=== PATIENT | male | born 1970 | race Caucasian/White ===

== ENCOUNTER 2021-04-04 09:57 | Inpatient (IN) ==
[2021-04-04 10:44] LABS: Basophils # (auto) 0.01 K/uL (0-0.2); Basophils % (auto) 0.2 %; Eosinophils # (auto) 0.09 K/uL (0-0.5); Eosinophils % (auto) 1.4 %; Hemoglobin 15.2 g/dL (14.0-18.0); Immature Granulocytes # (auto) 0.02 K/uL (0.00-0.02); Immature Granulocytes % (auto) 0.3 %; Lymphocytes # (auto) 2.05 K/uL (1.2-3.4); Lymphocytes % (auto) 32.6 %; Mean Corpuscular Hgb Conc 35.3 g/dL (32-36); Mean Corpuscular Volume 87.6 fL (80-100); Mean Platelet Volume 9.9 fL (7.4-10.4); Monocytes # (auto) 0.59 K/uL (0.11-0.59); Monocytes % (auto) 9.4 %; Neutrophils # (auto) 3.52 K/uL (1.4-6.5); Neutrophils % (auto) 56.1 %; Platelet Count 222 K/uL (130-400); RDW Coefficient of Variation 12.7 % (11.5-14.5); RDW Standard Deviation 40.5 fL (36.4-46.3); Red Blood Count 4.91 M/uL (4.7-6.1); White Blood Count 6.28 K/uL (4.8-10.8)
[2021-04-04] MEDS ORDERED: MoRPHine SULFATE 4 MG/ML 1 ML CARP\\VIAL IV STA (10:54)
[2021-04-04] MEDS ORDERED: SODIUM CHLORIDE 0.9% 1000ML 1,000 ML IV ONE (10:54)
[2021-04-04] MEDS ORDERED: ONDANSETRON INJ 2 MG/ML 2 ML VIAL IV STA (10:54)
--- NOTE | 2021-04-04 10:57 | Emergency Department Note ---
Impression & Plan Abdominal pain, Morbid obesity ED Provider Note NAME: CRISTOFER [id number] TESHA AGE: 50 SEX: M : 1970 ARRIVES VIA: Walk-In INFORMANT: Patient ED PROVIDER(S): Pietro Valdovinos DO CHIEF COMPLAINT: abdominal pain HPI: Patient is a 50-year-old male who presents the ER for abdominal pain. He notes this pain has been getting worse over the past month. Admits to nausea and vomiting. Very small bowel movement in past 48hrs. Pain is a 10-10 diffuse but worse in the lower quadrants. Admits to nausea. Denies any dysuria, urgency, or frequency. Notes he has been taking his Lasix. He was seen and evaluated in group home referred in for further work-up. Pain is significantly worsened on palpation. ROS: See above HPI for pertinent positives & negatives. A total of 10 systems reviewed and were otherwise negative. PAST MEDICAL HISTORY:See Below PAST SURGICAL HISTORY:See Below FAMILY HISTORY:See Below SOCIAL HISTORY:See Below HOME MEDICATIONS:See Below ALLERGIES:See Below VITALS:See Below PHYSICAL EXAMINATION: GENERAL: Sitting up in bed, alert, morbidly obese, disheveled EYE EXAM: normal conjunctiva. OROPHARYNX: no exudate, no erythema, lips, buccal mucosa, and tongue normal and mucous membranes are moist NECK: supple, no nuchal rigidity, no adenopathy, non-tender LUNGS: Clear to auscultation. Normal chest wall mechanics HEART: no murmurs, S1 normal and S2 normal ABDOMEN: Abdomen distended with old midline incisions acutely tender with guarding diffusely worse in the right lower UPPER EXTREMITIES: upper extremities are grossly normal. LOWER EXTREMITIES: No pitting edema. NEURO EXAM: Normal sensorium, cranial nerves II-XII grossly intact, normal speech, no gross weakness of arms, no gross weakness of legs. MEDICAL DECISION MAKING: Patient is a 50-year-old male morbidly obese who presents the ER for diffuse abd ominal pain. He was tachycardic. IV was established blood work was obtained. Labs show no significant leukocytosis or anemia. BMP with slightly elevated chloride. LFTs bilirubin was unremarkable. Lipase was normal. Covid was negative. CT abdomen pelvis showed no acute pathology. Unable to perform with IV contrast. As he had persistent pain discussed with general surgery Mely uptiggeremias who evaluate the patient at bedside with Dr. Abraham per her report. They recommended admission to internal medicine. Discussed with Dr. Mariusz Marie who then discussed the case with general surgery and general surgery did decide to admit the patient. Patient was given IV fluids and 2 doses of IV narcotics. He had improvement of his pain. This has been going on for several days now. Patient was updated bedside admitted for further work-up. Triage Nursing notes reviewed. Limited review of prior medical records performed Vital Signs: reviewed and remarkable for HTN and tachy Differential diagnosis: Differential diagnoses includes but is not limited to gastritis, peptic ulcer disease, GERD, gallbladder disease, pancreatitis, small bowel obstruction, acute coronary syndrome, pericarditis, ischemic bowel, irritable bowel disease, irritable bowel syndrome, appendicitis, diverticulitis, malignancy, hernia, urinary tract infection, torsion, perforation, trauma, infectious. ER treatment provided: See below Diagnostics interpreted by me: ECG: none Cardiac Monitoring: An order was placed for continuous cardiac monitoring. The monitor shows a rate of 94 with sinus rhythm. Laboratory studies: As stated above and show below. Imaging studies: CT abdomen pelvis was unremarkable for any acute pathology Consultation(s): Discussed with general surgery and the hospitalist as discussed above Procedures: none Critical Care: None Past Med/Surg History Medical History (Updated 04/04/21 @ 16:35 by Pietro Valdovinos DO) Cholelithiasis without obstruction Incisional hernia Morbid obesity Surgical History (Updated 10/25/20 @ 15:38 by Javed Rey DO, FACS) History of major abdominal surgery Social History Smoking Status: Former smoker Hx Alcohol Use: No Hx Substance Use: No Communication Ability: Effective Station Engineer Required: No Beliefs That Will Affect Care: None Current Living Situation: Other Current Living Situation Comment: Inmate at [facility] Feels Safe at Home: Yes Assistive Devices: Cane Assistive Devices Comment: brace for left leg Allergies Allergies Allergy/AdvReac Type Severity Reaction Status Date / Time Iodinated Contrast Media Allergy Swelling Verified 04/04/21 11:05 of Lip/Tongue/Throat Home Meds Home Medications Medication Instructions Recorded Confirmed buspirone 15 mg tablet 15 mg PO BID 10/29/20 04/04/21 diclofenac sodium 50 mg 50 mg PO TID PRN 10/29/20 04/04/21 tablet,delayed release dicyclomine 20 mg tablet 20 mg PO BID 10/29/20 04/04/21 fluticasone 500 mcg-salmeterol 50 1 inh INHALATION BID 10/29/20 04/04/21 mcg/dose blistr powdr for inhalation (Wixela Inhub) furosemide 20 mg tablet 20 mg PO DAILY PRN 10/29/20 04/04/21 levalbuterol tartrate 45 2 inh INHALATION QID 10/29/20 04/04/21 mcg/actuation aerosol inhaler (Xopenex HFA) lisinopril 10 mg tablet 10 mg PO DAILY 10/29/20 04/04/21 mirtazapine 45 mg tablet 45 mg PO PM 10/29/20 04/04/21 pantoprazole 40 mg tablet,delayed 40 mg PO DAILY 10/29/20 04/04/21 release rosuvastatin 20 mg tablet 20 mg PO HS tab 10/29/20 04/04/21 simethicone 80 mg chewable tablet 80 mg PO BID tab 10/29/20 04/04/21 (Mi-Acid Gas Relief (simethicone)) olanzapine 15 mg tablet (Zyprexa) 15 mg PO HS 04/04/21 04/04/21 oxcarbazepine 600 mg tablet 600 mg PO BID 04/04/21 04/04/21 Results & Data (ED) Vital Signs Vital Signs - 24 hr 04/04/21 10:13 04/04/21 11:53 04/04/21 12:50 Temperature 36.8 C Temperature Source Oral Pulse Rate 107 H Pulse Rate [Finger] 101 H 98 H Pulse Rhythm Regular Pulse Strength Normal Respiratory Rate 20 28 H 20 Respiratory Effort / Characteristics Non-Labored Respiratory Depth Normal Respiratory Pattern Regular Blood Pressure 144/83 H Blood Pressure [Left Arm] 135/86 118/79 Blood Pressure Mean 103 Blood Pressure Mean [Left Arm] 102 92 Pulse Oximetry 94 94 93 Oxygen Delivery Method Room Air Room Air Room Air Sepsis Recent Fever Within 48 Hours No Sepsis New/Unexplained Change in Mental Status N/A Sepsis Action Taken by Nursing No Action Required 04/04/21 14:03 Temperature Temperature Source Pulse Rate Pulse Rate [Finger] 99 H Pulse Rhythm Pulse Strength Respiratory Rate 20 Respiratory Effort / Characteristics Respiratory Depth Respiratory Pattern Blood Pressure Blood Pressure [Left Arm] 102/70 Blood Pressure Mean Blood Pressure Mean [Left Arm] 80 Pulse Oximetry 94 Oxygen Delivery Method Room Air Sepsis Recent Fever Within 48 Hours Sepsis New/Unexplained Change in Mental Status Sepsis Action Taken by Nursing Laboratory Data Result diagrams: 04/04/21 10:34 04/04/21 10:35 Lab Results 04/04/21 04/04/21 04/04/21 Range/Units 10:34 10:35 14:05 WBC 6.28 (4.8-10.8) K/uL RBC 4.91 (4.7-6.1) M/uL Hgb 15.2 (14.0-18.0) g/dL Hct 43.0 (42-52) % MCV 87.6 (80-100) fL MCH 31.0 (25-34) pg MCHC 35.3 (32-36) g/dL RDW Std Deviation 40.5 (36.4-46.3) fL RDW Coeff of Jazzy 12.7 (11.5-14.5) % Plt Count 222 (130-400) K/uL MPV 9.9 (7.4-10.4) fL Immature Gran % (Auto) 0.3 % Neut % (Auto) 56.1 % Lymph % (Auto) 32.6 % [place] % (Auto) 9.4 % Eos % (Auto) 1.4 % Baso % (Auto) 0.2 % Neut # (Auto) 3.52 (1.4-6.5) K/uL Lymph # (Auto) 2.05 (1.2-3.4) K/uL [place] # (Auto) 0.59 (0.11-0.59) K/uL Eos # (Auto) 0.09 (0-0.5) K/uL Baso # (Auto) 0.01 (0-0.2) K/uL Immature Gran # (Auto) 0.02 (0.00-0.02) K/uL Sodium 142 (136-145) mmol/L Potassium 3.8 (3.5-5.1) mmol/L Chloride 109 H (98-107) mmol/L Carbon Dioxide 25 (21-32) mmol/L Anion Gap 9.0 (3-11) BUN 9 (7-18) mg/dl Creatinine 0.60 (0.6-1.4) mg/dl Est Cr Clr Drug Dosing 223.3 ml/min Est GFR ( Amer) 135.9 ml/min Est GFR (Non-Af Amer) 117.2 ml/min BUN/Creatinine Ratio 15.2 (10-20) Glucose 160 H (70-99) mg/dl Calcium 9.1 (8.5-10.1) mg/dl Total Bilirubin 0.3 (0.2-1) mg/dl AST 24 (15-37) U/L ALT 55 (12-78) U/L Alkaline Phosphatase 100 (45-117) U/L Total Protein 7.4 (6.4-8.2) gm/dl Albumin 3.6 (3.4-5.0) gm/dl Globulin 3.7 (2.5-4.0) gm/dl Albumin/Globulin Ratio 1.0 (0.9-2) Lipase 143 (73-393) U/L COVID-19 Eval Order Covid19 at [facility] SARS-CoV-2 (PCR) (Negative) 04/04/21 Range/Units 14:05 WBC (4.8-10.8) K/uL RBC (4.7-6.1) M/uL Hgb (14.0-18.0) g/dL Hct (42-52) % MCV (80-100) fL MCH (25-34) pg MCHC (32-36) g/dL RDW Std Deviation (36.4-46.3) fL RDW Coeff of Jazzy (11.5-14.5) % Plt Count (130-400) K/uL MPV (7.4-10.4) fL Immature Gran % (Auto) % Neut % (Auto) % Lymph % (Auto) % [place] % (Auto) % Eos % (Auto) % Baso % (Auto) % Neut # (Auto) (1.4-6.5) K/uL Lymph # (Auto) (1.2-3.4) K/uL [place] # (Auto) (0.11-0.59) K/uL Eos # (Auto) (0-0.5) K/uL Baso # (Auto) (0-0.2) K/uL Immature Gran # (Auto) (0.00-0.02) K/uL Sodium (136-145) mmol/L Potassium (3.5-5.1) mmol/L Chloride (98-107) mmol/L Carbon Dioxide (21-32) mmol/L Anion Gap (3-11) BUN (7-18) mg/dl Creatinine (0.6-1.4) mg/dl Est Cr Clr Drug Dosing ml/min Est GFR ( Amer) ml/min Est GFR (Non-Af Amer) ml/min BUN/Creatinine Ratio (10-20) Glucose (70-99) mg/dl Calcium (8.5-10.1) mg/dl Total Bilirubin (0.2-1) mg/dl AST (15-37) U/L ALT (12-78) U/L Alkaline Phosphatase (45-117) U/L Total Protein (6.4-8.2) gm/dl Albumin (3.4-5.0) gm/dl Globulin (2.5-4.0) gm/dl Albumin/Globulin Ratio (0.9-2) Lipase (73-393) U/L COVID-19 Eval Order SARS-CoV-2 (PCR) NEGATIVE (Negative) Administered Medications Discontinued Medications Sodium Chloride (Nss 1000ml) 1,000 mls @ 999 mls/hr IV .Q1H1M ONE Stop: 04/04/21 11:54 Last Infusion: 04/04/21 12:28 Dose: 0 mls/hr Documented by: [id number] Admin: 04/04/21 11:02 Dose: 999 mls/hr Documented by: [id number] Morphine Sulfate (Morphine Sulfate 4 Mg/Ml 1 Ml Carp\Vial) 4 mg IV NOW STA Stop: 04/04/21 10:55 Last Admin: 04/04/21 11:02 Dose: 4 mg Documented by: [id number] Morphine Sulfate (Morphine Sulfate 10 Mg/Ml Carp/Vial) 6 mg IV NOW STA Stop: 04/04/21 13:31 Last Admin: 04/04/21 14:04 Dose: 6 mg Documented by: [id number] Ondansetron HCl (Ondansetron Inj 2 Mg/Ml 2 Ml Vial) 4 mg IV NOW STA Stop: 04/04/21 10:55 Last Admin: 04/04/21 11:02 Dose: 4 mg Documented by: [id number] Imaging Data Radiologist's Impression: Abdomen/Pelvis CT 04/04/21 11:07 CT OF THE ABDOMEN AND PELVIS WITHOUT CONTRAST CLINICAL HISTORY: Severe abdominal pain and vomiting. Possible small bowel obstruction. COMPARISON STUDY: CT of the abdomen and pelvis December 02, 2020. TECHNIQUE: Axial images of the abdomen and pelvis were obtained without IV contrast. Images were reviewed in the axial, sagittal, and coronal planes. Automated exposure control was utilized for the study. A dose lowering technique was utilized adhering to the principles of ALARA. FINDINGS: No renal, ureteral or bladder calculi are present. There is no hydronephrosis or hydroureter. Evaluation of the remainder of the abdomen and pelvis is suboptimal on this unenhanced exam. Hepatic steatosis is present. The spleen, adrenal glands and pancreas are unremarkable. There is no peripancreatic or pericholecystic infiltration. No biliary or pancreatic ductal dilatation. A small bowel anastomosis is noted. There is no evidence for a bowel obstruction. Several hernias are noted. One hernia contains a portion of the small bowel. This does not result in a bowel obstruction. Colonic diverticulosis is noted without evidence for acute diverticulitis. The appendix is not visualized. There is no lymphadenopathy. There is no ascites. Left femoral internal fixation is partially imaged. Postoperative findings of the anterior abdominal wall are noted. There is a suspected mass. IMPRESSION: 1. No urinary calculi or hydronephrosis. 2. No bowel obstruction. 3. Several ventral hernias, as described above. 4. Hepatic steatosis. 5. Colonic diverticulosis without evidence for acute diverticulitis. ACT 112: Negative or not required by law. Electronically signed by: Serjio Eduardo M.D. 04/04/2021 12:35 PM Discharge Plan Visit Data Chief Complaint: Abdominal Pain Stated Complaint: ABD PAIN ED Provider: Pietro Valdovinos Discharge Problem: Abdominal pain, Morbid obesity Patient Disposition: Admitted As Inpatient Discharge Instructions Interventions: ED Discharge Assessment Last Done: 04/04/21 16:05
[2021-04-04 11:06] LABS: Albumin Level 3.6 gm/dl (3.4-5.0); BUN Creatinine Ratio 15.2 (10-20); Calcium 9.1 mg/dl (8.5-10.1); Creatinine Clr Calc Pharmacy 223.3 ml/min; Est GFR (African American) 135.9 ml/min; Est GFR (Non-African American) 117.2 ml/min; Potassium 3.8 mmol/L (3.5-5.1)
[2021-04-04 11:09] LABS: Bilirubin,Total 0.3 mg/dl (0.2-1); Globulin 3.7 gm/dl (2.5-4.0); Total Protein 7.4 gm/dl (6.4-8.2)
--- NOTE | 2021-04-04 12:36 | CT Scan Report ---
CT OF THE ABDOMEN AND PELVIS WITHOUT CONTRAST CLINICAL HISTORY: Severe abdominal pain and vomiting. Possible small bowel obstruction. COMPARISON STUDY: CT of the abdomen and pelvis December 02, 2020. TECHNIQUE: Axial images of the abdomen and pelvis were obtained without IV contrast. Images were revi ewed in the axial, sagittal, and coronal planes. Automated exposure control was utilized for the aayush dy. A dose lowering technique was utilized adhering to the principles of ALARA. FINDINGS: No renal, ureteral or bladder calculi are present. There is no hydronephrosis or hydrourete r. Evaluation of the remainder of the abdomen and pelvis is suboptimal on this unenhanced exam. Hepat ic steatosis is present. The spleen, adrenal glands and pancreas are unremarkable. There is no peripa ncreatic or pericholecystic infiltration. No biliary or pancreatic ductal dilatation. A small bowel a nastomosis is noted. There is no evidence for a bowel obstruction. Several hernias are noted. One her jeremias contains a portion of the small bowel. This does not result in a bowel obstruction. Colonic diver ticulosis is noted without evidence for acute diverticulitis. The appendix is not visualized. There i s no lymphadenopathy. There is no ascites. Left femoral internal fixation is partially imaged. Postop erative findings of the anterior abdominal wall are noted. There is a suspected mass. IMPRESSION: 1. No urinary calculi or hydronephrosis. 2. No bowel obstruction. 3. Several ventral hernias, as described above. 4. Hepatic steatosis. 5. Colonic diverticulosis without evidence for acute diverticulitis. ACT 112: Negative or not required by law. Electronically signed by: Serjio Eduardo M.D. 04/04/2021 12:35 PM
[2021-04-04] MEDS ORDERED: MoRPHine SULFATE 10 MG/ML CARP/VIAL IV STA (13:30)
--- NOTE | 2021-04-04 15:29 | Surgery Consultation ---
Date of Consultation April 04, 2021 Assessment & Plan (1) Abdominal pain: Present on Admission?: Yes (2) Incisional hernia: pt is a 50 year-old male who presents with 2 months history abdominal pain with nausea and vomiting, IMP: abdominal pain, SBO, incisional hernia, umbilical hernia, Plan, admit to hospital, NPO, IV fluid, control pain, repeat labs and KUB in morning, no emergent surgery indication now, will F/U, possible surgery treatmen t if pt's condition is getting worse, pt understood, he agrees with the plan, I answered all questions, SCD History of Present Illness Reason for Consultation: abdominal pain Requesting Physician: Peitro Valdovinos DO Attending Physician: Carolina Abraham MD History of Present Illness CHIEF COMPLAINT: abdominal pain HPI: Patient is a 50-year-old male who presents the ER for abdominal pain. He notes this pain getting worse over the past month. Admits to nausea and vomiting. Very small bowel movement. Pain is a 10-10 diffuse but worse in the lower quadrant. Admits to nausea. Denies any dysuria urgency or frequency. Notes he has been taking his Lasix. He was seen and evaluated in [facility] referred in for further work-up. Pain is significantly worsened on palpation. I ( Carolina Abraham MD ) got a call for consult abdominal pain, I reviewed pt's H/P, labs, CT scan with pt, ROS: See above HPI for pertinent positives & negatives. A total of 10 systems reviewed and were otherwise negative. PAST MEDICAL HISTORY: See Below PAST SURGICAL HISTORY: See Below FAMILY HISTORY: See Below SOCIAL HISTORY: See Below HOME MEDICATIONS: See Below ALLERGIES: See Below Allergies Allergy/AdvReac Type Severity Reaction Status Date / Time Iodinated Contrast Media Allergy Swelling Verified 04/04/21 11:05 of Lip/Tongue/Throat Home Medications Medication Instructions Recorded Confirmed Type buspirone 15 mg tablet 15 mg PO BID 10/29/20 04/04/21 History diclofenac sodium 50 mg 50 mg PO TID PRN 10/29/20 04/04/21 History tablet,delayed release dicyclomine 20 mg tablet 20 mg PO BID 10/29/20 04/04/21 History fluticasone 500 mcg-salmeterol 50 1 inh INHALATION BID 10/29/20 04/04/21 History mcg/dose blistr powdr for inhalation (Wixela Inhub) furosemide 20 mg tablet 20 mg PO DAILY PRN 10/29/20 04/04/21 History levalbuterol tartrate 45 2 inh INHALATION QID 10/29/20 04/04/21 History mcg/actuation aerosol inhaler (Xopenex HFA) lisinopril 10 mg tablet 10 mg PO DAILY 10/29/20 04/04/21 History mirtazapine 45 mg tablet 45 mg PO PM 10/29/20 04/04/21 History pantoprazole 40 mg tablet,delayed 40 mg PO DAILY 10/29/20 04/04/21 History release rosuvastatin 20 mg tablet 20 mg PO HS tab 10/29/20 04/04/21 History simethicone 80 mg chewable tablet 80 mg PO BID tab 10/29/20 04/04/21 History (Mi-Acid Gas Relief (simethicone)) olanzapine 15 mg tablet (Zyprexa) 15 mg PO HS 04/04/21 04/04/21 History oxcarbazepine 600 mg tablet 600 mg PO BID 04/04/21 04/04/21 History Patient History Medical History (Updated 04/04/21 @ 15:30 by Carolina Abraham MD) Cholelithiasis without obstruction Incisional hernia Morbid obesity Surgical History (Updated 10/25/20 @ 15:38 by Javed Rey DO, FACS) History of major abdominal surgery Social History Smoking Status: Never smoker Feels Safe at Home: Yes Review of Systems Eyes: as per Subjective / HPI Respiratory: as per Subjective / HPI Cardiovascular: as per Subjective / HPI Gastrointestinal: as per Subjective / HPI gallstone, perforated colon during colonoscopy Genitourinary: + as per Subjective / HPI Musculoskeletal: as per Subjective / HPI Neurologic: as per Subjective / HPI Psychiatric: as per Subjective / HPI Hematologic / Lymphatic: as per Subjective / HPI Physical Exam Constitutional: WD/WN, vitals as above obesity Eyes: PERRL, conjunctivae normal, anicteric sclerae Neck: trachea midline, no thyromegaly Respiratory: normal respiratory effort, lungs clear to auscultation Cardiovascular: RRR, no murmur, no edema Gastrointestinal (Abdomen): soft, tenderness at periumbilical area, 2 small ventral hernia, reducible, and umbilical hernai, mild tenderness, no rebound pain, BS +, no distend, middle line scar, for colon surgery Musculoskeletal: no cyanosis or clubbing, extremities motor strength 5/5 Neurologic: patellar DTR's 2+ bilat, sensation intact Psychiatric: A+Ox3, euthymic affect Results & Data ([facility]) Vital Signs (Past 12 Hours) Vital Signs Temp Pulse Pulse Resp BP BP Pulse Ox 04/04/21 14:37 94 H 18 117/70 93 04/04/21 14:03 99 H 20 102/70 94 04/04/21 12:50 98 H 20 118/79 93 04/04/21 11:53 101 H 28 H 135/86 94 04/04/21 10:13 36.8 C 107 H 20 144/83 H 94 Laboratory Results Abnormal lab results 04/04/21 Range/Units 10:35 Chloride 109 H (98-107) mmol/L Glucose 160 H (70-99) mg/dl Diagnostic Findings CT OF THE ABDOMEN AND PELVIS WITHOUT CONTRAST CLINICAL HISTORY: Severe abdominal pain and vomiting. Possible small bowel obstruction. COMPARISON STUDY: CT of the abdomen and pelvis December 02, 2020. TECHNIQUE: Axial images of the abdomen and pelvis were obtained without IV contrast. Images were reviewed in the axial, sagittal, and coronal planes. Automated exposure control was utilized for the study. A dose lowering technique was utilized adhering to the principles of ALARA. FINDINGS: No renal, ureteral or bladder calculi are present. There is no hydronephrosis or hydroureter. Evaluation of the remainder of the abdomen and pelvis is suboptimal on this unenhanced exam. Hepatic steatosis is present. The spleen, adrenal glands and pancreas are unremarkable. There is no peripancreatic or pericholecystic infiltration. No biliary or pancreatic ductal dilatation. A small bowel anastomosis is noted. There is no evidence for a bowel obstruction. Several hernias are noted. One hernia contains a portion of the small bowel. This does not result in a bowel obstruction. Colonic diverticulosis is noted without evidence for acute diverticulitis. The appendix is not visualized. There is no lymphadenopathy. There is no ascites. Left femoral internal fixation is partially imaged. Postoperative findings of the anterior abdominal wall are noted. There is a suspected mass. IMPRESSION: 1. No urinary calculi or hydronephrosis. 2. No bowel obstruction. 3. Several ventral hernias, as described above. 4. Hepatic steatosis. 5. Colonic diverticulosis without evidence for acute diverticulitis. (1) Incisional hernia Obstruction and gangrene presence: without obstruction or gangrene Qualified Code(s): K43.2 - Incisional hernia without obstruction or gangrene
[2021-04-04] MEDS ORDERED: MoRPHine SULFATE 2 MG/ML CARP IV PRN (16:11)
[2021-04-04] MEDS ORDERED: MoRPHine SULFATE 4 MG/ML 1 ML CARP\\VIAL ONE (16:42)
[2021-04-04] MEDS: LACTATED RINGER'S 1,000 ML IV SCH (16:56)
--- NOTE | 2021-04-04 18:44 | XRay Report ---
XR chest 1V portable HISTORY: NG tube placement. COMPARISON: Abdomen and pelvis CT 04/04/2021. FINDINGS: Nasogastric tube is identified with the tip terminating in the fundus of the stomach. There are low lung volumes. No pneumothorax. No pleural effusions. The heart is mildly enlarged. No focal lung consolidations to suggest pneumonia. IMPRESSION: Nasogastric tube terminates in the stomach. ACT 112: Negative or not required by law. Electronically signed by: Ariel Pedersen M.D. 04/04/2021 6:42 PM
[2021-04-04] MEDS: LEVALBUTEROL TARTRATE 15 GM HFA.AER.AD INH SCH (18:59)
[2021-04-04 19:08] LABS: Appearance Urine Clear (Clear); Bilirubin Urine Negative (Negative); Blood Urine Negative (Negative); Color Urine Dark Yellow; Glucose Urine UA Negative (Negative); Ketones Urine Negative (Negative); Leukocyte Esterase Urine Negative (Negative); Nitrite Urine Negative (Negative); Protein Urine Negative (Negative); Urobilinogen Urine Negative (Negative); pH Urine 5.5 (4.5-7.5)
[2021-04-04] MEDS: ONDANSETRON INJ 2 MG/ML 2 ML VIAL IV PRN (19:53)
[2021-04-04] MEDS: MoRPHine SULFATE 4 MG/ML 1 ML CARP\\VIAL IV PRN ×2 (19:53→23:03)
[2021-04-04] MEDS: MIRTAZAPINE SOLTAB 15 MG PO SCH (20:25)
[2021-04-04] MEDS: OXcarbazepine 150 MG TABLET PO SCH (20:26)
[2021-04-04] MEDS: busPIRone 15 MG TAB PO SCH (20:26)
[2021-04-04] MEDS: OLANZapine 5 MG TABLET PO SCH (20:27)
[2021-04-04] MEDS: SIMETHICONE 80 MG CHEW PO SCH (20:27)
[2021-04-05] MEDS: LACTATED RINGER'S 1,000 ML IV SCH ×3 (01:27→16:17)
[2021-04-05] MEDS: MoRPHine SULFATE 4 MG/ML 1 ML CARP\\VIAL IV PRN ×8 (02:19→22:35)
[2021-04-05 06:32] LABS: Basophils # (auto) 0.02 K/uL (0-0.2); Basophils % (auto) 0.3 %; Eosinophils % (auto) 1.6 %; Hematocrit (blood only) 41.1 % (42-52); Hemoglobin 13.7 g/dL (14.0-18.0); Immature Granulocytes # (auto) 0.01 K/uL (0.00-0.02); Immature Granulocytes % (auto) 0.2 %; Lymphocytes # (auto) 1.88 K/uL (1.2-3.4); Lymphocytes % (auto) 29.6 %; Mean Corpuscular Hemoglobin 29.9 pg (25-34); Mean Corpuscular Hgb Conc 33.3 g/dL (32-36); Mean Corpuscular Volume 89.7 fL (80-100); Mean Platelet Volume 10.1 fL (7.4-10.4); Monocytes # (auto) 0.69 K/uL (0.11-0.59); Monocytes % (auto) 10.8 %; Neutrophils # (auto) 3.66 K/uL (1.4-6.5); Neutrophils % (auto) 57.5 %; Platelet Count 220 K/uL (130-400); RDW Coefficient of Variation 12.9 % (11.5-14.5); RDW Standard Deviation 42.2 fL (36.4-46.3); Red Blood Count 4.58 M/uL (4.7-6.1); White Blood Count 6.36 K/uL (4.8-10.8)
[2021-04-05 06:59] LABS: Albumin Level 3.4 gm/dl (3.4-5.0); BUN Creatinine Ratio 24.2 (10-20); Calcium 8.7 mg/dl (8.5-10.1); Creatinine Clr Calc Pharmacy 209.6 ml/min; Est GFR (African American) 134.1 ml/min; Est GFR (Non-African American) 115.7 ml/min; Potassium 3.6 mmol/L (3.5-5.1)
[2021-04-05 07:02] LABS: Bilirubin,Total 0.8 mg/dl (0.2-1); Globulin 3.4 gm/dl (2.5-4.0); Total Protein 6.8 gm/dl (6.4-8.2)
[2021-04-05] MEDS: LEVALBUTEROL TARTRATE 15 GM HFA.AER.AD INH SCH ×4 (07:09→18:51)
[2021-04-05] MEDS: ONDANSETRON INJ 2 MG/ML 2 ML VIAL IV PRN ×2 (08:15→20:30)
[2021-04-05] MEDS: FLUTICASONE/VILANTEROL 200/25MCG 14 PUFFS/INHALER INH SCH (08:15)
[2021-04-05] MEDS: lisinopril 10 MG TAB PO SCH (08:16)
[2021-04-05] MEDS: PANTOprazole 40 MG TAB PO SCH (08:16)
[2021-04-05] MEDS: OXcarbazepine 150 MG TABLET PO SCH ×2 (08:16→20:41)
[2021-04-05] MEDS: busPIRone 15 MG TAB PO SCH ×3 (08:16→20:41)
[2021-04-05] MEDS: SIMETHICONE 80 MG CHEW PO SCH (08:16)
--- NOTE | 2021-04-05 10:50 | XRay Report ---
KUB HISTORY: generalized abdominal pain COMPARISON: Abdomen and pelvis CT 04/04/2021. FINDINGS: A nasogastric tube terminates at the level the diaphragm at the expected location of the ga stroesophageal junction. This should be advanced by approximately 5 to 10 cm. Mild dilated gas-filled loops of small bowel seen within the left side of the abdomen which have progressed in the interval. These measure up to 4.2 cm in diameter. There are surgical clips within the right lower quadrant. Th ere is gas and stool seen throughout the nondistended colon. Postoperative changes seen within the pr oximal left femur. No renal calculi. No ureteral calculi. No pneumoperitoneum or pneumatosis. IMPRESSION: 1. Nasogastric tube terminates at the gastroesophageal junction. This should be advanced by approxima tely 5 to 10 cm. 2. Mildly dilated gas-filled loops of small bowel within the left side of the abdomen which have prog ressed in the interval. This could represent an ileus versus partial small bowel obstruction. Follow- up recommended to ensure resolution. ACT 112: Negative or not required by law. Electronically signed by: Ariel Pedersen M.D. 04/05/2021 10:49 AM
--- NOTE | 2021-04-05 12:21 | Surgery Progress Note ---
Date of Service April 05, 2021 Assessment & Plan (1) Abdominal pain: Plan: 50 year-old male with significant abdominal surgical history (colectomy for perforated colon s/p colonoscopy and polypectomy, ventral hernia repair with mesh 13 x 17 cm, ex lap with removal of ingested foreign body and small bowel resection 2019) and chronic history of abdominal pain and constipation. Per [facility] records: patient has been in ED multiple times in 2019 for chronic abdominal pain and constipation. laboratory findings and ct findings unremarkable. Outpatient GI eval recommended. Per patient he requires multiple bowel regimens including miralax, stool softeners, enema, magnesium citrate to have bowel movement. No leukocytosis KUB today showing mildly distended small bowel loopsin LUQ could represent SBO vs ileus Plan: stat lactic acid given pain, distended and rigid abdomen Given patients shortness of breath and morbid obesity would like to consult medicine for further evaluation. Given patients history of chronic abdominal pain and constipation with similar ED visits and presentation in [facility] records will consult [facility] Continue NGT to LIS, advance 5-10 cm Continue pain management as needed (2) Incisional hernia: Plan: multiple small hernias on ct scan with loop of small bowel in one however not incarcerated and no signs of obstruction at site of hernia. plan as above Plan: pt is a 50 year-old male who presents with 2 months history abdominal pain with nausea and vomiting, IMP: abdominal pain, SBO, incisional hernia, umbilical hernia, Plan, admit to hospital, NPO, IV fluid, control pain, repeat labs and KUB in morning, no emergent surgery indication now, will F/U, possible surgery treatment if pt's condition is getting worse, pt understood, he agrees with the plan, I answered all questions, SCD Admission and Anticipated Discharge Date Admission Date: April 04, 2021 Subjective patient still having a lot of abdominal pain, no real improvement, having trouble breathing due to the pain and bloating no flatus or bowel movement no nausea or vomiting NGT placed and intact Physical Exam Constitutional: + morbidly obese and + in distress Respiratory: + labored breathing; no respiratory distress, no retractions and does not use accessory muscles Gastrointestinal (Abdomen): Inspection/Auscultation: + abdomen distended and + abdominal surgical scar (midline laparotomy scar present); + abnormal bowel sounds Percussion/Palpation: + abdomen tender, + guarding and + abdomen rigid; + abdomen not soft (firm) Skin: no rashes, warm and dry Psychiatric: Orientation: alert, oriented x 3 and cooperative Results & Data ([facility]) Vital Signs (Past 12 Hours) Vital Signs Temp Pulse Resp BP Pulse Ox Pulse Ox 04/05/21 11:10 93 H 22 94 04/05/21 10:39 92 04/05/21 08:03 36.8 C 94 H 22 132/80 94 04/05/21 07:10 85 20 94 Laboratory Results 04/05/21 04/05/21 04/05/21 Range/Units 13:54 13:54 13:54 WBC (4.8-10.8) K/uL RBC (4.7-6.1) M/uL Hgb (14.0-18.0) g/dL Hct (42-52) % MCV (80-100) fL MCH (25-34) pg MCHC (32-36) g/dL RDW Std Deviation (36.4-46.3) fL RDW Coeff of Jazzy (11.5-14.5) % Plt Count (130-400) K/uL MPV (7.4-10.4) fL Immature Gran % (Auto) % Neut % (Auto) % Lymph % (Auto) % Wake % (Auto) % Eos % (Auto) % Baso % (Auto) % Neut # (Auto) (1.4-6.5) K/uL Lymph # (Auto) (1.2-3.4) K/uL Wake # (Auto) (0.11-0.59) K/uL Eos # (Auto) (0-0.5) K/uL Baso # (Auto) (0-0.2) K/uL Immature Gran # (Auto) (0.00-0.02) K/uL VBG pH 7.39 (7.36-7.41) VBG pCO2 47 (38-50) mmHg VBG pO2 59 mmHg VBG HCO3 28 mmol/L VBG O2 Saturation 90.6 % VBG Base Excess 2.1 mEq/L Barometric Pressure 733.0 mm/Hg Sodium (136-145) mmol/L Potassium (3.5-5.1) mmol/L Chloride (98-107) mmol/L Carbon Dioxide (21-32) mmol/L Anion Gap (3-11) BUN (7-18) mg/dl Creatinine (0.6-1.4) mg/dl Est Cr Clr Drug Dosing ml/min Est GFR ( Amer) ml/min Est GFR (Non-Af Amer) ml/min BUN/Creatinine Ratio (10-20) Glucose (70-99) mg/dl Lactate (0.4-2.0) mmol/L Calcium (8.5-10.1) mg/dl Total Bilirubin (0.2-1) mg/dl AST (15-37) U/L ALT (12-78) U/L Alkaline Phosphatase (45-117) U/L NT-Pro-B Natriuret Pep 7 (0-900) pg/ml Total Protein (6.4-8.2) gm/dl Albumin (3.4-5.0) gm/dl Globulin (2.5-4.0) gm/dl Albumin/Globulin Ratio (0.9-2) Procalcitonin < 0.05 (0-0.5) ng/ml Urine Color Urine Appearance (Clear) Urine pH (4.5-7.5) Ur Specific [place] (1.000-1.030) Urine Protein (Negative) Urine Glucose (UA) (Negative) Urine Ketones (Negative) Urine Blood (Negative) Urine Nitrite (Negative) Urine Bilirubin (Negative) Urine Urobilinogen (Negative) Ur Leukocyte Esterase (Negative) Nasal Screen MRSA (PCR) (Negative) 04/05/21 04/05/21 04/05/21 Range/Units 12:01 05:35 05:35 WBC 6.36 (4.8-10.8) K/uL RBC 4.58 L (4.7-6.1) M/uL Hgb 13.7 L (14.0-18.0) g/dL Hct 41.1 L (42-52) % MCV 89.7 (80-100) fL MCH 29.9 (25-34) pg MCHC 33.3 (32-36) g/dL RDW Std Deviation 42.2 (36.4-46.3) fL RDW Coeff of Jazzy 12.9 (11.5-14.5) % Plt Count 220 (130-400) K/uL MPV 10.1 (7.4-10.4) fL Immature Gran % (Auto) 0.2 % Neut % (Auto) 57.5 % Lymph % (Auto) 29.6 % Wake % (Auto) 10.8 % Eos % (Auto) 1.6 % Baso % (Auto) 0.3 % Neut # (Auto) 3.66 (1.4-6.5) K/uL Lymph # (Auto) 1.88 (1.2-3.4) K/uL Wake # (Auto) 0.69 H (0.11-0.59) K/uL Eos # (Auto) 0.10 (0-0.5) K/uL Baso # (Auto) 0.02 (0-0.2) K/uL Immature Gran # (Auto) 0.01 (0.00-0.02) K/uL VBG pH (7.36-7.41) VBG pCO2 (38-50) mmHg VBG pO2 mmHg VBG HCO3 mmol/L VBG O2 Saturation % VBG Base Excess mEq/L Barometric Pressure mm/Hg Sodium 143 (136-145) mmol/L Potassium 3.6 (3.5-5.1) mmol/L Chloride 108 H (98-107) mmol/L Carbon Dioxide 27 (21-32) mmol/L Anion Gap 8.0 (3-11) BUN 15 D (7-18) mg/dl Creatinine 0.62 (0.6-1.4) mg/dl Est Cr Clr Drug Dosing 209.6 ml/min Est GFR ( Amer) 134.1 ml/min Est GFR (Non-Af Amer) 115.7 ml/min BUN/Creatinine Ratio 24.2 H (10-20) Glucose 74 (70-99) mg/dl Lactate 1.0 (0.4-2.0) mmol/L Calcium 8.7 (8.5-10.1) mg/dl Total Bilirubin 0.8 D (0.2-1) mg/dl AST 31 (15-37) U/L ALT 51 (12-78) U/L Alkaline Phosphatase 84 (45-117) U/L NT-Pro-B Natriuret Pep (0-900) pg/ml Total Protein 6.8 (6.4-8.2) gm/dl Albumin 3.4 (3.4-5.0) gm/dl Globulin 3.4 (2.5-4.0) gm/dl Albumin/Globulin Ratio 1.0 (0.9-2) Procalcitonin (0-0.5) ng/ml Urine Color Urine Appearance (Clear) Urine pH (4.5-7.5) Ur Specific [place] (1.000-1.030) Urine Protein (Negative) Urine Glucose (UA) (Negative) Urine Ketones (Negative) Urine Blood (Negative) Urine Nitrite (Negative) Urine Bilirubin (Negative) Urine Urobilinogen (Negative) Ur Leukocyte Esterase (Negative) Nasal Screen MRSA (PCR) (Negative) 04/04/21 04/04/21 Range/Units 19:00 17:00 WBC (4.8-10.8) K/uL RBC (4.7-6.1) M/uL Hgb (14.0-18.0) g/dL Hct (42-52) % MCV (80-100) fL MCH (25-34) pg MCHC (32-36) g/dL RDW Std Deviation (36.4-46.3) fL RDW Coeff of Jazzy (11.5-14.5) % Plt Count (130-400) K/uL MPV (7.4-10.4) fL Immature Gran % (Auto) % Neut % (Auto) % Lymph % (Auto) % Wake % (Auto) % Eos % (Auto) % Baso % (Auto) % Neut # (Auto) (1.4-6.5) K/uL Lymph # (Auto) (1.2-3.4) K/uL Wake # (Auto) (0.11-0.59) K/uL Eos # (Auto) (0-0.5) K/uL Baso # (Auto) (0-0.2) K/uL Immature Gran # (Auto) (0.00-0.02) K/uL VBG pH (7.36-7.41) VBG pCO2 (38-50) mmHg VBG pO2 mmHg VBG HCO3 mmol/L VBG O2 Saturation % VBG Base Excess mEq/L Barometric Pressure mm/Hg Sodium (136-145) mmol/L Potassium (3.5-5.1) mmol/L Chloride (98-107) mmol/L Carbon Dioxide (21-32) mmol/L Anion Gap (3-11) BUN (7-18) mg/dl Creatinine (0.6-1.4) mg/dl Est Cr Clr Drug Dosing ml/min Est GFR ( Amer) ml/min Est GFR (Non-Af Amer) ml/min BUN/Creatinine Ratio (10-20) Glucose (70-99) mg/dl Lactate (0.4-2.0) mmol/L Calcium (8.5-10.1) mg/dl Total Bilirubin (0.2-1) mg/dl AST (15-37) U/L ALT (12-78) U/L Alkaline Phosphatase (45-117) U/L NT-Pro-B Natriuret Pep (0-900) pg/ml Total Protein (6.4-8.2) gm/dl Albumin (3.4-5.0) gm/dl Globulin (2.5-4.0) gm/dl Albumin/Globulin Ratio (0.9-2) Procalcitonin (0-0.5) ng/ml Urine Color Dark Yellow Urine Appearance Clear (Clear) Urine pH 5.5 (4.5-7.5) Ur Specific [place] 1.020 (1.000-1.030) Urine Protein Negative (Negative) Urine Glucose (UA) Negative (Negative) Urine Ketones Negative (Negative) Urine Blood Negative (Negative) Urine Nitrite Negative (Negative) Urine Bilirubin Negative (Negative) Urine Urobilinogen Negative (Negative) Ur Leukocyte Esterase Negative (Negative) Nasal Screen MRSA (PCR) Negative (Negative) Diagnostic Findings KUB HISTORY: generalized abdominal pain COMPARISON: Abdomen and pelvis CT 04/04/2021. FINDINGS: A nasogastric tube terminates at the level the diaphragm at the expected location of the gastroesophageal junction. This should be advanced by approximately 5 to 10 cm. Mild dilated gas-filled loops of small bowel seen within the left side of the abdomen which have progressed in the interval. These measure up to 4.2 cm in diameter. There are surgical clips within the right lower quadrant. There is gas and stool seen throughout the nondistended colon. Postoperative changes seen within the proximal left femur. No renal calculi. No ureteral calculi. No pneumoperitoneum or pneumatosis. IMPRESSION: 1. Nasogastric tube terminates at the gastroesophageal junction. This should be advanced by approximately 5 to 10 cm. 2. Mildly dilated gas-filled loops of small bowel within the left side of the abdomen which have progressed in the interval. This could represent an ileus versus partial small bowel obstruction. Follow-up recommended to ensure resolution. (1) Incisional hernia Obstruction and gangrene presence: without obstruction or gangrene Qualified Code(s): K43.2 - Incisional hernia without obstruction or gangrene (2) Abdominal pain Abdominal location: unspecified location Qualified Code(s): R10.9 - Unspecified abdominal pain
--- NOTE | 2021-04-05 12:54 | Hospitalist Consultation ---
Date of Consultation April 05, 2021 Assessment & Plan (1) Shortness of breath: Subjective shortness of breath with some mild hypoxemia (unclear if chronic or not). - Ddx includes undertreated COPD (known hx), CHF (has hx of leg swelling on Lasix PRN, but no CHF noted), infection (eg pneumonia), obesity hypoventilation, or even simply pressure from increased abdominal girth. * Start tiotropium as this is first-line COPD treatment for stable COPD * CT chest to better r/o acute etiologies of shortness of breath * Procalcitonin, VBG, and BNP * CPAP/BiPap HS PRN which patient reports he had been using at assisted. * Treat abdominal distension per primary team. As this improves, it may improve respiratory status (2) COPD (chronic obstructive pulmonary disease): Patient feels this is not similar to prior COPD exacerbations, and I agree that he has minimal lower airway wheezing and no increase in I/E ratio. - Continue home maintenance inhaler - Start tiotropium as above - DuoNebs PRN (3) Abdominal pain: Ongoing episodes of abdominal pain and distension. - Per primary team (4) Hypertension: BP was 130/80 today. - Continue home lisinopril (5) Hyperlipidemia: - Continue home statin (6) Depression: Appears stable during my interview. - Continue home buspirone, mirtazapine, olanzapine, and oxcarbazepine (7) DVT prophylaxis: SCDs - Defer heparin to primary team. Some consideration of surgery, so holding heparin for now. History of Present Illness Reason for Consultation: Shortness of breath Attending Physician: Carolina Abraham MD History of Present Illness 50yo M w/ hx of COPD who presents as a medical consult for shortness of breath. He was admitted yesterday for abdominal pain and distension which is a recurrent problem for him. Surgery and GI are working this up, though his CT a/p did not show any acute concerns. In particular no SBO, no obstruction. He did have some hernias, but only one had loops of bowel, and it was no incarcerated. He reports continued abdominal distension today. We were consulted for shortness of breath. He reports that when his abdomen gets distended, he has increased shortness of breath. He reports that lying flat makes it worse and having to bend over makes it worse as well. He has a hx of COPD, but feels this is different as he reports the COPD makes him feel like he has a hard time exhaling and this is different. Allergies Allergy/AdvReac Type Severity Reaction Status Date / Time Iodinated Contrast Media Allergy Swelling Verified 04/04/21 11:05 of Lip/Tongue/Throat Home Medications Medication Instructions Recorded Confirmed Type buspirone 15 mg tablet 15 mg PO BID 10/29/20 04/04/21 History diclofenac sodium 50 mg 50 mg PO TID PRN 10/29/20 04/04/21 History tablet,delayed release dicyclomine 20 mg tablet 20 mg PO BID 10/29/20 04/04/21 History fluticasone 500 mcg-salmeterol 50 1 inh INHALATION BID 10/29/20 04/04/21 History mcg/dose blistr powdr for inhalation (Wixela Inhub) furosemide 20 mg tablet 20 mg PO DAILY PRN 10/29/20 04/04/21 History levalbuterol tartrate 45 2 inh INHALATION QID 10/29/20 04/04/21 History mcg/actuation aerosol inhaler (Xopenex HFA) lisinopril 10 mg tablet 10 mg PO DAILY 10/29/20 04/04/21 History mirtazapine 45 mg tablet 45 mg PO PM 10/29/20 04/04/21 History pantoprazole 40 mg tablet,delayed 40 mg PO DAILY 10/29/20 04/04/21 History release rosuvastatin 20 mg tablet 20 mg PO HS tab 10/29/20 04/04/21 History simethicone 80 mg chewable tablet 80 mg PO BID tab 10/29/20 04/04/21 History (Mi-Acid Gas Relief (simethicone)) olanzapine 15 mg tablet (Zyprexa) 15 mg PO HS 04/04/21 04/04/21 History oxcarbazepine 600 mg tablet 600 mg PO BID 04/04/21 04/04/21 History Patient History Medical History (Updated 04/05/21 @ 13:22 by Mariusz Marie MD) Cholelithiasis without obstruction COPD (chronic obstructive pulmonary disease) Depression Hyperlipidemia Hypertension Incisional hernia Morbid obesity Surgical History History of major abdominal surgery Social History Smoking Status: Former smoker Hx Alcohol Use: No Hx Substance Use: No Communication Ability: Effective Technology Risk Intern Required: No Beliefs That Will Affect Care: None Current Living Situation: Other Current Living Situation Comment: Inmate at [facility] Feels Safe at Home: Yes Assistive Devices: Cane Assistive Devices Comment: brace for left leg Review of Systems Review of Systems: All systems reviewed & are unremarkable except as noted in HPI & below Physical Exam Constitutional: WD/WN, vitals as above + acute distress Eyes: EOM intact bilaterally; no conjunctival abnormality ENMT: external ear and nose normal, oropharynx normal Neck: trachea midline, no thyromegaly normal visual inspection Respiratory: no respiratory distress, no cough and not tachypneic Auscultat ion: + wheezes (But sound upper airway to me.); normal I/E ratio Cardiovascular: RRR, no murmur, no edema Gastrointestinal (Abdomen): Inspection/Auscultation: + abdomen distended; + abdomen abnormal to inspection Percussion/Palpation: + abdomen tender (Diffuse) and abdomen soft; no guarding and abdomen not rigid Musculoskeletal: no cyanosis or clubbing, extremities motor strength 5/5 Skin: no rashes, warm and dry Neurologic: moves all extremities and awake Psychiatric: Orientation: alert, oriented to person and cooperative Results & Data Results & Data ([facility]) Vital Signs (Past 12 Hours) Vital Signs Temp Pulse Resp BP Pulse Ox Pulse Ox 04/05/21 11:10 93 H 22 94 04/05/21 10:39 92 04/05/21 08:03 36.8 C 94 H 22 132/80 94 04/05/21 07:10 85 20 94 PG Care Time/CCT Total # of Minutes Spent Total Time Spent with Patient: Total time spent is greater than 50% in coordination of care (as documented) at patient's floor/unit and/or counseling patient: Coding Level of Care Code 10923 Inpt Consult Level 4 Diagnoses Shortness of breath R06.02 COPD (chronic obstructive pulmonary disease) J44.9 Abdominal pain R10.9 Abdominal location: unspecified location DVT prophylaxis Z29.9 Hypertension I10 Hyperlipidemia E78.5 Depression F32.9 (1) Abdominal pain Abdominal location: unspecified location Qualified Code(s): R10.9 - Unspecified abdominal pain
[2021-04-05 14:08] LABS: Base Excess VBG 2.1 mEq/L; Oxygen Saturation VBG 90.6 %; pH VBG 7.39 (7.36-7.41)
--- NOTE | 2021-04-05 14:42 | Gastrointestinal Consultation ---
Date of Consultation April 05, 2021 Assessment & Plan (1) Abdominal pain: 50 year old male admitted w/ abd pain and constipation, initial CT w/o acute findings, KUB this AM raising concern for SBO vs ileus. He remains symptomatic w/ NG in place Agree w/ conservative management per general surgery team Consider adding Bentyl 10 mg three times daily to help limit narcotic use NPO IV fluids Repeat KUB in AM Given his history of chronic constipation, once able to tolerate PO would recom mend resuming bowel regimen with miralax 1-2 capfuls BID No current plan nor indication for EGD/Colonoscopy but he should follow up after discharge for EGD/Colonoscopy for colon cancer screening as he is overdue given his family history of colon cancer in mother, father and sister Supervising Physician Co-Signing Physician Notes I have seen and examined the patient with NAIMA Thompson whose note reflects our findings and plan. Admitted with abd pain and worsening of chronic constipation. KUB concerning for ileus vs SBO. Repeat film this AM pending. less pain. Will need a bowel regimen upon discharge. Once his constipation is addressed and improves he will need an outpatient endoscopic evaluation for f amily history of colon cancer in multiple first degree relatives. History of Present Illness Reason for Consultation: abd pain Requesting Physician: Jarad Attending Physician: Carolina Abraham MD History of Present Illness 50 year old male with history of COPD, CHF, dyslipidemia admitted through the ED w/ abd pain and worsening constipation imaging concerning for SBO vs ileus. He has a complex surgical history. Notes he underwent screening colonoscopy 10+ years ago as his father, sister and mother passed from colon cancer. Underwent a large polypectomy at OSH and notes he woke up with pain, imaging at that time consistent with a perforation. S/P exploratory laparotomy at that time and later incisional hernia repair in 2013. In 2019 he underwent exploratory laparotomy, removal of intentionally swallowed foreign body and had a small bowel resection. Notes since he has had issues with constipation. Suggests Bowels are small, hard to pass about every 2/3 days. Denies any issues with nausea/vomiting. About 1/2 weeks ago developed abd pain, worsening constipation. Denies weight loss. No fever, chills, CP. Chronic SOB. + family history of colon cancer KUB 2020: Nasogastric tube terminates at the gastroesophageal junction. This should be advanced by approximately 5 to 10 cm. Mildly dilated gas-filled loops of small bowel within the left side of the abdomen which have progressed in the interval. This could represent an ileus versus partial small bowel obstruction. Follow-up recommended to ensure resolution. CTAP 2020: . No urinary calculi or hydronephrosis. No bowel obstruction. Several ventral hernias, as described above.. Hepatic steatosis.. Colonic diverticulosis without evidence for acute diverticulitis. Allergies Allergy/AdvReac Type Severity Reaction Status Date / Time Iodinated Contrast Media Allergy Swelling Verified 04/04/21 11:05 of Lip/Tongue/Throat Home Medications Medication Instructions Recorded Confirmed Type buspirone 15 mg tablet 15 mg PO BID 10/29/20 04/04/21 History diclofenac sodium 50 mg 50 mg PO TID PRN 10/29/20 04/04/21 History tablet,delayed release dicyclomine 20 mg tablet 20 mg PO BID 10/29/20 04/04/21 History fluticasone 500 mcg-salmeterol 50 1 inh INHALATION BID 10/29/20 04/04/21 History mcg/dose blistr powdr for inhalation (Wixela Inhub) furosemide 20 mg tablet 20 mg PO DAILY PRN 10/29/20 04/04/21 History levalbuterol tartrate 45 2 inh INHALATION QID 10/29/20 04/04/21 History mcg/actuation aerosol inhaler (Xopenex HFA) lisinopril 10 mg tablet 10 mg PO DAILY 10/29/20 04/04/21 History mirtazapine 45 mg tablet 45 mg PO PM 10/29/20 04/04/21 History pantoprazole 40 mg tablet,delayed 40 mg PO DAILY 10/29/20 04/04/21 History release rosuvastatin 20 mg tablet 20 mg PO HS tab 10/29/20 04/04/21 History simethicone 80 mg chewable tablet 80 mg PO BID tab 10/29/20 04/04/21 History (Mi-Acid Gas Relief (simethicone)) olanzapine 15 mg tablet (Zyprexa) 15 mg PO HS 04/04/21 04/04/21 History oxcarbazepine 600 mg tablet 600 mg PO BID 04/04/21 04/04/21 History Patient History Medical History (Updated 04/05/21 @ 13:22 by Maruisz Marie MD) Cholelithiasis without obstruction COPD (chronic obstructive pulmonary disease) Depression Hyperlipidemia Hypertension Incisional hernia Morbid obesity Surgical History History of major abdominal surgery Social History Smoking Status: Former smoker Hx Alcohol Use: No Hx Substance Use: No Communication Ability: Effective White Mixing Operator Required: No Beliefs That Will Affect Care: None Current Living Situation: Other Current Living Situation Comment: Inmate at [facility] Feels Safe at Home: Yes Assistive Devices: Walker Assistive Devices Comment: brace for left leg Review of Systems Review of Systems: All systems reviewed & are unremarkable except as noted in HPI & below Physical Exam Constitutional: WD/WN, vitals as above No acute distress. Sitting upright in bed with NG in place. Respiratory: normal respiratory effort, lungs clear to auscultation Cardiovascular: RRR, no murmur, no edema Gastrointestinal (Abdomen): Soft but distended abd w/ report of pain x 4 quadrants with palpation. No rebound or guarding. Skin: no rashes, warm and dry Results & Data ([facility]) Vital Signs (Past 12 Hours) Vital Signs Temp Pulse Resp BP Pulse Ox Pulse Ox 04/05/21 11:10 93 H 22 94 04/05/21 10:39 92 04/05/21 08:03 36.8 C 94 H 22 132/80 94 04/05/21 07:10 85 20 94 Laboratory Results 04/05/21 04/05/21 04/05/21 Range/Units 13:54 13:54 13:54 WBC (4.8-10.8) K/uL RBC (4.7-6.1) M/uL Hgb (14.0-18.0) g/dL Hct (42-52) % MCV (80-100) fL MCH (25-34) pg MCHC (32-36) g/dL RDW Std Deviation (36.4-46.3) fL RDW Coeff of Jazzy (11.5-14.5) % Plt Count (130-400) K/uL MPV (7.4-10.4) fL Immature Gran % (Auto) % Neut % (Auto) % Lymph % (Auto) % [place] % (Auto) % Eos % (Auto) % Baso % (Auto) % Neut # (Auto) (1.4-6.5) K/uL Lymph # (Auto) (1.2-3.4) K/uL [place] # (Auto) (0.11-0.59) K/uL Eos # (Auto) (0-0.5) K/uL Baso # (Auto) (0-0.2) K/uL Immature Gran # (Auto) (0.00-0.02) K/uL VBG pH 7.39 (7.36-7.41) VBG pCO2 47 (38-50) mmHg VBG pO2 59 mmHg VBG HCO3 28 mmol/L VBG O2 Saturation 90.6 % VBG Base Excess 2.1 mEq/L Barometric Pressure 733.0 mm/Hg Sodium (136-145) mmol/L Potassium (3.5-5.1) mmol/L Chloride (98-107) mmol/L Carbon Dioxide (21-32) mmol/L Anion Gap (3-11) BUN (7-18) mg/dl Creatinine (0.6-1.4) mg/dl Est Cr Clr Drug Dosing ml/min Est GFR ( Amer) ml/min Est GFR (Non-Af Amer) ml/min BUN/Creatinine Ratio (10-20) Glucose (70-99) mg/dl Lactate (0.4-2.0) mmol/L Calcium (8.5-10.1) mg/dl Total Bilirubin (0.2-1) mg/dl AST (15-37) U/L ALT (12-78) U/L Alkaline Phosphatase (45-117) U/L NT-Pro-B Natriuret Pep 7 (0-900) pg/ml Total Protein (6.4-8.2) gm/dl Albumin (3.4-5.0) gm/dl Globulin (2.5-4.0) gm/dl Albumin/Globulin Ratio (0.9-2) Procalcitonin Pending Urine Color Urine Appearance (Clear) Urine pH (4.5-7.5) Ur Specific [place] (1.000-1.030) Urine Protein (Negative) Urine Glucose (UA) (Negative) Urine Ketones (Negative) Urine Blood (Negative) Urine Nitrite (Negative) Urine Bilirubin (Negative) Urine Urobilinogen (Negative) Ur Leukocyte Esterase (Negative) Nasal Screen MRSA (PCR) (Negative) SARS-CoV-2 (PCR) (Negative) 04/05/21 04/05/21 04/05/21 Range/Units 12:01 05:35 05:35 WBC 6.36 (4.8-10.8) K/uL RBC 4.58 L (4.7-6.1) M/uL Hgb 13.7 L (14.0-18.0) g/dL Hct 41.1 L (42-52) % MCV 89.7 (80-100) fL MCH 29.9 (25-34) pg MCHC 33.3 (32-36) g/dL RDW Std Deviation 42.2 (36.4-46.3) fL RDW Coeff of Jazzy 12.9 (11.5-14.5) % Plt Count 220 (130-400) K/uL MPV 10.1 (7.4-10.4) fL Immature Gran % (Auto) 0.2 % Neut % (Auto) 57.5 % Lymph % (Auto) 29.6 % [place] % (Auto) 10.8 % Eos % (Auto) 1.6 % Baso % (Auto) 0.3 % Neut # (Auto) 3.66 (1.4-6.5) K/uL Lymph # (Auto) 1.88 (1.2-3.4) K/uL [place] # (Auto) 0.69 H (0.11-0.59) K/uL Eos # (Auto) 0.10 (0-0.5) K/uL Baso # (Auto) 0.02 (0-0.2) K/uL Immature Gran # (Auto) 0.01 (0.00-0.02) K/uL VBG pH (7.36-7.41) VBG pCO2 (38-50) mmHg VBG pO2 mmHg VBG HCO3 mmol/L VBG O2 Saturation % VBG Base Excess mEq/L Barometric Pressure mm/Hg Sodium 143 (136-145) mmol/L Potassium 3.6 (3.5-5.1) mmol/L Chloride 108 H (98-107) mmol/L Carbon Dioxide 27 (21-32) mmol/L Anion Gap 8.0 (3-11) BUN 15 D (7-18) mg/dl Creatinine 0.62 (0.6-1.4) mg/dl Est Cr Clr Drug Dosing 209.6 ml/min Est GFR ( Amer) 134.1 ml/min Est GFR (Non-Af Amer) 115.7 ml/min BUN/Creatinine Ratio 24.2 H (10-20) Glucose 74 (70-99) mg/dl Lactate 1.0 (0.4-2.0) mmol/L Calcium 8.7 (8.5-10.1) mg/dl Total Bilirubin 0.8 D (0.2-1) mg/dl AST 31 (15-37) U/L ALT 51 (12-78) U/L Alkaline Phosphatase 84 (45-117) U/L NT-Pro-B Natriuret Pep (0-900) pg/ml Total Protein 6.8 (6.4-8.2) gm/dl Albumin 3.4 (3.4-5.0) gm/dl Globulin 3.4 (2.5-4.0) gm/dl Albumin/Globulin Ratio 1.0 (0.9-2) Procalcitonin Urine Color Urine Appearance (Clear) Urine pH (4.5-7.5) Ur Specific [place] (1.000-1.030) Urine Protein (Negative) Urine Glucose (UA) (Negative) Urine Ketones (Negative) Urine Blood (Negative) Urine Nitrite (Negative) Urine Bilirubin (Negative) Urine Urobilinogen (Negative) Ur Leukocyte Esterase (Negative) Nasal Screen MRSA (PCR) (Negative) SARS-CoV-2 (PCR) (Negative) 04/04/21 04/04/21 04/04/21 Range/Units 19:00 17:00 14:05 WBC (4.8-10.8) K/uL RBC (4.7-6.1) M/uL Hgb (14.0-18.0) g/dL Hct (42-52) % MCV (80-100) fL MCH (25-34) pg MCHC (32-36) g/dL RDW Std Deviation (36.4-46.3) fL RDW Coeff of Jazzy (11.5-14.5) % Plt Count (130-400) K/uL MPV (7.4-10.4) fL Immature Gran % (Auto) % Neut % (Auto) % Lymph % (Auto) % [place] % (Auto) % Eos % (Auto) % Baso % (Auto) % Neut # (Auto) (1.4-6.5) K/uL Lymph # (Auto) (1.2-3.4) K/uL [place] # (Auto) (0.11-0.59) K/uL Eos # (Auto) (0-0.5) K/uL Baso # (Auto) (0-0.2) K/uL Immature Gran # (Auto) (0.00-0.02) K/uL VBG pH (7.36-7.41) VBG pCO2 (38-50) mmHg VBG pO2 mmHg VBG HCO3 mmol/L VBG O2 Saturation % VBG Base Excess mEq/L Barometric Pressure mm/Hg Sodium (136-145) mmol/L Potassium (3.5-5.1) mmol/L Chloride (98-107) mmol/L Carbon Dioxide (21-32) mmol/L Anion Gap (3-11) BUN (7-18) mg/dl Creatinine (0.6-1.4) mg/dl Est Cr Clr Drug Dosing ml/min Est GFR ( Amer) ml/min Est GFR (Non-Af Amer) ml/min BUN/Creatinine Ratio (10-20) Glucose (70-99) mg/dl Lactate (0.4-2.0) mmol/L Calcium (8.5-10.1) mg/dl Total Bilirubin (0.2-1) mg/dl AST (15-37) U/L ALT (12-78) U/L Alkaline Phosphatase (45-117) U/L NT-Pro-B Natriuret Pep (0-900) pg/ml Total Protein (6.4-8.2) gm/dl Albumin (3.4-5.0) gm/dl Globulin (2.5-4.0) gm/dl Albumin/Globulin Ratio (0.9-2) Procalcitonin Urine Color Dark Yellow Urine Appearance Clear (Clear) Urine pH 5.5 (4.5-7.5) Ur Specific [place] 1.020 (1.000-1.030) Urine Protein Negative (Negative) Urine Glucose (UA) Negative (Negative) Urine Ketones Negative (Negative) Urine Blood Negative (Negative) Urine Nitrite Negative (Negative) Urine Bilirubin Negative (Negative) Urine Urobilinogen Negative (Negative) Ur Leukocyte Esterase Negative (Negative) Nasal Screen MRSA (PCR) Negative (Negative) SARS-CoV-2 (PCR) NEGATIVE (Negative) (1) Abdominal pain Abdominal location: unspecified location Qualified Code(s): R10.9 - Unspecified abdominal pain
--- NOTE | 2021-04-05 14:49 | CT Scan Report ---
CT SCAN OF THE CHEST WITHOUT IV CONTRAST CLINICAL HISTORY: Dyspnea. Hypoxia. COMPARISON STUDY: Chest x-ray dated 04/04/2021. TECHNIQUE: CT scan of the thorax was performed from the thoracic inlet to the upper abdomen. Images are reviewed in the axial, sagittal, and coronal planes. IV contrast was not administered for this ex amination as per the referring clinician. A dose lowering technique was utilized adhering to the [facility] of [place]. CT DOSE: 1049.55 mGy.cm FINDINGS: Thyroid: Imaged portions of the thyroid gland are normal in size and attenuation. Thoracic aorta: There is mild atherosclerotic calcification of the thoracic aorta, which is normal in caliber and demonstrates standard 3-vessel arch anatomy. Heart: The heart is top normal in size and without pericardial effusion. There are scattered coronary artery calcifications. Lungs and pleural spaces: Evaluation of the lung parenchyma is modestly degraded by motion artifact. The trachea and central airways are clear. Emphysema is change is noted. There is no airspace consoli dation or pleural effusion. Dependent atelectasis is seen at the lung bases. There are scattered calc ified granulomas. Mediastinum: Scattered subcentimeter mediastinal lymph nodes are not pathologically enlarged by size criteria. Luli: Not well assessed without IV contrast. Axillae: There is no axillary lymphadenopathy. Upper abdomen: An enteric tube is in place. This extends in the stomach. The tip is not Biggs visuali zed. There are severe hepatic steatosis. A tiny hiatal hernia is noted. Skeletal structures: No lytic or blastic bony lesions are seen. IMPRESSION: 1. Mild emphysema. 2. There is no airspace consolidation or pleural effusion. 3. Severe hepatic steatosis. ACT 112: Negative or not required by law. Electronically signed by: Anjum Michelle M.D. 04/05/2021 2:47 PM
[2021-04-05] MEDS ORDERED: MoRPHine SULFATE 2 MG/ML CARP IV PRN (16:11)
--- NOTE | 2021-04-05 16:49 | Ultrasound Report ---
ABDOMINAL ULTRASOUND, RIGHT UPPER QUADRANT HISTORY: Cholelithiasis, abd pain, eval for cholecystitis. COMPARISON: Abdomen and pelvis CT 04/04/2021. FINDINGS: Pancreas: Obscured by overlying bowel gas. Liver: The liver is echogenic consistent with fatty change. 22 cm in length. Gallbladder: No gallbladder wall thickening. There appear to be a few small gallstones. CBD: Not visualized. Right kidney: No hydronephrosis. IMPRESSION: 1. Hepatomegaly demonstrating fatty change. 2. No gallbladder wall thickening. There is suggestion of a few small gallstones. ACT 112: Negative or not required by law. Electronically signed by: Ariel Pedersen M.D. 04/05/2021 4:47 PM
[2021-04-05] MEDS: OLANZapine 5 MG TABLET PO SCH (20:41)
[2021-04-05] MEDS: MIRTAZAPINE SOLTAB 15 MG PO SCH (20:41)
[2021-04-05] MEDS: DICYCLOMINE HCL 10 MG CAP PO SCH (20:41)
[2021-04-05] MEDS: ROSUVASTATIN CALCIUM 20 MG TAB PO SCH (20:41)
[2021-04-06] MEDS: MoRPHine SULFATE 4 MG/ML 1 ML CARP\\VIAL IV PRN ×5 (02:32→20:40)
[2021-04-06] MEDS: LACTATED RINGER'S 1,000 ML IV SCH ×2 (02:32→09:48)
[2021-04-06] MEDS: ONDANSETRON INJ 2 MG/ML 2 ML VIAL IV PRN ×2 (04:46→13:00)
[2021-04-06 07:55] LABS: Basophils # (auto) 0.01 K/uL (0-0.2); Basophils % (auto) 0.2 %; Eosinophils # (auto) 0.08 K/uL (0-0.5); Eosinophils % (auto) 1.3 %; Hematocrit (blood only) 39.4 % (42-52); Hemoglobin 13.1 g/dL (14.0-18.0); Lymphocytes # (auto) 1.22 K/uL (1.2-3.4); Lymphocytes % (auto) 20.5 %; Mean Corpuscular Hemoglobin 30.5 pg (25-34); Mean Corpuscular Hgb Conc 33.2 g/dL (32-36); Mean Corpuscular Volume 91.6 fL (80-100); Mean Platelet Volume 9.9 fL (7.4-10.4); Monocytes % (auto) 10.1 %; Neutrophils # (auto) 4.05 K/uL (1.4-6.5); Neutrophils % (auto) 67.9 %; Platelet Count 209 K/uL (130-400); RDW Coefficient of Variation 12.8 % (11.5-14.5); White Blood Count 5.96 K/uL (4.8-10.8)
[2021-04-06] MEDS: LEVALBUTEROL TARTRATE 15 GM HFA.AER.AD INH SCH ×4 (08:03→19:17)
--- NOTE | 2021-04-06 08:18 | Hospitalist Progress Note ---
Date of Service April 06, 2021 Assessment & Plan (1) Shortness of breath: Plan: Subjective shortness of breath with some mild hypoxemia (unclear if chronic or not). - Ddx includes undertreated COPD (known hx), CHF (has hx of leg swelling on Lasix PRN, but no CHF noted), infection (eg pneumonia), obesity hypoventilation, or even simply pressure from increased abdominal girth. * Started tiotropium as this is first-line COPD treatment for stable COPD * CT chest to better r/o acute etiologies of shortness of breath * Procalcitonin, VBG, and BNP * CPAP/BiPap HS PRN which patient reports he had been using at nursing home. * Treat abdominal distension . As this improves, it may improve respiratory status, ngt does not seem to be able to decompress the abdomen (2) COPD (chronic obstructive pulmonary disease): Plan: Patient feels this is not similar to prior COPD exacerbations, and I agree that he has minimal lower airway wheezing and no increase in I/E ratio. - Continue home maintenance inhaler - Start tiotropium as above - DuoNebs PRN CT chest non contrast 04/05/21 IMPRESSION: 1. Mild emphysema. 2. There is no airspace consolidation or pleural effusion. 3. Severe hepatic steatosis. (3) Abdominal pain: Plan: Initial admission for concern for incisional hernia Ongoing episodes of abdominal pain and distension. CT abd/pelvis 04/04/21 IMPRESSION: 1. No urinary calculi or hydronephrosis. 2. No bowel obstruction. 3. Several ventral hernias, as described above. 4. Hepatic steatosis. 5. Colonic diverticulosis without evidence for acute diverticulitis. u/s abdomen 04/05/21 IMPRESSION: 1. Hepatomegaly demonstrating fatty change. 2. No gallbladder wall thickening. There is suggestion of a few small gallstones. (4) Hypertension: Plan: BP was 130/80 today. - Continue home lisinopril (5) Hyperlipidemia: Plan: - Continue home statin (6) Depression: Plan: Appears stable during my interview. - Continue home buspirone, mirtazapine, olanzapine, and oxcarbazepine (7) DVT prophylaxis: Plan: SCDs - Admission and Anticipated Discharge Date Admission Date: April 05, 2021 Subjective pt still has significantly distended abdomen, no bm, tolerating ngt Review of Systems Review of Systems: Mild distress and fatigue no headache, no visual changes no speech or swallowing issues no chest pain, pressure or palpitations shortness of breath due to distended abdomen distended tender abdomen minor non radicular back pain, CVA tenderness or radicular pain no bruising, bleeding or rashes no focal signs of weakness or numbness or altered sensation no complaints of anxiety or depression.. Physical Exam Physical Exam: The patient appeared uncomfortable Vital signs as documented. Head exam is normocephalic atraumatic Neck is without JVD, thyromegaly, or carotid bruits. Lungs are clear to auscultation, no focal loss of breath sounds Cardiac exam, Rhythm is regular.. No murmurs, rubs or gallops. Abdominal exam revealsabscent bowel sounds, distended and typmpanitic Extremities are trace edematous and both pedal pulses are present Neurologic exam is alert and oriented, no focal loss of strength or sensation Skin is without bruises or rashes Psychologically is without concerns for anxiety or depression Results & Data Results & Data ([facility]) Vital Signs (Past 12 Hours) Vital Signs Temp Pulse Pulse Resp BP Pulse Ox 04/06/21 08:04 85 18 93 04/05/21 22:27 97.9 F 86 20 117/78 94 04/05/21 22:12 94 H 20 92 PG Care Time/CCT Total # of Minutes Spent Total Time Spent with Patient: Total time spent is greater than 50% in coordination of care (as documented) at patient's floor/unit and/or counseling patient: Coding Level of Care Code 89682 Subseq Hosp Care Lvl 2 Diagnoses Shortness of breath R06.02 COPD (chronic obstructive pulmonary disease) J44.9 Abdominal pain R10.9 Abdominal location: unspecified location Hypertension I10 Hyperlipidemia E78.5 Depression F32.9 DVT prophylaxis Z29.9 (1) Abdominal pain Abdominal location: unspecified location Qualified Code(s): R10.9 - Unspecified abdominal pain
[2021-04-06 08:36] LABS: Albumin Level 3.4 gm/dl (3.4-5.0); BUN Creatinine Ratio 30.8 (10-20); Calcium 8.7 mg/dl (8.5-10.1); Creatinine Clr Calc Pharmacy 209.6 ml/min; Est GFR (African American) 134.1 ml/min; Est GFR (Non-African American) 115.7 ml/min; Globulin 3.4 gm/dl (2.5-4.0); Potassium 3.8 mmol/L (3.5-5.1); Total Protein 6.8 gm/dl (6.4-8.2)
--- NOTE | 2021-04-06 09:45 | XRay Report ---
KUB CLINICAL HISTORY: f/u SBO vs ileus COMPARISON STUDY: CT of the abdomen and pelvis April 04, 2021. KUB April 05, 2021. FINDINGS: Left femoral internal fixation hardware is partially imaged. Tip of nasogastric tube projec ts over the gastric cardia. Small bowel dilatation has resolved since prior examination. IMPRESSION: 1. Resolution of small bowel dilatation. 2. Tip of nasogastric tube projects over the gastric cardia. ACT 112: Negative or not required by law. Electronically signed by: Serjio Eduardo M.D. 04/06/2021 9:43 AM
[2021-04-06] MEDS: busPIRone 15 MG TAB PO SCH ×2 (09:50→20:24)
[2021-04-06] MEDS: OXcarbazepine 150 MG TABLET PO SCH ×2 (09:50→20:25)
[2021-04-06] MEDS: PANTOprazole 40 MG TAB PO SCH (09:50)
[2021-04-06] MEDS: lisinopril 10 MG TAB PO SCH (09:51)
[2021-04-06] MEDS: FLUTICASONE/VILANTEROL 200/25MCG 14 PUFFS/INHALER INH SCH (09:51)
[2021-04-06] MEDS: DICYCLOMINE HCL 10 MG CAP PO SCH (09:53)
[2021-04-06] MEDS: UMECLIDINIUM BROMIDE 62.5MCG/BLISTER 7 PUFFS/INHALER INH SCH (09:55)
--- NOTE | 2021-04-06 11:23 | Gastroenterology Progress Note ---
Date of Service April 06, 2021 Assessment & Plan (1) Abdominal pain: Plan: 50 year old male admitted w/ abd pain and constipation, initial CT w/o acute findings, KUB this AM showed resolution of small bowel dilation. NGT in place. He is passing flatus. On exam, his abd is distended but non tender and BS is present. - DC NGT if ok per Surgery - Stop Dicyclomine - Relistor 12mcg today and may repeat every 2 days if needed for constipation - Dulcolax 10mg WA x 1 dose today - Daily bowel regimen recommended: Miralax 17g BID + Dulcolax 10mg qHS - Avoid narcotics - OOB, encourage ambulation - Replete K >4 to promote GI motility - OP EGD/Colonoscopy recommended given family hx of colon ca - Recall GI prn Admission and Anticipated Discharge Date Admission Date: April 05, 2021 Supervising Physician Co-Signing Physician Notes Late entry: Patient was seen and examine don 04/06 with NAIMA Sanchez whose note reflects our findings and plan. Imaging shows resolution of SB dilation. No real BM in 5 days. Agree with D/C of dicyclomine. Relistor to be given along wiht bowel regimen as outlined above. Subjective GI asked to re-eval pt by Surgery team as pt is having abd distension. KUB from this AM reviewed - small bowel dilation resolved Pt c/o abd distension, no n/v, NGT in place (output 1.1L yesterday). Passing flatus but said last BM (little amt of stool) was about 5 days ago. Review of Systems Review of Systems: All systems reviewed & are unremarkable except as noted in HPI & below Physical Exam Constitutional: WD/WN, vitals as above + obese, well groomed and cooperative Eyes: PERRL, conjunctivae normal, anicteric sclerae ENMT: external ear and nose normal, oropharynx normal Respiratory: Oxygen per NC in place; lungs clear to auscultation but labored breathing noted Cardiovascular: RRR, no murmur, no edema Gastrointestinal (Abdomen): Abd distended, non tender, BS present Skin: no rashes, warm and dry no jaundice Psychiatric: A+Ox3, euthymic affect Lymphatic: no lymphedema Results & Data ([facility]) Vital Signs (Past 12 Hours) Vital Signs Temp Pulse Resp BP Pulse Ox 04/06/21 08:04 85 18 93 04/06/21 07:54 36.9 C 91 H 22 135/76 92 (1) Abdominal pain Abdominal location: unspecified location Qualified Code(s): R10.9 - Unspecified abdominal pain
[2021-04-06] MEDS ORDERED: bisacodyL 10 MG SUPP PR ONE (11:30)
[2021-04-06] MEDS ORDERED: METHYLNALTREXONE BROMIDE 12 MG/0.6 ML VIAL SQ ONE (12:00)
--- NOTE | 2021-04-06 13:06 | Surgery Progress Note ---
Date of Service April 06, 2021 Assessment & Plan (1) Abdominal pain: Plan: 50 year-old male with significant abdominal surgical history (colectomy for perforated colon s/p colonoscopy and polypectomy, ventral hernia repair with mesh 13 x 17 cm, ex lap with removal of ingested foreign body and small bowel resection 2019) and chronic history of abdominal pain and constipation. Per [facility] records: patient has been in ED multiple times in 2019 for chronic abdominal pain and constipation. laboratory findings and ct findings unremarkable. Outpatient GI eval recommended. Per patient, he has required multiple bowel regimens including miralax, stool softeners, enemas, magnesium citrate to have bowel movement at the [facility]. No leukocytosis no fever lactic acid and procalcitonin normal US of gallbladder showing stones but no evidence of cholecystitis KUB this morning showing resolution of small bowel distention Plan: Discussed patient again with GI given KUB today showing resolution of the small bowel distention and has no signs of obstruction but abdomen is still distended and tense. Plan is for Relistor and bowel regimen. Avoid narcotics, added Toradol as needed for pain Encourage ambulation start clear liquids Potassium 20 meq PO to reach >4 potassium for GI motility Patient will need outpatient colonoscopy given family history of colon cancer (2) Incisional hernia: Plan: multiple small hernias on ct scan with loop of small bowel in one however not incarcerated and no signs of obstruction at site of hernia. KUB today showing resolution of small bowel distention plan as above Dr. Abraham has seen patient during rounds and agrees with above. Admission and Anticipated Discharge Date Admission Date: April 05, 2021 Subjective patient feeling slightly better this morning prior to going down to get the xray still feeling short of breath when lying flat because of the distention +nausea, no vomiting small amount of flatus but no bowel movement Physical Exam Constitutional: + morbidly obese; no acute distress and not ill appearing Respiratory: normal respiratory effort; no respiratory distress, no labored breathing and no retractions Gastrointestinal (Abdomen): Inspection/Auscultation: + abdomen distended, + abdominal surgical scar (midline laparotomy scar present) and + hypoactive bowel sounds (but there are bowel sounds present in right abdomen); + abnormal bowel sounds Percussion/Palpation: + abdomen tender, + abdomen rigid, + hernia and + ascites (small midline incision hernias); no guarding and + abdomen not soft (firm given distention) Skin: no rashes, warm and dry Psychiatric: Orientation: alert and oriented x 3 Results & Data ([facility]) Vital Signs (Past 12 Hours) Vital Signs Temp Pulse Resp BP Pulse Ox 04/06/21 11:43 84 24 93 04/06/21 08:04 85 18 93 04/06/21 07:54 36.9 C 91 H 22 135/76 92 Laboratory Results 04/06/21 04/06/21 04/05/21 Range/Units 07:20 07:20 13:54 WBC 5.96 (4.8-10.8) K/uL RBC 4.30 L (4.7-6.1) M/uL Hgb 13.1 L (14.0-18.0) g/dL Hct 39.4 L (42-52) % MCV 91.6 (80-100) fL MCH 30.5 (25-34) pg MCHC 33.2 (32-36) g/dL RDW Std Deviation 43.0 (36.4-46.3) fL RDW Coeff of Jazzy 12.8 (11.5-14.5) % Plt Count 209 (130-400) K/uL MPV 9.9 (7.4-10.4) fL Immature Gran % (Auto) 0.0 % Neut % (Auto) 67.9 % Lymph % (Auto) 20.5 % [place] % (Auto) 10.1 % Eos % (Auto) 1.3 % Baso % (Auto) 0.2 % Neut # (Auto) 4.05 (1.4-6.5) K/uL Lymph # (Auto) 1.22 (1.2-3.4) K/uL [place] # (Auto) 0.60 H (0.11-0.59) K/uL Eos # (Auto) 0.08 (0-0.5) K/uL Baso # (Auto) 0.01 (0-0.2) K/uL Immature Gran # (Auto) 0.00 (0.00-0.02) K/uL VBG pH (7.36-7.41) VBG pCO2 (38-50) mmHg VBG pO2 mmHg VBG HCO3 mmol/L VBG O2 Saturation % VBG Base Excess mEq/L Barometric Pressure mm/Hg Sodium 141 (136-145) mmol/L Potassium 3.8 (3.5-5.1) mmol/L Chloride 107 (98-107) mmol/L Carbon Dioxide 26 (21-32) mmol/L Anion Gap 9.0 (3-11) BUN 19 H (7-18) mg/dl Creatinine 0.62 (0.6-1.4) mg/dl Est Cr Clr Drug Dosing 209.6 ml/min Est GFR ( Amer) 134.1 ml/min Est GFR (Non-Af Amer) 115.7 ml/min BUN/Creatinine Ratio 30.8 H (10-20) Glucose 80 (70-99) mg/dl Calcium 8.7 (8.5-10.1) mg/dl Total Bilirubin 1.0 (0.2-1) mg/dl AST 32 (15-37) U/L ALT 45 (12-78) U/L Alkaline Phosphatase 84 (45-117) U/L NT-Pro-B Natriuret Pep 7 (0-900) pg/ml Total Protein 6.8 (6.4-8.2) gm/dl Albumin 3.4 (3.4-5.0) gm/dl Globulin 3.4 (2.5-4.0) gm/dl Albumin/Globulin Ratio 1.0 (0.9-2) Procalcitonin (0-0.5) ng/ml Specimen Hemolysis 04/05/21 04/05/21 Range/Units 13:54 13:54 WBC (4.8-10.8) K/uL RBC (4.7-6.1) M/uL Hgb (14.0-18.0) g/dL Hct (42-52) % MCV (80-100) fL MCH (25-34) pg MCHC (32-36) g/dL RDW Std Deviation (36.4-46.3) fL RDW Coeff of Jazzy (11.5-14.5) % Plt Count (130-400) K/uL MPV (7.4-10.4) fL Immature Gran % (Auto) % Neut % (Auto) % Lymph % (Auto) % [place] % (Auto) % Eos % (Auto) % Baso % (Auto) % Neut # (Auto) (1.4-6.5) K/uL Lymph # (Auto) (1.2-3.4) K/uL [place] # (Auto) (0.11-0.59) K/uL Eos # (Auto) (0-0.5) K/uL Baso # (Auto) (0-0.2) K/uL Immature Gran # (Auto) (0.00-0.02) K/uL VBG pH 7.39 (7.36-7.41) VBG pCO2 47 (38-50) mmHg VBG pO2 59 mmHg VBG HCO3 28 mmol/L VBG O2 Saturation 90.6 % VBG Base Excess 2.1 mEq/L Barometric Pressure 733.0 mm/Hg Sodium (136-145) mmol/L Potassium (3.5-5.1) mmol/L Chloride (98-107) mmol/L Carbon Dioxide (21-32) mmol/L Anion Gap (3-11) BUN (7-18) mg/dl Creatinine (0.6-1.4) mg/dl Est Cr Clr Drug Dosing ml/min Est GFR ( Amer) ml/min Est GFR (Non-Af Amer) ml/min BUN/Creatinine Ratio (10-20) Glucose (70-99) mg/dl Calcium (8.5-10.1) mg/dl Total Bilirubin (0.2-1) mg/dl AST (15-37) U/L ALT (12-78) U/L Alkaline Phosphatase (45-117) U/L NT-Pro-B Natriuret Pep (0-900) pg/ml Total Protein (6.4-8.2) gm/dl Albumin (3.4-5.0) gm/dl Globulin (2.5-4.0) gm/dl Albumin/Globulin Ratio (0.9-2) Procalcitonin < 0.05 (0-0.5) ng/ml Specimen Hemolysis Diagnostic Findings KUB CLINICAL HISTORY: f/u SBO vs ileus COMPARISON STUDY: CT of the abdomen and pelvis April 04, 2021. KUB April 05, 2021. FINDINGS: Left femoral internal fixation hardware is partially imaged. Tip of nasogastric tube projects over the gastric cardia. Small bowel dilatation has resolved since prior examination. IMPRESSION: 1. Resolution of small bowel dilatation. 2. Tip of nasogastric tube projects over the gastric cardia. (1) Incisional hernia Obstruction and gangrene presence: without obstruction or gangrene Qualified Code(s): K43.2 - Incisional hernia without obstruction or gangrene (2) Abdominal pain Abdominal location: unspecified location Qualified Code(s): R10.9 - Unspecified abdominal pain
[2021-04-06] MEDS ORDERED: POTASSIUM CHLORIDE CRTAB 20 MEQ TABCR PO STA (13:10)
[2021-04-06] MEDS: KETOROLAC 30 MG/ML VIAL IV PRN (15:14)
[2021-04-06] MEDS: MIRTAZAPINE SOLTAB 15 MG PO SCH (20:24)
[2021-04-06] MEDS: OLANZapine 5 MG TABLET PO SCH (20:24)
[2021-04-06] MEDS: POLYETHYLENE (MIRALAX) 17 GM PACK PO SCH (20:25)
[2021-04-06] MEDS: ROSUVASTATIN CALCIUM 20 MG TAB PO SCH (20:25)
[2021-04-07] MEDS: KETOROLAC 30 MG/ML VIAL IV PRN ×2 (01:22→07:45)
[2021-04-07] MEDS: ONDANSETRON INJ 2 MG/ML 2 ML VIAL IV PRN ×2 (06:23→23:55)
[2021-04-07 06:46] LABS: Basophils # (auto) 0.01 K/uL (0-0.2); Basophils % (auto) 0.2 %; Eosinophils # (auto) 0.08 K/uL (0-0.5); Eosinophils % (auto) 1.8 %; Hematocrit (blood only) 38.4 % (42-52); Immature Granulocytes # (auto) 0.01 K/uL (0.00-0.02); Immature Granulocytes % (auto) 0.2 %; Lymphocytes # (auto) 1.05 K/uL (1.2-3.4); Lymphocytes % (auto) 24.1 %; Mean Corpuscular Hemoglobin 30.2 pg (25-34); Mean Corpuscular Hgb Conc 33.9 g/dL (32-36); Mean Corpuscular Volume 89.3 fL (80-100); Mean Platelet Volume 9.5 fL (7.4-10.4); Monocytes # (auto) 0.49 K/uL (0.11-0.59); Monocytes % (auto) 11.2 %; Neutrophils # (auto) 2.72 K/uL (1.4-6.5); Neutrophils % (auto) 62.5 %; Platelet Count 175 K/uL (130-400); RDW Coefficient of Variation 12.3 % (11.5-14.5); RDW Standard Deviation 39.5 fL (36.4-46.3); White Blood Count 4.36 K/uL (4.8-10.8)
[2021-04-07] MEDS: LEVALBUTEROL TARTRATE 15 GM HFA.AER.AD INH SCH ×4 (07:10→22:26)
[2021-04-07 07:17] LABS: BUN Creatinine Ratio 21.5 (10-20); Calcium 8.4 mg/dl (8.5-10.1); Creatinine Clr Calc Pharmacy 191.1 ml/min; Est GFR (African American) 129.1 ml/min; Est GFR (Non-African American) 111.4 ml/min; Potassium 3.9 mmol/L (3.5-5.1)
[2021-04-07] MEDS: UMECLIDINIUM BROMIDE 62.5MCG/BLISTER 7 PUFFS/INHALER INH SCH (08:33)
[2021-04-07] MEDS: POLYETHYLENE (MIRALAX) 17 GM PACK PO SCH ×2 (08:33→20:08)
[2021-04-07] MEDS: FLUTICASONE/VILANTEROL 200/25MCG 14 PUFFS/INHALER INH SCH (08:33)
[2021-04-07] MEDS: busPIRone 15 MG TAB PO SCH ×2 (08:34→20:07)
[2021-04-07] MEDS: OXcarbazepine 150 MG TABLET PO SCH ×2 (08:34→20:08)
[2021-04-07] MEDS: PANTOprazole 40 MG TAB PO SCH (08:34)
[2021-04-07] MEDS: lisinopril 10 MG TAB PO SCH (08:37)
--- NOTE | 2021-04-07 10:32 | Hospitalist Progress Note ---
Date of Service April 07, 2021 Assessment & Plan (1) Shortness of breath: Plan: Subjective shortness of breath with some mild hypoxemia (unclear if chronic or not). consider cor pulmonale or venous stasis due to obesity * Started tiotropium as this is first-line COPD treatment for stable COPD if unavailable at the present could try ipratropium inhaled medication or combination * CT chest 04/05/2021mild emphysema, no airspace consolidation or effusion, severe hepatic steatosis * Procalcitonin normal, * CPAP/BiPap HS PRN which patient reports he had been using at halfway. This may lead to air swallowing and abdominal distention * (2) COPD (chronic obstructive pulmonary disease): Plan: Patient feels this is not similar to prior COPD exacerbations, and I agree that he has minimal lower airway wheezing and no increase in I/E ratio. - Continue home maintenance inhaler - Start tiotropium as above - DuoNebs PRN CT chest non contrast 04/05/21 IMPRESSION: 1. Mild emphysema. 2. There is no airspace consolidation or pleural effusion. 3. Severe hepatic steatosis. (3) Abdominal pain: Plan: Initial admission for concern for incisional hernia now refuted Ongoing episodes of abdominal pain and distension. CT abd/pelvis 04/04/21 IMPRESSION: 1. No urinary calculi or hydronephrosis. 2. No bowel obstruction. 3. Several ventral hernias, as described above. 4. Hepatic steatosis. 5. Colonic diverticulosis without evidence for acute diverticulitis. u/s abdomen 04/05/21 IMPRESSION: 1. Hepatomegaly demonstrating fatty change. 2. No gallbladder wall thickening. There is suggestion of a few small gallstones. (4) Hypertension: Plan: BP was 130/80 today. - Continue home lisinopril (5) Hyperlipidemia: Plan: - Continue home statin (6) Depression: Plan: Appears stable during my interview. - Continue home buspirone, mirtazapine, olanzapine, and oxcarbazepine (7) DVT prophylaxis: Plan: SCDs - Admission and Anticipated Discharge Date Admission Date: April 05, 2021 Subjective Patient is tolerating diet. Did have flatus. Research shows his abdomen has examined similar to this on multiple occasions in the past. Is difficult to tell whether he is seeking secondary gain. There is no significant serology abnormalities or abnormalities on imaging. Surgery is considering discharge I see no reason to the contrary at this point time Review of Systems Review of Systems: Mild distress and fatigue no headache, no visual changes no speech or swallowing issues no chest pain, pressure or palpitations shortness of breath due to distended abdomen distended tender abdomen minor non radicular back pain, CVA tenderness or radicular pain no bruising, bleeding or rashes no focal signs of weakness or numbness or altered sensation no complaints of anxiety or depression.. Physical Exam Physical Exam: The patient appeared uncomfortable Vital signs as documented. Head exam is normocephalic atraumatic Neck is without JVD, thyromegaly, or carotid bruits. Lungs are clear to auscultation, no focal loss of breath sounds Cardiac exam, Rhythm is regular.. No murmurs, rubs or gallops. Abdominal exam revealsabscent bowel sounds, distended and typmpanitic Extremities are trace edematous and both pedal pulses are present Neurologic exam is alert and oriented, no focal loss of strength or sensation Skin is without bruises or rashes Psychologically is without concerns for anxiety or depression Results & Data Results & Data ([facility]) Vital Signs (Past 12 Hours) Vital Signs Temp Pulse Pulse Resp BP Pulse Ox 04/07/21 08:38 98.1 F 67 18 123/81 99 04/07/21 07:11 72 16 99 04/07/21 02:33 88 18 94 04/06/21 22:53 98.2 F 79 17 97/63 L 98 PG Care Time/CCT Total # of Minutes Spent Total Time Spent with Patient: Total time spent is greater than 50% in coordination of care (as documented) at patient's floor/unit and/or counseling patient: Coding Level of Care Code 26584 Subseq Hosp Care Lvl 1 Diagnoses Shortness of breath R06.02 COPD (chronic obstructive pulmonary disease) J44.9 Abdominal pain R10.9 Abdominal location: unspecified location Hypertension I10 Hyperlipidemia E78.5 Depression F32.9 DVT prophylaxis Z29.9 (1) Abdominal pain Abdominal location: unspecified location Qualified Code(s): R10.9 - Unspecified abdominal pain
--- NOTE | 2021-04-07 11:40 | Surgery Progress Note ---
Date of Service April 07, 2021 Assessment & Plan (1) Abdominal pain: Plan: 50 year-old male with significant abdominal surgical history (colectomy for perforated colon s/p colonoscopy and polypectomy, ventral hernia repair with mesh 13 x 17 cm, ex lap with removal of ingested foreign body and small bowel resection 2019) and chronic history of abdominal pain and constipation. Per [facility] records: patient has been in ED multiple times in 2019 for chronic abdominal pain and constipation. laboratory findings and ct findings unremarkable. Outpatient GI eval recommended. Per patient, he has required multiple bowel regimens including miralax, stool softeners, enemas, magnesium citrate to have bowel movement at the residential. No leukocytosis no fever lactic acid and procalcitonin normal US of gallbladder showing stones but no evidence of cholecystitis KUB 04/06/2021 showing resolution of small bowel distention Plan: Discussed again with patient that all of his imaging and labs are unremarkable. No indication for surgery. advance to low fiber diet Avoid narcotics, continue Toradol as needed for pain Encourage ambulation Continue bowel regimen as recommended by GI. -Miralax 17 gm BID and Dulcolax 10 mg q HS Patient will need outpatient colonoscopy given family history of colon cancer Planning for discharge tomorrow (2) Incisional hernia: Plan: multiple small hernias on ct scan with loop of small bowel in one however not incarcerated and no signs of obstruction at site of hernia. KUB 04/06/2021 showed resolution of small bowel distention plan as above Dr. Abraham has seen and examined patient agrees with above Admission and Anticipated Discharge Date Admission Date: April 05, 2021 Subjective feeling slightly better than last few days but belly is still distended passed a lot of gas after suppository and small liquid bowel movement tolerating clear liquids, no n/v Physical Exam Constitutional: + morbidly obese; no acute distress and not ill appearing Respiratory: normal respiratory effort; no respiratory distress, no labored breathing and no retractions Gastrointestinal (Abdomen): Inspection/Auscultation: + abdomen distended and + hypoactive bowel sounds Percussion/Palpation: + abdomen tender, + guarding and + abdomen rigid; + abdomen not soft (firm given distention , stable) Skin: no rashes, warm and dry Psychiatric: Orientation: alert and oriented x 3 Results & Data ([facility]) Vital Signs (Past 12 Hours) Vital Signs Temp Pulse Pulse Resp BP Pulse Ox 04/07/21 10:54 68 16 100 04/07/21 08:38 36.7 C 67 18 123/81 99 04/07/21 07:11 72 16 99 04/07/21 02:33 88 18 94 Laboratory Results 04/07/21 04/07/21 04/07/21 Range/Units 06:36 06:30 06:30 WBC 4.36 L (4.8-10.8) K/uL RBC 4.30 L (4.7-6.1) M/uL Hgb 13.0 L (14.0-18.0) g/dL Hct 38.4 L (42-52) % MCV 89.3 (80-100) fL MCH 30.2 (25-34) pg MCHC 33.9 (32-36) g/dL RDW Std Deviation 39.5 (36.4-46.3) fL RDW Coeff of Jazzy 12.3 (11.5-14.5) % Plt Count 175 (130-400) K/uL MPV 9.5 (7.4-10.4) fL Immature Gran % (Auto) 0.2 % Neut % (Auto) 62.5 % Lymph % (Auto) 24.1 % [place] % (Auto) 11.2 % Eos % (Auto) 1.8 % Baso % (Auto) 0.2 % Neut # (Auto) 2.72 (1.4-6.5) K/uL Lymph # (Auto) 1.05 L (1.2-3.4) K/uL [place] # (Auto) 0.49 (0.11-0.59) K/uL Eos # (Auto) 0.08 (0-0.5) K/uL Baso # (Auto) 0.01 (0-0.2) K/uL Immature Gran # (Auto) 0.01 (0.00-0.02) K/uL Sodium 140 (136-145) mmol/L Potassium 3.9 (3.5-5.1) mmol/L Chloride 106 (98-107) mmol/L Carbon Dioxide 28 (21-32) mmol/L Anion Gap 6.0 (3-11) BUN 15 (7-18) mg/dl Creatinine 0.68 (0.6-1.4) mg/dl Est Cr Clr Drug Dosing 191.1 ml/min Est GFR ( Amer) 129.1 ml/min Est GFR (Non-Af Amer) 111.4 ml/min BUN/Creatinine Ratio 21.5 H (10-20) Glucose 93 (70-99) mg/dl Lactate 0.7 (0.4-2.0) mmol/L Calcium 8.4 L (8.5-10.1) mg/dl (1) Incisional hernia Obstruction and gangrene presence: without obstruction or gangrene Qualified Code(s): K43.2 - Incisional hernia without obstruction or gangrene (2) Abdominal pain Abdominal location: unspecified location Qualified Code(s): R10.9 - Unspecified abdominal pain
[2021-04-07] MEDS: MIRTAZAPINE SOLTAB 15 MG PO SCH (20:07)
[2021-04-07] MEDS: ROSUVASTATIN CALCIUM 20 MG TAB PO SCH (20:08)
[2021-04-07] MEDS: OLANZapine 5 MG TABLET PO SCH (20:09)
[2021-04-07] MEDS ORDERED: bisacodyL 5 MG TABEC PO SCH (21:00)
[2021-04-07] MEDS: MoRPHine SULFATE 4 MG/ML 1 ML CARP\\VIAL IV PRN (23:55)
[2021-04-08] MEDS: MoRPHine SULFATE 4 MG/ML 1 ML CARP\\VIAL IV PRN ×2 (03:06→05:44)
[2021-04-08] MEDS: LEVALBUTEROL TARTRATE 15 GM HFA.AER.AD INH SCH ×3 (07:51→15:58)
[2021-04-08] MEDS: KETOROLAC 30 MG/ML VIAL IV PRN (08:31)
[2021-04-08] MEDS: POLYETHYLENE (MIRALAX) 17 GM PACK PO SCH ×2 (08:34→10:50)
[2021-04-08] MEDS: busPIRone 15 MG TAB PO SCH (08:34)
[2021-04-08] MEDS: OXcarbazepine 150 MG TABLET PO SCH (09:01)
[2021-04-08] MEDS: PANTOprazole 40 MG TAB PO SCH (09:01)
[2021-04-08] MEDS: lisinopril 10 MG TAB PO SCH (09:01)
[2021-04-08] MEDS: UMECLIDINIUM BROMIDE 62.5MCG/BLISTER 7 PUFFS/INHALER INH SCH (09:01)
[2021-04-08] MEDS: FLUTICASONE/VILANTEROL 200/25MCG 14 PUFFS/INHALER INH SCH (09:01)
[2021-04-08] MEDS ORDERED: SOD PHOSPHATE/SOD BIPHOSPHATE ENEMA 132 ML BTL PR STA (10:27)
[2021-04-08] MEDS: oxyCODONE/ACETAMINOPHEN 5mg/325mg TAB PO PRN ×2 (11:05→15:30)
--- NOTE | 2021-04-08 11:32 | Gastroenterology Progress Note ---
Date of Service April 08, 2021 Assessment & Plan (1) Abdominal pain: Plan: 50 year old male admitted w/ abd pain and constipation, initial CT w/o acute findings, KUB this AM showed resolution of small bowel dilation. NGT removed. He is passing flatus. On exam, his abd is distended but non tender and BS is present. He had been refusing Miralax in last few day, today c/o abd pain while eating well w/o n/v and is passing flatus. - Obtain repeat KUB; if no signs of obstructive process no contraindication to DC back to [facility] w continued bowel regimen: Miralax 17g BID + Dulcolax 10mg qhs. Narcotics and Dicyclomine should be avoided as they may contribute to co nstipation. - OP EGD/Colonoscopy recommended given family hx of colon ca - Recall GI prn Admission and Anticipated Discharge Date Admission Date: April 05, 2021 Supervising Physician Co-Signing Physician Notes I have discussed the patient's management with the advanced practitioner. Please refer to the nurse practitioner's note for the documented findings and plan of care. Subjective Asked by Surgery team to re-eval pt. He was c/o abd pain this AM, requiring narcotics. Noted he had been refusing Miralax in the last few days Pt reports abd discomfort but is eating well w/o n/v, and also passing flatus. Cannot tell me last BM though noted on chart it was yesterday Review of Systems Review of Systems: All systems reviewed & are unremarkable except as noted in HPI & below Physical Exam Constitutional: WD/WN, vitals as above + obese, well groomed and cooperative Eyes: PERRL, conjunctivae normal, anicteric sclerae ENMT: external ear and nose normal, oropharynx normal Cardiovascular: RRR, no murmur, no edema Gastrointestinal (Abdomen): Abd distended, but good active BS throughout and no signs of tenderness on palpation Skin: no rashes, warm and dry no jaundice Psychiatric: A+Ox3, euthymic affect Lymphatic: no lymphedema Results & Data ([facility]) Vital Signs (Past 12 Hours) Vital Signs Temp Pulse Resp BP Pulse Ox 04/08/21 11:14 85 16 97 04/08/21 07:52 74 16 99 04/08/21 07:36 36.6 C 81 19 138/75 99 (1) Abdominal pain Abdominal location: unspecified location Qualified Code(s): R10.9 - Unspecified abdominal pain
--- NOTE | 2021-04-08 12:17 | Surgery Progress Note ---
Date of Service April 08, 2021 Assessment & Plan (1) Abdominal pain: Plan: 50 year-old male with significant abdominal surgical history (colectomy for perforated colon s/p colonoscopy and polypectomy, ventral hernia repair with mesh 13 x 17 cm, ex lap with removal of ingested foreign body and small bowel resection 2019) and chronic history of abdominal pain and constipation. Per [facility] records: patient has been in ED multiple times in 2019 for chronic abdominal pain and constipation. laboratory findings and ct findings unremarkable. Outpatient GI eval recommended. Per patient, he has required multiple bowel regimens including miralax, stool softeners, enemas, magnesium citrate to have bowel movement at the [facility]. No leukocytosis no fever lactic acid and procalcitonin normal US of gallbladder showing stones but no evidence of cholecystitis KUB 04/06/2021 showing resolution of small bowel distention Plan: Discussed again with patient that all of his imaging and labs are unremarkable. No indication for surgery. Do not know the etiology of his abdominal distention and rigidity. He likely has chronic constipation and decrease motility given his multiple abdominal surgeries and narcotic use. continue low fiber diet Avoid narcotics, continue Toradol as needed for pain Encourage ambulation Continue bowel regimen as recommended by GI. -Miralax 17 gm BID and Dulcolax 10 mg q HS will give fleet enema this morning Patient will need outpatient colonoscopy given family history of colon cancer Planning for discharge this afternoon (2) Incisional hernia: Plan: multiple small hernias on ct scan with loop of small bowel in one however not incarcerated and no signs of obstruction at site of hernia. KUB 04/06/2021 showed resolution of small bowel distention plan as above (3) Shortness of breath: Plan: secondary to abdominal distention CT chest negative resolved (4) Abdominal distention: Plan: with associated rigidity abdominal ct negative, KUB showed SB distention however resolved after NGT placement normal labs, normal lactic acid and procalcitonin no peritonitis on exam Likely secondary to chronic constipation and when unable to have bowel movement abdomen becomes distended and rigid Plan for bowel regimen as above Admission and Anticipated Discharge Date Admission Date: April 05, 2021 Subjective patient states he is still feeling bloated and abdomen is hard and having pain. had to take Morphine this morning at 6, Toradol at 8. Toradol does not seem to be helping as much passing gas but no bowel movement tolerated regular diet, ate entire tray this morning (eggs, nicole, toast) Feeling full and belching now after eating it breathing has improved in reviewing the MAR patient refused the Miralax starting 04/06/21 evening dose and refused both doses yesterday. Originally refused this morning as he felt full after eating his entire breakfast tray but said he would take it once his stomach settled down. Physical Exam Constitutional: WD/WN, vitals as above + morbidly obese, cooperative and comfortable Respiratory: normal respiratory effort; no respiratory distress, no labored breathing and no retractions Gastrointestinal (Abdomen): Inspection/Auscultation: + abdomen distended, normal bowel sounds, + visible herniation (umbilical and small incisional hernias) and + abdominal surgical scar (midline laparotomy scar); no abdominal wall ecchymosis Percussion/Palpation: + abdomen tender, + guarding (when palpating but no peritonitis) and + abdomen rigid; + abdomen not soft (firm given distention) Skin: no rashes, warm and dry Psychiatric: Orientation: alert and oriented x 3 Results & Data ([facility]) Vital Signs (Past 12 Hours) Vital Signs Temp Pulse Resp BP Pulse Ox 04/08/21 11:14 85 16 97 04/08/21 07:52 74 16 99 04/08/21 07:36 36.6 C 81 19 138/75 99 (1) Incisional hernia Obstruction and gangrene presence: without obstruction or gangrene Qualified Code(s): K43.2 - Incisional hernia without obstruction or gangrene (2) Abdominal pain Abdominal location: unspecified location Qualified Code(s): R10.9 - Unspecified abdominal pain
--- NOTE | 2021-04-08 14:18 | XRay Report ---
KUB HISTORY: eval for constipation/stool burden COMPARISON: KUB 04/06/2021. FINDINGS: The bowel gas pattern is unremarkable. There are no dilated loops of small bowel to suggest an obstruction. No renal calculi. No ureteral calculi. No pneumoperitoneum or pneumatosis. Mildly d ilated gas-filled stomach. Postoperative changes again noted within the proximal left femur. The naso gastric tube has been removed. IMPRESSION: 1. No dilated loops of small bowel to suggest an obstruction. 2. Nasogastric tube has been removed. There is a mildly dilated gas-filled stomach. ACT 112: Negative or not required by law. Electronically signed by: Ariel Pedersen M.D. 04/08/2021 2:17 PM
--- NOTE | 2021-04-12 18:29 | Discharge Summary (DS) ---
DATE OF ADMISSION: 04/05/2021 DATE OF DISCHARGE: 04/08/2021 ADMITTING DIAGNOSES: Small bowel obstruction, abdominal pain. DISCHARGE DIAGNOSES: Small bowel obstruction, abdominal pain. DETAILS OF DISCHARGE SUMMARY: This is a 50-year-old gentleman who was admitted to the hospital for a bdominal pain. The patient had a CT scan diagnosis of small-bowel obstruction and we admitted the pat ient to the hospital for conservative treatment, n.p.o., IV fluid and control of the pain, and later on, the patient passed gas and we started feeding the patient. The patient is doing fine, tolerated t he diet and passed bowel movement. PHYSICAL EXAMINATION: VITAL SIGNS: Temperature is 36.7, respiratory rate 18, heart rate 85, blood pressure 130/71, O2 satu ration 92% on room air. GENERAL: Alert, awake, oriented x3. HEENT: Normal limitation. NEUROLOGIC: Intact. NECK: No JVD. CHEST: Bilateral lung sounds clear. HEART: Normal S1 and S2. No murmur. ABDOMEN: Soft, mild tenderness, no rebound pain, no distention. Bowel sounds positive. EXTREMITIES: No edema. We discharged the patient on 04/08/2021. We gave the patient postop care instruction. I will follow up the patient in 2 weeks. The patient understands and also all the KUB shows no bowel obstruction and the patient's all labs came back with normal white count, so the patient was discharged. Job ID: [id number]
== END 2021-04-08 17:54 | DRG 389 ==
LOC: 3E 09:57 → ED 09:57 → 3E 16:05

== ENCOUNTER 2021-07-31 20:10 | Inpatient (IN) ==
--- NOTE | 2021-07-31 20:41 | Emergency Department Note ---
Impression & Plan Headache, Hypertension, Right sided weakness, Numbness on right side ED Provider Note Provider: Kwabena Tapia MD DATE OF SERVICE: 07/31/2021 CHIEF COMPLAINT: Headache, right-sided numbness and weakness HISTORY OF PRESENT ILLNESS: Patient is a 51-year-old gentleman history of hypertension, COPD, obesity, trigeminal neuralgia, IBS, and abdominal surgeries with abdominal hernias [facility] with report of right-sided weakness/numbness and facial droop beginning early this morning before 10 AM. Patient reports having a headache starting 2 days ago on Sunday morning. Denies any trauma or syncope. Reports the pain started in the back of his head and has moved around and spread since then. Reports worsening over the last 24 hours. This morning noted difficulty chewing and biting his right lip with difficulty with sensation in his right cheek and right hand and leg. Difficult with movement of his right arm and leg reported as well which he states are weak. Patient denies significant worsening chest pain or shortness of breath beyond his baseline COPD. Patient states he has some baseline abdominal discomfort due to prior hernias. States has been on Tylenol #3 for the abdominal pain (last this morning but this not been helping the headache. Patient does report some increased sweating today. No fevers or URI symptoms reported. REVIEW OF SYSTEMS: A total of 10 review of systems was obtained and negative except as stated above in the HPI. PAST MEDICAL HISTORY: As noted above MEDICATIONS: Reviewed medication list from the facility which does not include any anticoagulation or antiplatelet agents. SOCIAL HISTORY: Former smoker, pen[facility]entiary inmate PHYSICAL EXAM: GENERAL: alert and oriented with guards present at bedside with shackles in place Head: normocephalic and atraumatic EYES: No injection or discharge or icterus. Eyes are PERRL. NECK: Trachea midline. Supple without significant posterior tenderness. ENT: Mucous membranes pink and moist. LUNGS: Airway patent. No retractions. Breath sounds clear HEART: Regular rate and rhythm. No chest wall tenderness ABDOMEN: Soft with prior healed surgical incisions without peritonitis. No large tender masses appreciated. SKIN: Acyanotic, warm, and somewhat diaphoretic EXTREMITIES: Without swelling, tenderness or deformity NEUROLOGICAL: Patient with some dysarthria but no aphasia and some right facial droop. Patient with diminished subjective sensation of the right arm and lower leg as well as the right cheek. Patient with diminished strength in the right arm and leg. Barely able to antigravity right arm and leg. Left arm and leg without significant numbness or weakness appreciated on exam. EK bpm normal sinus rhythm. No PVC or PAC. QTc 427. No acute ST segment elevation or depression noted. CONTINUOUS CARDIAC MONITORING: was ordered and showed a heart rate of 70s-90s bpm in normal sinus rhythm Patient's laboratory studies and imaging reviewed. Differential includes Infection, dehydration, metabolic abnormality, hypo/hyperglycemia, electrolyte disturbance, anemia, hypoxia, cardiac sources, intracerebral event, toxicologic, neurologic, as well as other pathologies. IMPRESSION/MEDICAL DECISION MAKING: Significant concern given the patient's presentation for possible PROOF READER event such as possible stroke or intracranial bleed. No trauma history reported. Initial headache that then has worsened seems less likely to be SAH. Significant allergy to IV dye is reported by the patient. Head CT was ordered. He is outside the window for thrombolytics given the onset of right-sided numbness and weakness more than 8 hours ago. Basic labs to be ordered as well to look for any possible infectious cause or other abnormality. Patient reports some abdominal discomfort this is a chronic level and doubt acute intra-abdominal pathology causing his symptoms today. Brasher's palsy was considered but this does not explain numbness and weakness in the right arm or leg. Patient not on anticoagulation or antiplatelet agents per his report. CT the head per radiology did not report any acute intracerebral abnormality. No significant anemia or leukocytosis on lab studies. No severe electrolyte abnormalities signs of renal dysfunction. No transaminitis noted. Negative Covid testing. No troponin elevation and I doubt this represents acute ACS. Lyme IgM is equivocal but will defer any treatment at this time pending further testing /Western blot. Given the facial droop and weakness and numbness on the right side concern for stroke would still be present. Does not seem consistent with trigeminal neuralgia. Distribution of symptoms regarding the facial and head pain are somewhat inconsistent with a clear singular localization. Failed swallow testing given the facial droop will defer any oral intake at this time. Will bring into the hospital for further evaluation. Limitations to angiograms at this time due to his severe allergy to IV dye which he reports has in the past required overnight premedication for use. hospitalist contacted. DIAGNOSIS: Headache, right-sided weakness and numbness DISPOSITION: Hospitalist will evaluate Patient was agreeable with this plan. Past Med/Surg History Medical History (Updated 12/19/21 @ 22:35 by Kwabena Tapia M.D.) Cholelithiasis without obstruction COPD (chronic obstructive pulmonary disease) Depression Hyperlipidemia Hypertension Incisional hernia Morbid obesity Surgical History History of major abdominal surgery Social History Smoking Status: Former smoker Hx Alcohol Use: No Hx Substance Use: No Preferred Language: Georgian Communication Ability: Effective Dividend Clerk Required: No Beliefs That Will Affect Care: None marital status: Single Current Living Situation: Other Current Living Situation Comment: Inmate at [facility] Feels Safe at Home: Yes Assistive Devices: Cane Allergies Allergies Allergy/AdvReac Type Severity Reaction Status Date / Time Iodinated Contrast Media Allergy Swelling Verified 07/31/21 20:36 of Lip/Tongue/Throat Home Meds Home Medications Medication Instructions Recorded Confirmed levalbuterol tartrate 45 2 inh INHALATION QID PRN 10/29/20 07/31/21 mcg/actuation aerosol inhaler (Xopenex HFA) mirtazapine 45 mg tablet 45 mg PO HS 10/29/20 07/31/21 pantoprazole 40 mg tablet,delayed 40 mg PO DAILY 10/29/20 07/31/21 release rosuvastatin 20 mg tablet 20 mg PO HS tab 10/29/20 07/31/21 simethicone 80 mg chewable tablet 80 mg PO BID tab 10/29/20 07/31/21 (Mi-Acid Gas Relief (simethicone)) oxcarbazepine 600 mg tablet 1,200 mg PO BID 04/04/21 07/31/21 acetaminophen 300 mg-codeine 30 mg 2 tab PO BID 07/31/21 07/31/21 tablet ammonium lactate 12 % topical cream 1 applic TOPICAL BID 07/31/21 07/31/21 dicyclomine 20 mg tablet 40 mg PO BID 07/31/21 07/31/21 fluticasone furoate 200 1 inh INHALATION DAILY 07/31/21 07/31/21 mcg-vilanterol 25 mcg/dose inhalation powder (Breo Ellipta) furosemide 20 mg tablet 20 mg PO DAILY PRN 07/31/21 07/31/21 magnesium hydroxide 400 mg/5 mL 30 ml PO DAILY PRN 07/31/21 07/31/21 oral suspension (Milk of Magnesia) umeclidinium 62.5 mcg/actuation 1 inh INHALATION DAILY 07/31/21 07/31/21 blister powder for inhalation (Incruse Ellipta) Results & Data (ED) Vital Signs Vital Signs - 24 hr 07/31/21 20:15 07/31/21 20:52 07/31/21 21:00 Temperature 37.1 C Temperature Source Oral Pulse Rate 84 79 83 Pulse Rate from SpO2 Sensor 76 82 Respiratory Rate 18 22 16 Respiratory Effort / Characteristics Non-Labored Spontaneous Respiratory Depth Normal Blood Pressure 154/98 H 140/81 Blood Pressure Mean 116 100 Pulse Oximetry 98 94 95 Oxygen Delivery Method Room Air Room Air Room Air Sepsis Recent Fever Within 48 Hours No Sepsis New/Unexplained Change in Mental Status No Sepsis Action Taken by Nursing No Action Required 07/31/21 21:10 07/31/21 21:20 07/31/21 21:30 Temperature Temperature Source Pulse Rate 84 87 83 Pulse Rate from SpO2 Sensor 85 87 85 Respiratory Rate 16 18 16 Respiratory Effort / Characteristics Respiratory Depth Blood Pressure Blood Pressure Mean Pulse Oximetry 93 93 93 Oxygen Delivery Method Room Air Room Air Room Air Sepsis Recent Fever Within 48 Hours Sepsis New/Unexplained Change in Mental Status Sepsis Action Taken by Nursing 07/31/21 21:40 07/31/21 21:50 07/31/21 22:00 Temperature Temperature Source Pulse Rate 89 87 82 Pulse Rate from SpO2 Sensor 88 88 82 Respiratory Rate 17 22 18 Respiratory Effort / Characteristics Respiratory Depth Blood Pressure Blood Pressure Mean Pulse Oximetry 94 96 93 Oxygen Delivery Method Room Air Room Air Room Air Sepsis Recent Fever Within 48 Hours Sepsis New/Unexplained Change in Mental Status Sepsis Action Taken by Nursing 07/31/21 22:10 07/31/21 22:20 Temperature Temperature Source Pulse Rate Pulse Rate from SpO2 Sensor 84 93 H Respiratory Rate 21 19 Respiratory Effort / Characteristics Respiratory Depth Blood Pressure Blood Pressure Mean Pulse Oximetry 94 95 Oxygen Delivery Method Room Air Room Air Sepsis Recent Fever Within 48 Hours Sepsis New/Unexplained Change in Mental Status Sepsis Action Taken by Nursing Laboratory Data Result diagrams: 07/31/21 21:07 07/31/21 21:07 Lab Results 07/31/21 07/31/21 07/31/21 Range/Units 20:59 21:07 21:07 WBC 5.87 (4.8-10.8) K/uL RBC 4.72 (4.7-6.1) M/uL Hgb 14.1 (14.0-18.0) g/dL Hct 42.2 (42-52) % MCV 89.4 (80-100) fL MCH 29.9 (25-34) pg MCHC 33.4 (32-36) g/dL RDW Std Deviation 41.9 (36.4-46.3) fL RDW Coeff of Jazzy 12.9 (11.5-14.5) % Plt Count 240 (130-400) K/uL MPV 10.2 (7.4-10.4) fL Immature Gran % (Auto) 0.3 % Neut % (Auto) 65.7 % Lymph % (Auto) 21.6 % [place] % (Auto) 10.2 % Eos % (Auto) 1.5 % Baso % (Auto) 0.7 % Neut # (Auto) 3.85 (1.4-6.5) K/uL Lymph # (Auto) 1.27 (1.2-3.4) K/uL [place] # (Auto) 0.60 H (0.11-0.59) K/uL Eos # (Auto) 0.09 (0-0.5) K/uL Baso # (Auto) 0.04 (0-0.2) K/uL Immature Gran # (Auto) 0.02 (0.00-0.02) K/uL PT (9.0-12.0) Seconds INR (0.9-1.1) APTT (21.0-31.0) Seconds PTT Ratio Sodium (136-145) mmol/L Potassium (3.5-5.1) mmol/L Chloride (98-107) mmol/L Carbon Dioxide (21-32) mmol/L Anion Gap (3-11) BUN (7-18) mg/dl Creatinine (0.6-1.4) mg/dl Est Cr Clr Drug Dosing ml/min Est GFR ( Amer) ml/min Est GFR (Non-Af Amer) ml/min BUN/Creatinine Ratio (10-20) Glucose (70-99) mg/dl Calcium (8.5-10.1) mg/dl Magnesium (1.8-2.4) mg/dl Total Bilirubin (0.2-1) mg/dl AST (15-37) U/L ALT (12-78) Alkaline Phosphatase (45-117) U/L Troponin I (0-0.045) ng/ml Total Protein (6.4-8.2) gm/dl Albumin (3.4-5.0) gm/dl Globulin (2.5-4.0) gm/dl Albumin/Globulin Ratio (0.9-2) Lyme Disease IgG Ab Negative (Negative) Lyme Disease IgM Ab Equivocal A (Negative) SARS-CoV-2, RNA, NAAT NEGATIVE (NEGATIVE) 07/31/21 07/31/21 Range/Units 21:07 21:07 WBC (4.8-10.8) K/uL RBC (4.7-6.1) M/uL Hgb (14.0-18.0) g/dL Hct (42-52) % MCV (80-100) fL MCH (25-34) pg MCHC (32-36) g/dL RDW Std Deviation (36.4-46.3) fL RDW Coeff of Jazzy (11.5-14.5) % Plt Count (130-400) K/uL MPV (7.4-10.4) fL Immature Gran % (Auto) % Neut % (Auto) % Lymph % (Auto) % [place] % (Auto) % Eos % (Auto) % Baso % (Auto) % Neut # (Auto) (1.4-6.5) K/uL Lymph # (Auto) (1.2-3.4) K/uL [place] # (Auto) (0.11-0.59) K/uL Eos # (Auto) (0-0.5) K/uL Baso # (Auto) (0-0.2) K/uL Immature Gran # (Auto) (0.00-0.02) K/uL PT 9.9 (9.0-12.0) Seconds INR 1.0 (0.9-1.1) APTT 25.4 (21.0-31.0) Seconds PTT Ratio 1.0 Sodium 143 (136-145) mmol/L Potassium 4.0 (3.5-5.1) mmol/L Chloride 111 H (98-107) mmol/L Carbon Dioxide 24 (21-32) mmol/L Anion Gap 8.0 (3-11) BUN 14 (7-18) mg/dl Creatinine 0.72 (0.6-1.4) mg/dl Est Cr Clr Drug Dosing 180.6 ml/min Est GFR ( Amer) 125.2 ml/min Est GFR (Non-Af Amer) 108.0 ml/min BUN/Creatinine Ratio 19.0 (10-20) Glucose 135 H (70-99) mg/dl Calcium 8.7 (8.5-10.1) mg/dl Magnesium 1.9 (1.8-2.4) mg/dl Total Bilirubin 0.3 (0.2-1) mg/dl AST 24 (15-37) U/L ALT 39 (12-78) Alkaline Phosphatase 85 (45-117) U/L Troponin I < 0.015 (0-0.045) ng/ml Total Protein 7.0 (6.4-8.2) gm/dl Albumin 3.5 (3.4-5.0) gm/dl Globulin 3.5 (2.5-4.0) gm/dl Albumin/Globulin Ratio 1.0 (0.9-2) Lyme Disease IgG Ab (Negative) Lyme Disease IgM Ab (Negative) SARS-CoV-2, RNA, NAAT (NEGATIVE) Administered Medications Discontinued Medications Acetaminophen (Ofirmev) 1,000 mg in 100 mls @ 400 mls/hr IV NOW STA Stop: 07/31/21 22:03 Last Admin: 07/31/21 22:39 Dose: 400 mls/hr Documented by: [id number] Imaging Data Radiologist's Impression: Chest X-Ray 07/31/21 20:28 XR chest 1V portable CLINICAL HISTORY: Stroke Like Symptoms. Evaluate cardiopulmonary status COMPARISON STUDY: 04/04/2021 TECHNIQUE: 1 view of the chest FINDINGS: Single frontal view of the chest demonstrates the cardiomediastinal silhouette to be within normal limits. The lungs are clear of alveolar opacities. There is no evidence for pleural effusion. There is no evidence for vascular congestion. There is no acute osseous pathology. IMPRESSION: No acute cardiopulmonary disease. ACT 112: Negative or not required by law. Electronically signed by: North Quezada M.D. 07/31/2021 9:[address] 07/31/21 20:28 CT head/brain wo con CLINICAL HISTORY: Stroke Like Symptoms, right-sided weak/numb COMPARISON STUDY: No previous studies for comparison. CT DOSE: 1041.13 mGy.cm TECHNIQUE: Standard CT of the Brain was performed without IV contrast. A dose lowering technique was utilized adhering to the principles of ALARA. FINDINGS: Extraaxial space: There is no evidence for subdural hematoma. There are no e xtra-axial fluid collections. Ventricles and cisterns: The ventricles are normal in size and configuration. There is no evidence for midline shift or mass effect. Parenchyma: There is no subarachnoid or intraparenchymal hemorrhage. There is no evidence for an acute infarct or cerebral edema. There is homogeneous attenuation of the brain parenchyma. There are no gross mass lesions. Osseous structures: There is no evidence for an acute fracture. There is mild mucosal thickening involving the right maxillary antrum. The remaining visualized paranasal sinuses are clear. No fluid levels are seen. The mastoid air cells are clear bilaterally. Soft tissues: There is no evidence for focal soft tissue swelling. IMPRESSION: No acute intracerebral pathology. ACT 112: Negative or not required by law. Electronically signed by: North Quezada M.D. 07/31/2021 8:55 PM Discharge Plan Visit Data Chief Complaint: Stroke/CVA Symptoms Stated Complaint: STROKE ED Provider: Kwabena Tapia Discharge Problem: Headache, Hypertension, Right sided weakness, Numbness on right side Patient Disposition: Being Evaluated by Hospitalist Forms Stand Alone Forms: [facility] Prescriptions Prescriptions: No Action pantoprazole 40 mg tablet,delayed release (DR/EC) 40 mg PO DAILY RF: 0 rosuvastatin 20 mg tablet 20 mg PO HS RF: 0 simethicone [Mi-Acid Gas Relief(simethicon)] 80 mg tablet,chewable 80 mg PO BID RF: 0 mirtazapine 45 mg tablet 45 mg PO HS RF: 0 levalbuterol tartrate [Xopenex HFA] 45 mcg/actuation HFA aerosol inhaler 2 inh inhalation QID PRN (Reason: Shortness Of Breath) RF: 0 oxcarbazepine 600 mg Tablet 1,200 mg PO BID RF: 0 acetaminophen-codeine 300-30 mg Tablet 2 tab PO BID RF: 0 magnesium hydroxide [Milk of Magnesia] 400 mg/5 mL Suspension 30 ml PO DAILY PRN (Reason: Constipation) RF: 0 dicyclomine 20 mg Tablet 40 mg PO BID RF: 0 ammonium lactate 12 % Cream 1 applic TOPICAL BID RF: 0 furosemide 20 mg Tablet 20 mg PO DAILY PRN (Reason: Edema) RF: 0 Incruse Ellipta 62.5 mcg/actuation Blister With Device 1 inh INHALATION DAILY RF: 0 Breo Ellipta 200-25 mcg/dose Blister With Device 1 inh INHALATION DAILY RF: 0 Referrals Referrals: Giselle MCKEON [Primary Care Provider] - Discharge Problem: Headache Qualifiers: Headache type: unspecified Headache chronicity pattern: acute headache Intractability: intractable Qualified Code(s): R51.9 - Headache, unspecified
--- NOTE | 2021-07-31 20:56 | CT Scan Report ---
CT head/brain wo con CLINICAL HISTORY: Stroke Like Symptoms, right-sided weak/numb COMPARISON STUDY: No previous studies for comparison. CT DOSE: 1041.13 mGy.cm TECHNIQUE: Standard CT of the Brain was performed without IV contrast. A dose lowering technique was utilized adhering to the principles of ALARA. FINDINGS: Extraaxial space: There is no evidence for subdural hematoma. There are no extra-axial fluid collecti ons. Ventricles and cisterns: The ventricles are normal in size and configuration. There is no evidence f or midline shift or mass effect. Parenchyma: There is no subarachnoid or intraparenchymal hemorrhage. There is no evidence for an acu te infarct or cerebral edema. There is homogeneous attenuation of the brain parenchyma. There are no gross mass lesions. Osseous structures: There is no evidence for an acute fracture. There is mild mucosal thickening invo lving the right maxillary antrum. The remaining visualized paranasal sinuses are clear. No fluid leve ls are seen. The mastoid air cells are clear bilaterally. Soft tissues: There is no evidence for focal soft tissue swelling. IMPRESSION: No acute intracerebral pathology. ACT 112: Negative or not required by law. Electronically signed by: North Quezada M.D. 07/31/2021 8:55 PM
--- NOTE | 2021-07-31 21:04 | XRay Report ---
XR chest 1V portable CLINICAL HISTORY: Stroke Like Symptoms. Evaluate cardiopulmonary status COMPARISON STUDY: 04/04/2021 TECHNIQUE: 1 view of the chest FINDINGS: Single frontal view of the chest demonstrates the cardiomediastinal silhouette to be within normal li mits. The lungs are clear of alveolar opacities. There is no evidence for pleural effusion. There is no evidence for vascular congestion. There is no acute osseous pathology. IMPRESSION: No acute cardiopulmonary disease. ACT 112: Negative or not required by law. Electronically signed by: North Quezada M.D. 07/31/2021 9:03 PM
[2021-07-31 21:24] LABS: Basophils # (auto) 0.04 K/uL (0-0.2); Basophils % (auto) 0.7 %; Eosinophils # (auto) 0.09 K/uL (0-0.5); Eosinophils % (auto) 1.5 %; Hematocrit (blood only) 42.2 % (42-52); Hemoglobin 14.1 g/dL (14.0-18.0); Immature Granulocytes # (auto) 0.02 K/uL (0.00-0.02); Immature Granulocytes % (auto) 0.3 %; Lymphocytes # (auto) 1.27 K/uL (1.2-3.4); Lymphocytes % (auto) 21.6 %; Mean Corpuscular Hemoglobin 29.9 pg (25-34); Mean Corpuscular Hgb Conc 33.4 g/dL (32-36); Mean Corpuscular Volume 89.4 fL (80-100); Mean Platelet Volume 10.2 fL (7.4-10.4); Monocytes % (auto) 10.2 %; Neutrophils # (auto) 3.85 K/uL (1.4-6.5); Neutrophils % (auto) 65.7 %; Platelet Count 240 K/uL (130-400); RDW Coefficient of Variation 12.9 % (11.5-14.5); RDW Standard Deviation 41.9 fL (36.4-46.3); Red Blood Count 4.72 M/uL (4.7-6.1); White Blood Count 5.87 K/uL (4.8-10.8)
[2021-07-31 21:27] LABS: Partial Thromboplastin Time 25.4 Seconds (21.0-31.0); Prothrombin Time 9.9 Seconds (9.0-12.0)
[2021-07-31 21:34] LABS: Alanine Aminotransferase 39 (12-78); Albumin Level 3.5 gm/dl (3.4-5.0); Aspartate Aminotransferase 24 U/L (15-37); Blood Urea Nitrogen 14 mg/dl (7-18); Calcium 8.7 mg/dl (8.5-10.1); Carbon Dioxide 24 mmol/L (21-32); Chloride 111 mmol/L (98-107); Creatinine Clr Calc Pharmacy 180.6 ml/min; Est GFR (African American) 125.2 ml/min; Glucose 135 mg/dl (70-99); Magnesium 1.9 mg/dl (1.8-2.4); Sodium 143 mmol/L (136-145)
[2021-07-31 21:39] LABS: Alkaline Phosphatase 85 U/L (45-117); Bilirubin,Total 0.3 mg/dl (0.2-1); Globulin 3.5 gm/dl (2.5-4.0); Troponin I < 0.015 ng/ml (0-0.045)
[2021-07-31] MEDS ORDERED: ACETAMINOPHEN 1,000 MG/100 ML VIAL IV STA (21:49)
[2021-07-31 22:08] LABS: Lyme Ab IgG w/WB Rflx Negative (Negative)
[2021-07-31 22:35] LABS: Lyme Ab IgM w/WB Rflx Equivocal (Negative)
[2021-07-31] MEDS ORDERED: KETOROLAC TROMETHAMINE 15 MG/ML VIAL IV STA (23:11)
--- NOTE | 2021-07-31 23:14 | History & Physical Report ---
Date of Service July 31, 2021 Assessment & Plan (1) Stroke-like symptoms: Plan: Strokelike symptoms/right-sided headache/right-sided numbness- Symptoms ongoing for [address] head negative Unable to perform CT angiography due to history of severe dye reaction Order carotid Dopplers Order MRI brain without contrast (2) Headache: Plan: Symptoms extend from cervical area toward frontal on the right side, and extending to V1, V2, and V3 distributions Differential includes but not limited to: Preherpetic neuralgia, muscle spasm, cervical radiculopathy involving C1 and C2, (3) Hyperlipidemia: Plan: Continue rosuvastatin 20 mg daily Check a fasting lipid panel (4) COPD (chronic obstructive pulmonary disease): Plan: Continue usual inhalers (5) Abdominal pain: Plan: Chronic abdominal pain/incisional hernias/history of major abdominal surgery- Reports upcoming evaluation with [facility] surgery [facility]. No acute change today Continue dicyclomine History of abdominal wall mesh from previous surgeries (6) Incisional hernia: Plan: See above (7) Facial droop: Plan: See above (8) Numbness on right side: Plan: See above (9) Depression: Plan: Continue oxcarbazepine, mirtazapine History of Present Illness Chief Complaint: The patient presents to the emergency department with complaint of right-sided headache 2 days ago, chronic neck pain, with reported more recent right sided facial numbness along V1, V2 and V3 distribution this morning. He also reports facial droop this morning, and reported decreased sensation in right hand and leg Primary Care Provider: LINDA Desai The patient is a 51-year-old male with a past medical history including depression, hyperlipidemia, hypertension, COPD, chronic abdominal pain, incisional hernia, previous major abdominal surgeries, morbid obesity, cholelithiasis without obstruction and insomnia. Patient presents with symptoms as noted above. Allergies Allergy/AdvReac Type Severity Reaction Status Date / Time Iodinated Contrast Media Allergy Swelling Verified 07/31/21 20:36 of Lip/Tongue/Throat Home Medications Medication Instructions Recorded Confirmed Type levalbuterol tartrate 45 2 inh INHALATION QID PRN 10/29/20 07/31/21 History mcg/actuation aerosol inhaler (Xopenex HFA) mirtazapine 45 mg tablet 45 mg PO HS 10/29/20 07/31/21 History pantoprazole 40 mg tablet,delayed 40 mg PO DAILY 10/29/20 07/31/21 History release rosuvastatin 20 mg tablet 20 mg PO HS tab 10/29/20 07/31/21 History simethicone 80 mg chewable tablet 80 mg PO BID tab 10/29/20 07/31/21 History (Mi-Acid Gas Relief (simethicone)) oxcarbazepine 600 mg tablet 1,200 mg PO BID 04/04/21 07/31/21 History acetaminophen 300 mg-codeine 30 mg 2 tab PO BID 07/31/21 07/31/21 History tablet ammonium lactate 12 % topical cream 1 applic TOPICAL BID 07/31/21 07/31/21 History dicyclomine 20 mg tablet 40 mg PO BID 07/31/21 07/31/21 History fluticasone furoate 200 1 inh INHALATION DAILY 07/31/21 07/31/21 History mcg-vilanterol 25 mcg/dose inhalation powder (Breo Ellipta) furosemide 20 mg tablet 20 mg PO DAILY PRN 07/31/21 07/31/21 History magnesium hydroxide 400 mg/5 mL 30 ml PO DAILY PRN 07/31/21 07/31/21 History oral suspension (Milk of Magnesia) umeclidinium 62.5 mcg/actuation 1 inh INHALATION DAILY 07/31/21 07/31/21 History blister powder for inhalation (Incruse Ellipta) Past Med/Surg History Medical History (Updated 08/01/21 @ 03:40 by Robbie Valenzuela MD) Cholelithiasis without obstruction COPD (chronic obstructive pulmonary disease) Depression Hyperlipidemia Hypertension Incisional hernia Morbid obesity Surgical History History of major abdominal surgery Social History Smoking Status: Former smoker Hx Alcohol Use: No Hx Substance Use: No Preferred Language: Yi Communication Ability: Effective Machine Ii Trimmer Required: No Beliefs That Will Affect Care: None marital status: Single Current Living Situation: Other Current Living Situation Comment: Inmate at [facility] Feels Safe at Home: Yes Assistive Devices: Cane Review of Systems Review of Systems: The patient denies chest pain, palpitations, shortness of breath, dyspnea on exertion, cough, lower extremity swelling, sore throat, fevers, chills, sweats, nausea, vomiting, diarrhea , constipation, blood in urine or stool, dysuria, urinary frequency or urgency, memory loss, loss of consciousness, rash, abnormal bruising or bleeding, imbalance, generalized arthralgias or myalgias, or night sweats. The review of systems is otherwise negative other than for that already noted above, and at least 10 systems have been reviewed. Physical Exam Physical Exam: The patient is awake, alert and oriented 3, well developed and well nourished, normocephalic and atraumatic, lying in bed and in no acute distress. HEENT--PERRL, EOMI, mucous membranes and oropharynx normal. Right facial droop Neck--supple. No JVD. No bruits. Thyroid normal, trachea midline, no adenopathy. Heart--normal S1 and S2. No murmurs, rubs or gallops. Lungs--clear bilaterally, no respiratory distress, no accessory muscle use. Abdomen--normal bowel sounds and soft. Nontender. Nondistended. Morbidly obese Extremities--no cyanosis or clubbing. No edema. Dermatologic--normal skin turgor, normal color, no abnormal lymph nodes, no rash. Neurologic--cranial nerves II through XII grossly intact, except for right fa cial droop Rheumatologic--normal range of motion, but moves slowly Psychiatric--normal affect. Results & Data Results & Data ([facility]) Vital Signs (Past 12 Hours) Vital Signs Temp Pulse Resp BP Pulse Ox 07/31/21 22:20 19 95 07/31/21 22:10 21 94 07/31/21 22:00 82 18 93 07/31/21 21:50 87 22 96 07/31/21 21:40 89 17 94 07/31/21 21:30 83 16 93 07/31/21 21:20 87 18 93 07/31/21 21:10 84 16 93 07/31/21 21:00 83 16 140/81 95 07/31/21 20:52 79 22 94 07/31/21 20:15 37.1 C 84 18 154/98 H 98 Laboratory Results Laboratory Results WBC 5.87 K/uL (4.8-10.8) 07/31/21 21:07 RBC 4.72 M/uL (4.7-6.1) 07/31/21 21:07 Hgb 14.1 g/dL (14.0-18.0) 07/31/21 21:07 Hct 42.2 % (42-52) 07/31/21 21:07 MCV 89.4 fL (80-100) 07/31/21 21:07 MCH 29.9 pg (25-34) 07/31/21 21:07 MCHC 33.4 g/dL (32-36) 07/31/21 21:07 RDW Std Deviation 41.9 fL (36.4-46.3) 07/31/21 21:07 RDW Coeff of Jazzy 12.9 % (11.5-14.5) 07/31/21 21:07 Plt Count 240 K/uL (130-400) 07/31/21 21:07 MPV 10.2 fL (7.4-10.4) 07/31/21 21:07 Immature Gran % (Auto) 0.3 % 07/31/21 21:07 Neut % (Auto) 65.7 % 07/31/21 21:07 Lymph % (Auto) 21.6 % 07/31/21 21:07 [place] % (Auto) 10.2 % 07/31/21 21:07 Eos % (Auto) 1.5 % 07/31/21 21:07 Baso % (Auto) 0.7 % 07/31/21 21:07 Neut # (Auto) 3.85 K/uL (1.4-6.5) 07/31/21 21:07 Lymph # (Auto) 1.27 K/uL (1.2-3.4) 07/31/21 21:07 [place] # (Auto) 0.60 K/uL (0.11-0.59) H 07/31/21 21:07 Eos # (Auto) 0.09 K/uL (0-0.5) 07/31/21 21:07 Baso # (Auto) 0.04 K/uL (0-0.2) 07/31/21 21:07 Immature Gran # (Auto) 0.02 K/uL (0.00-0.02) 07/31/21 21:07 PT 9.9 Seconds (9.0-12.0) 07/31/21 21:07 INR 1.0 (0.9-1.1) 07/31/21 21:07 APTT 25.4 Seconds (21.0-31.0) 07/31/21 21:07 PTT Ratio 1.0 07/31/21 21:07 Sodium 143 mmol/L (136-145) 07/31/21 21:07 Potassium 4.0 mmol/L (3.5-5.1) 07/31/21 21:07 Chloride 111 mmol/L (98-107) H 07/31/21 21:07 Carbon Dioxide 24 mmol/L (21-32) 07/31/21 21:07 Anion Gap 8.0 (3-11) 07/31/21 21:07 BUN 14 mg/dl (7-18) 07/31/21 21:07 Creatinine 0.72 mg/dl (0.6-1.4) 07/31/21 21:07 Est Cr Clr Drug Dosing 180.6 ml/min 07/31/21 21:07 Est GFR ( Amer) 125.2 ml/min 07/31/21 21:07 Est GFR (Non-Af Amer) 108.0 ml/min 07/31/21 21:07 BUN/Creatinine Ratio 19.0 (10-20) 07/31/21 21:07 Glucose 135 mg/dl (70-99) H 07/31/21 21:07 Calcium 8.7 mg/dl (8.5-10.1) 07/31/21 21:07 Magnesium 1.9 mg/dl (1.8-2.4) 07/31/21 21:07 Total Bilirubin 0.3 mg/dl (0.2-1) 07/31/21 21:07 AST 24 U/L (15-37) 07/31/21 21:07 ALT 39 (12-78) 07/31/21 21:07 Alkaline Phosphatase 85 U/L (45-117) 07/31/21 21:07 Troponin I < 0.015 ng/ml (0-0.045) 07/31/21 21:07 Total Protein 7.0 gm/dl (6.4-8.2) 07/31/21 21:07 Albumin 3.5 gm/dl (3.4-5.0) 07/31/21 21:07 Globulin 3.5 gm/dl (2.5-4.0) 07/31/21 21:07 Albumin/Globulin Ratio 1.0 (0.9-2) 07/31/21 21:07 Lyme Disease IgG Ab Negative (Negative) 07/31/21 21:07 Lyme Disease IgM Ab Equivocal (Negative) A 07/31/21 21:07 SARS-CoV-2, RNA, NAAT NEGATIVE (NEGATIVE) 07/31/21 20:59 Impressions Chest X-Ray 07/31/21 20:28 XR chest 1V portable CLINICAL HISTORY: Stroke Like Symptoms. Evaluate cardiopulmonary status COMPARISON STUDY: 04/04/2021 TECHNIQUE: 1 view of the chest FINDINGS: Single frontal view of the chest demonstrates the cardiomediastinal silhouette to be within normal limits. The lungs are clear of alveolar opacities. There is no evidence for pleural effusion. There is no evidence for vascular congestion. There is no acute osseous pathology. IMPRESSION: No acute cardiopulmonary disease. ACT 112: Negative or not required by law. Electronically signed by: North Quezada M.D. 07/31/2021 9:[address] 07/31/21 20:28 CT head/brain wo con CLINICAL HISTORY: Stroke Like Symptoms, right-sided weak/numb COMPARISON STUDY: No previous studies for comparison. CT DOSE: 1041.13 mGy.cm TECHNIQUE: Standard CT of the Brain was performed without IV contrast. A dose lowering technique was utilized adhering to the principles of ALARA. FINDINGS: Extraaxial space: There is no evidence for subdural hematoma. There are no extra-axial fluid collections. Ventricles and cisterns: The ventricles are normal in size and configuration. There is no evidence for midline shift or mass effect. Parenchyma: There is no subarachnoid or intraparenchymal hemorrhage. There is no evidence for an acute infarct or cerebral edema. There is homogeneous attenuation of the brain parenchyma. There are no gross mass lesions. Osseous structures: There is no evidence for an acute fracture. There is mild mucosal thickening involving the right maxillary antrum. The remaining visualized paranasal sinuses are clear. No fluid levels are seen. The mastoid air cells are clear bilaterally. Soft tissues: There is no evidence for focal soft tissue swelling. IMPRESSION: No acute intracerebral pathology. ACT 112: Negative or not required by law. Electronically signed by: North Quezada M.D. 07/31/2021 8:55 PM Code Status & VTE Plan Code Status Full code VTE Prophylaxis Plan VTE Prophylaxis will be ordered: Yes PG Care Time/CCT Total # of Minutes Spent Total Time Spent with Patient: Total time spent is greater than 50% in coordination of care (as documented) at patient's floor/unit and/or counseling patient: Coding Level of Care Code INT OBSERVATION CARE 70M LVL 3 Diagnoses Stroke-like symptoms R29.90 Headache R51.9 Headache chronicity pattern: acute headache Headache type: unspecified Intractability: intractable Hyperlipidemia E78.5 COPD (chronic obstructive pulmonary disease) J44.9 Incisional hernia K43.2 Obstruction and gangrene presence: without obstruction or gangrene Abdominal pain R10.9 Abdominal location: unspecified location Facial droop R29.810 Numbness on right side R20.0 Depression F32.9 (1) Headache Headache chronicity pattern: acute headache Headache type: unspecified Intractability: intractable Qualified Code(s): R51.9 - Headache, unspecified (2) Incisional hernia Obstruction and gangrene presence: without obstruction or gangrene Qualified Code(s): K43.2 - Incisional hernia without obstruction or gangrene (3) Abdominal pain Abdominal location: unspecified location Qualified Code(s): R10.9 - Unspecified abdominal pain
[2021-08-01] MEDS ORDERED: MAGNESIUM HYDROXIDE SUSP 30 ML UDC PO PRN (01:06)
[2021-08-01] MEDS ORDERED: ONDANSETRON INJ 2 MG/ML 2 ML VIAL IV PRN (01:06)
[2021-08-01] MEDS ORDERED: LEVALBUTEROL TARTRATE 15 GM HFA.AER.AD INH PRN (01:06)
[2021-08-01] MEDS ORDERED: PHARMACIST DISCHARGE MED REC CONSULT PRN (01:06)
[2021-08-01] MEDS: OXcarbazepine 150 MG TABLET PO SCH ×3 (02:44→21:27)
[2021-08-01] MEDS ORDERED: ACETAMINOPHEN W/CODEINE #3 1 TAB ONE (03:16)
[2021-08-01] MEDS: ACETAMINOPHEN W/CODEINE #3 1 TAB PO SCH ×3 (03:17→21:23)
[2021-08-01 04:06] LABS: Appearance Urine Clear (Clear); Bilirubin Urine Negative (Negative); Blood Urine Negative (Negative); Color Urine Yellow; Glucose Urine UA Negative (Negative); Ketones Urine Trace (Negative); Leukocyte Esterase Urine Negative (Negative); Nitrite Urine Negative (Negative); Protein Urine Negative (Negative); Specific Gravity Urine 1.032 (1.000-1.030); Urobilinogen Urine Negative (Negative); pH Urine 5.5 (4.5-7.5)
[2021-08-01] MEDS: MoRPHine SULFATE 2 MG/ML CARP IV PRN ×4 (07:31→23:41)
--- NOTE | 2021-08-01 07:56 | Ultrasound Report ---
CAROTID ARTERY ULTRASOUND CLINICAL HISTORY: stroke-like symptoms COMPARISON STUDY: None. TECHNIQUE: Real-time, grayscale, and color Doppler sonography of the carotid and vertebral arteries w as performed. Images were viewed in the transverse and longitudinal planes. FINDINGS: There is mild atherosclerotic plaque. Velocity measurements are listed below. COMMON CAROTID PEAK SYSTOLIC VELOCITY (CM/S): RIGHT 75 LEFT 104 ICA PEAK SYSTOLIC VELOCITY (CM/S): RIGHT 74 LEFT 95 Systolic ratios between the internal to common carotid arteries are normal. Antegrade flow is seen in the vertebral arteries. The external carotid arteries are patent. Blood pressure in the right arm measured 170/119. Blood pressure in the left arm measured 168/95. IMPRESSION: 1. No evidence for a hemodynamically significant stenosis. 2. Elevated blood pressure, as above. ACT 112: Negative or not required by law. Electronically signed by: Serjio Eduardo M.D. 08/01/2021 7:55 AM
--- NOTE | 2021-08-01 08:17 | Magnetic Resonance Report ---
MR brain wo con HISTORY: 51 years-old Male stroke-like symptoms acute strokelike symptoms COMPARISON: Head CT 07/31/2021 TECHNIQUE: Multiplanar multisequence MRI of the brain was obtained without use of IV contrast. FINDINGS: Purse Framer localizer images demonstrate no gross extracranial abnormality. There is no restricted diffusio n to suggest acute or subacute infarct. The midline structures appear unremarkable. Mildly motion deg raded study. No acute intracranial hemorrhage, midline shift, abnormal extra axial collection, hydroc ephalus or intracranial mass. There are a few punctate foci of T2/FLAIR hyperintense foci are noted w ithin the subcortical and periventricular white matter which are likely of no clinical significance. The cerebral venous sinuses and major arterial flow voids appear patent. Mastoid air cells are clear. 1.9 cm polypoid mucosal thickening involves the right maxillary sinus. The skull, orbits and soft ti ssues are unremarkable. IMPRESSION: No acute intracranial abnormality. No acute or subacute infarct. ACT 112: Negative or not required by law. The above report was generated using voice recognition software. It may contain grammatical, syntax o r spelling errors. Electronically signed by: Jagdish Gustafson M.D. 08/01/2021 8:16 AM
[2021-08-01 08:35] LABS: Basophils # (auto) 0.02 K/uL (0-0.2); Basophils % (auto) 0.4 %; Eosinophils # (auto) 0.07 K/uL (0-0.5); Eosinophils % (auto) 1.4 %; Hematocrit (blood only) 39.2 % (42-52); Hemoglobin 13.4 g/dL (14.0-18.0); Immature Granulocytes # (auto) 0.01 K/uL (0.00-0.02); Immature Granulocytes % (auto) 0.2 %; Lymphocytes # (auto) 1.71 K/uL (1.2-3.4); Lymphocytes % (auto) 33.7 %; Mean Corpuscular Hemoglobin 30.8 pg (25-34); Mean Corpuscular Hgb Conc 34.2 g/dL (32-36); Mean Corpuscular Volume 90.1 fL (80-100); Mean Platelet Volume 10.4 fL (7.4-10.4); Monocytes # (auto) 0.55 K/uL (0.11-0.59); Monocytes % (auto) 10.8 %; Neutrophils # (auto) 2.71 K/uL (1.4-6.5); Neutrophils % (auto) 53.5 %; Platelet Count 235 K/uL (130-400); RDW Coefficient of Variation 13.1 % (11.5-14.5); RDW Standard Deviation 42.9 fL (36.4-46.3); Red Blood Count 4.35 M/uL (4.7-6.1); White Blood Count 5.07 K/uL (4.8-10.8)
[2021-08-01 08:59] LABS: Albumin Level 3.5 gm/dl (3.4-5.0); BUN Creatinine Ratio 29.3 (10-20); Calcium 8.2 mg/dl (8.5-10.1); Creatinine Clr Calc Pharmacy 203.2 ml/min; Est GFR (African American) 131.4 ml/min; Est GFR (Non-African American) 113.4 ml/min; Potassium 3.7 mmol/L (3.5-5.1)
[2021-08-01 09:02] LABS: Albumin Globulin Ratio 1.1 (0.9-2); Bilirubin,Total 0.3 mg/dl (0.2-1); Globulin 3.2 gm/dl (2.5-4.0); Total Protein 6.7 gm/dl (6.4-8.2)
[2021-08-01 09:45] LABS: Estimated Average Glucose 123 mg/dl; Hemoglobin A1C 5.9 % (4.5-5.6)
[2021-08-01] MEDS: DICYCLOMINE HCL 20 MG TAB PO SCH ×2 (10:48→21:26)
[2021-08-01] MEDS: UMECLIDINIUM BROMIDE 62.5MCG/BLISTER 7 PUFFS/INHALER INH SCH (10:49)
[2021-08-01] MEDS: SIMETHICONE 80 MG CHEW PO SCH ×2 (10:49→21:27)
[2021-08-01] MEDS: FLUTICASONE/VILANTEROL 200/25MCG 14 PUFFS/INHALER INH SCH (10:50)
[2021-08-01] MEDS: PANTOprazole 40 MG TAB PO SCH (10:50)
[2021-08-01] MEDS: AMMONIUM LACTATE 12% LOTION 225 GM BTL EXT SCH ×2 (10:51→21:32)
--- NOTE | 2021-08-01 14:39 | XCELERA ---
[id number]
[2021-08-01] MEDS ORDERED: methylPREDNISolone 4 MG TAB, 6 DAY TAPER PO SCH (15:00)
--- NOTE | 2021-08-01 15:06 | Hospitalist Progress Note ---
Date of Service August 01, 2021 Assessment & Plan (1) Stroke-like symptoms: Plan: Strokelike symptoms/right-sided headache/right-sided numbness. Headache began on Sunday. Neurologic symptoms began on 07/31. - MRI brain on 08/01 with *no* acute or prior CVA. - Carotid Dopplers on 08/01 without significant stenosis. - Discussed with neurology on 08/01. Peripheral CN VIII. Given equivocal Lyme, will start doxycycline. For complex migraine symptoms, will start Medrol Dosepak. - Continue Toradol PRN (2) Headache: Plan: Symptoms extend from cervical area toward frontal on the right side, and ext ending to V1, V2, and V3 distributions. Differential includes: Herpetic neuralgia, muscle spasm, cervical radiculopathy involving C1 and C2. - As above (3) Hyperlipidemia: Plan: - Continue rosuvastatin 20 mg daily (4) COPD (chronic obstructive pulmonary disease): Plan: No wheezing. - Continue usual inhalers (5) Abdominal pain: Plan: Chronic abdominal pain/incisional hernias/history of major abdominal surgery. [facility]. - No acute change today - Continue dicyclomine (6) Incisional hernia: Plan: See above (7) Depression: Plan: - Continue oxcarbazepine, mirtazapine (8) DVT prophylaxis: Plan: Lovenox 40 mg SQ daily Admission and Anticipated Discharge Date Admission Date: July 31, 2021 Subjective Still with right-sided headache and pins/needles. Reports no fevers/chills, chest pain, shortness of breath, abdominal pain, nausea, or vomiting. Physical Exam Constitutional: WD/WN, vitals as above Eyes: EOM intact bilaterally; no conjunctival abnormality ENMT: external ear and nose normal, oropharynx normal Neck: trachea midline, no thyromegaly normal visual inspection Respiratory: normal respiratory effort, lungs clear to auscultation no respiratory distress Cardiovascular: RRR, no murmur, no edema Gastrointestinal (Abdomen): Inspection/Auscultation: abdomen normal to inspection; abdomen not distended Musculoskeletal: Extremities: + abnormal strength (Weaker on right side) Skin: no rashes, warm and dry Neurologic: moves all extremities and awake Psychiatric: Orientation: alert, oriented to person and cooperative Results & Data Results & Data ([facility]) Vital Signs (Past 12 Hours) Vital Signs Temp Pulse Resp BP BP Pulse Ox 08/01/21 12:02 37.0 C 88 22 150/93 H 93 08/01/21 08:20 36.8 C 85 20 157/88 H 92 PG Care Time/CCT Total # of Minutes Spent Total Time Spent with Patient: Total time spent is greater than 50% in coordination of care (as documented) at patient's floor/unit and/or counseling patient: Coding Level of Care Code 60268 Subseq Hosp Care Lvl 3 Diagnoses Stroke-like symptoms R29.90 Headache R51.9 Headache chronicity pattern: acute headache Headache type: unspecified Intractability: intractable Hyperlipidemia E78.5 COPD (chronic obstructive pulmonary disease) J44.9 Abdominal pain R10.9 Abdominal location: unspecified location Incisional hernia K43.2 Obstruction and gangrene presence: without obstruction or gangrene Depression F32.9 DVT prophylaxis Z29.9 (1) Headache Headache chronicity pattern: acute headache Headache type: unspecified Intractability: intractable Qualified Code(s): R51.9 - Headache, unspecified (2) Abdominal pain Abdominal location: unspecified location Qualified Code(s): R10.9 - Unspecified abdominal pain (3) Incisional hernia Obstruction and gangrene presence: without obstruction or gangrene Qualified Code(s): K43.2 - Incisional hernia without obstruction or gangrene
[2021-08-01] MEDS: KETOROLAC TROMETHAMINE 15 MG/ML VIAL IV PRN (15:21)
[2021-08-01] MEDS: methylPREDNISolone 4 MG TAB PO SCH ×4 (16:56→21:26)
[2021-08-01] MEDS: DOXYCYCLINE HYCLATE 100 MG CAP PO SCH ×2 (16:56→21:24)
[2021-08-01] MEDS: MIRTAZAPINE SOLTAB 15 MG PO SCH (22:42)
[2021-08-01] MEDS: ROSUVASTATIN CALCIUM 20 MG TAB PO SCH (22:42)
[2021-08-02] MEDS: ACETAMINOPHEN 325 MG TAB PO PRN ×2 (05:32→12:41)
[2021-08-02] MEDS: methylPREDNISolone 4 MG TAB PO SCH ×3 (06:13→18:08)
[2021-08-02 07:36] LABS: Basophils # (auto) 0.01 K/uL (0-0.2); Basophils % (auto) 0.1 %; Hematocrit (blood only) 40.6 % (42-52); Hemoglobin 13.7 g/dL (14.0-18.0); Immature Granulocytes # (auto) 0.01 K/uL (0.00-0.02); Immature Granulocytes % (auto) 0.1 %; Lymphocytes # (auto) 0.99 K/uL (1.2-3.4); Lymphocytes % (auto) 14.8 %; Mean Corpuscular Hemoglobin 30.1 pg (25-34); Mean Corpuscular Hgb Conc 33.7 g/dL (32-36); Mean Corpuscular Volume 89.2 fL (80-100); Mean Platelet Volume 10.2 fL (7.4-10.4); Monocytes # (auto) 0.32 K/uL (0.11-0.59); Monocytes % (auto) 4.8 %; Neutrophils # (auto) 5.36 K/uL (1.4-6.5); Neutrophils % (auto) 80.2 %; Platelet Count 244 K/uL (130-400); RDW Coefficient of Variation 12.8 % (11.5-14.5); RDW Standard Deviation 41.5 fL (36.4-46.3); Red Blood Count 4.55 M/uL (4.7-6.1); White Blood Count 6.69 K/uL (4.8-10.8)
[2021-08-02] MEDS: DOXYCYCLINE HYCLATE 100 MG CAP PO SCH ×2 (07:41→20:13)
[2021-08-02] MEDS: FLUTICASONE/VILANTEROL 200/25MCG 14 PUFFS/INHALER INH SCH (07:41)
[2021-08-02] MEDS: PANTOprazole 40 MG TAB PO SCH (07:41)
[2021-08-02] MEDS: UMECLIDINIUM BROMIDE 62.5MCG/BLISTER 7 PUFFS/INHALER INH SCH (07:41)
[2021-08-02] MEDS: AMMONIUM LACTATE 12% LOTION 225 GM BTL EXT SCH ×2 (07:41→20:13)
[2021-08-02] MEDS: OXcarbazepine 150 MG TABLET PO SCH ×2 (08:27→20:14)
[2021-08-02] MEDS: ACETAMINOPHEN W/CODEINE #3 1 TAB PO SCH ×2 (08:27→20:09)
[2021-08-02] MEDS: DICYCLOMINE HCL 20 MG TAB PO SCH ×2 (08:27→20:13)
[2021-08-02] MEDS: SIMETHICONE 80 MG CHEW PO SCH ×2 (08:28→20:14)
[2021-08-02 09:47] LABS: Albumin Level 3.5 gm/dl (3.4-5.0); BUN Creatinine Ratio 29.7 (10-20); Creatinine Clr Calc Pharmacy 205.2 ml/min; Est GFR (African American) 131.4 ml/min; Est GFR (Non-African American) 113.4 ml/min; Potassium 3.9 mmol/L (3.5-5.1)
[2021-08-02 09:49] LABS: Albumin Globulin Ratio 0.9 (0.9-2); Bilirubin,Total 0.5 mg/dl (0.2-1); Globulin 3.7 gm/dl (2.5-4.0); Total Protein 7.2 gm/dl (6.4-8.2)
--- NOTE | 2021-08-02 10:18 | Neurology Consultation ---
Date of Consultation August 02, 2021 Assessment & Plan (1) Complicated migraine: (2) Right sided weakness: (3) Numbness on right side: (4) 7th nerve palsy: (5) Right facial numbness: (6) Ptosis of eyelid, left: This patient is somewhat confusing and complicated neurologically. He has a history consistent with a complicated migraine headache which has been present for 5 days now. He has developed right face, arm, and leg numbness and tingling as well as weakness. He has a peripheral 7th weakness pattern on the right. Unfortunately his weakness pattern in the right arm and leg are inconsistent and I am concerned about embellishment. He has ptosis on the left with no other cranial nerve issue. The tongue seems weak bilaterally. 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 Etiology is not apparent but may be idiopathic. MRI did not show any obvious abnormalities. Lyme IgM busy equivocal and Western blot is pending. Certainly Lyme disease can cause Brasher's palsy and other neurologic issues. He is afebrile and has no elevated white count with no other signs of infection of an active nature. At the worst, he has multiple cranial nerve issues bilaterally with right sided weakness and numbness. An inflammatory condition could cause multiple cranial nerve and other issues. Recommendations: 1. repeat MRI of the brain with without contrast with attention to the brainstem with extra cuts through the brainstem. 2. Consider MRV 3. LP under fluoroscopy to look for infection /inflammation. 4. ESR, CRP, B12, TSH, ALINA 12 profile, RPR 5. Continue with Medrol Dosepak and doxycycline for now and I will follow. overall, I spent a total of 90 minutes with this case including review of records, review of MRI films, direct evaluation the patient at bedside, and discussion of the case with the patient and RN at bedside as well as Dr. Marie including differential diagnosis and treatment options. History of Present Illness Reason for Consultation: Patient is a 51-year-old, I was asked to see at the request of Dr. Marie, for neurologic evaluation regarding Brasher's palsy and other neurologic issues. Requesting Physician: Dr. Marie Attending Physician: Mariusz Marie MD History of Present Illness patient is an inmate at [place] and has a history of depression, dyslipidemia, hypertension, COPD, chronic abdominal pain (post multiple abdominal surgeries ) and sleep issues. Patient was on oxcarbazepine 1200 milligrams twice a day and mirtazapine 45 milligrams a day for his mood issues. Patient tells me that on July 29 , he woke up with a severe headache pain in the right occipital head region radiating up around his head to the right eye. It was a pounding pain with photophobia and sonophobia. Laying down and fjnk-hmf-[id number] medications help but it persisted throughout that day and the . When he woke up on the he still had the headache but noted numbness in his right face (forehead, cheek, and jaw). He felt that the face was weak and he could not hold food or liquid on that side of the mouth and was drooling and speech chewing his Right lip. he was taken to the [facility] then sent to the emergency room. He complained of weakness in the right arm and leg and numbness and tingling in the right arm and leg. At 2014 on the , temperature was 37.1, pulse 80 and regular, respiratory rate 18, blood pressure 154/98, and O2 saturation 98 percent. CBC was unremarkable. IgM line was equivocal and IgG was negative. Chem profile was unremarkable. Chest x-ray showed no cardiopulmonary disease and CT scan of the head showed no abnormalities. Echocardiogram was largely unremarkable. Today CBC and Chem profile were unremarkable. Lyme Western blot for the IgM is pending. He was noted to have trouble over the last 2 days closing his left eye and he is noted to have weakness of his left face of a peripheral nature. He still has a right-sided headache as before. MRI of the brain August 01 was unremarkable with no abnormalities. Allergies Allergy/AdvReac Type Severity Reaction Status Date / Time Iodinated Contrast Media Allergy Swelling Verified 07/31/21 20:36 of Lip/Tongue/Throat Home Medications Medication Instructions Recorded Confirmed Type levalbuterol tartrate 45 2 inh INHALATION QID PRN 10/29/20 07/31/21 History mcg/actuation aerosol inhaler (Xopenex HFA) mirtazapine 45 mg tablet 45 mg PO HS 10/29/20 07/31/21 History pantoprazole 40 mg tablet,delayed 40 mg PO DAILY 10/29/20 07/31/21 History release rosuvastatin 20 mg tablet 20 mg PO HS tab 10/29/20 07/31/21 History simethicone 80 mg chewable tablet 80 mg PO BID tab 10/29/20 07/31/21 History (Mi-Acid Gas Relief (simethicone)) oxcarbazepine 600 mg tablet 1,200 mg PO BID 04/04/21 07/31/21 History acetaminophen 300 mg-codeine 30 mg 2 tab PO BID 07/31/21 07/31/21 History tablet ammonium lactate 12 % topical cream 1 applic TOPICAL BID 07/31/21 07/31/21 History dicyclomine 20 mg tablet 40 mg PO BID 07/31/21 07/31/21 History fluticasone furoate 200 1 inh INHALATION DAILY 07/31/21 07/31/21 History mcg-vilanterol 25 mcg/dose inhalation powder (Breo Ellipta) furosemide 20 mg tablet 20 mg PO DAILY PRN 07/31/21 07/31/21 History magnesium hydroxide 400 mg/5 mL 30 ml PO DAILY PRN 07/31/21 07/31/21 History oral suspension (Milk of Magnesia) umeclidinium 62.5 mcg/actuation 1 inh INHALATION DAILY 07/31/21 07/31/21 History blister powder for inhalation (Incruse Ellipta) Patient History Medical History Cholelithiasis without obstruction COPD (chronic obstructive pulmonary disease) Depression Hyperlipidemia Hypertension Incisional hernia Morbid obesity Surgical History History of major abdominal surgery Family History Mother , age 76 of lung cancer Breast cancer Lung cancer Stroke Myocardial infarction Father , age 54 of cancer (uncertain type) Cancer Social History (Updated 08/02/21 @ 10:04 by Lee Mixon MD) Smoking Status: Former smoker Number of Years Since Quit: 12; Hx Alcohol Use: No Hx Substance Use: No Preferred Language: Serbian Communication Ability: Effective Armament Repairer Required: No Beliefs That Will Affect Care: None marital status: Single Current Living Situation: Other Current Living Situation Comment: 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[facility], 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 Feels Safe at Home: Yes Assistive Devices: Oxygen - Continuous Review of Systems Constitutional: + fatigue and + weakness; no fever Eyes: + diplopia; no eye pain and no worsening vision Ear, Nose, Mouth, Throat: no ear pain, no tinnitus, no hearing loss, no dizziness, no snoring, no hoarseness and no dysphagia Respiratory: no cough and no dyspnea Cardiovascular: no chest pain, no palpitations and no lightheadedness Gastrointestinal: + abdominal pain; no nausea and no vomiting Musculoskeletal: + back pain and + neck pain; no radicular pain, no joint pain and no myalgia Integumentary: no rash and no lesions Neurologic: + localized weakness, + tingling, + numbness and + headache(s); no gait abnormality, no generalized weakness, no tremor(s), no abnormal movements, no abnormal speech, no confusion and no memory loss Psychiatric: + depression; no irritability, no anxiety, no difficulty concentrating, no confusion and no hallucinations Endocrine: no fatigue and no flushing Hematologic / Lymphatic: no easy bleeding and no easy bruising Allergy / Immunological: no urticaria and no problem reported Exam (Neuro) Physical Exam: The patient is right-handed. The patient is awake, alert, and attentive. Speech is normal without any aphasia or dysarthria. The patient can name objects, repeat phrases, and has normal spontaneous speech. Mentation and thought processes are intact, with orientation to person, place and time, and normal fund of knowledge. Attention and concentration are normal. Mood and affect are normal and appropriate. General appearance and grooming are normal. Short and long-term memory seem intact. Pupils are 4 mm bilaterally and reactive to light. Extraocular eye muscles are intact without nystagmus (despite his complaining of double vision). Visual acuity and visual castañeda seem normal grossly to confrontation. He has ptosis of the upper and lower lids on the left but not the right. He cannot close his right eye well. He cannot raise his forehead on the right or the corner of his mouth on the right. Left side moves well. He has decreased sensation in all 3 distributions of the 5th cranial nerve to pin and touch on the right compared to the left which is normal. Hearing seems normal bilaterally. Palate moves well without asymmetry. There is normal sternocleidomastoid and trapezius (shoulder shrug) strength bilaterally. Tongue is midline but seems weak bilaterally Neck has a full range of motion with some discomfort. There are no cervical bruits bilaterally. There are no cranial or ocular bruits. Heart is without murmur. There is a regular rhythm and rate. Cervical, thoracic, and lumbar spine are nontender to palpation. gait was not tested in sitting up in bed is poor due to abdominal pain. With outstretched arms there is no drift. There are no resting, postural, or action tremors. There is no ataxia with finger to nose testing. There is reasonable facility in the hands. No other abnormal involuntary movements are noted. Motor strength is 5/5 diffusely in the left arm and leg both proximally and distally. On the right there is giveaway weakness and some irregular strength patterns both proximally and distally in the arm and the leg. The limbs have good tone without rigidity or spasticity. There is no atrophy noted in the muscles. Muscle bulk is normal, there is no tenderness to palpation, no myotonia to percussion, and no fasciculations seen. Sensory examination Reveals decreased sensation to pin and touch diffusely in the right arm and leg compared to the left which is normal. The trunk is spared. Reflexes are 2/4 in the biceps, triceps, brachioradialis, quadriceps, and Achilles tendons bilaterally. There is no clonus bilaterally. Toes are downgoing with plantar stimulation bilaterally. Peripheral pulses are present and of normal quality distally in all 4 limbs. There is no peripheral edema noted in the limbs. Results & Data ([facility]) Vital Signs (Past 12 Hours) Vital Signs Temp Pulse Pulse Resp BP BP Pulse Ox 08/02/21 07:19 36.7 C 92 H 18 172/79 H 90 08/02/21 03:08 36.9 C 80 16 147/87 H 94 08/02/21 00:50 08/01/21 23:48 36.8 C 84 14 160/91 H 90 08/01/21 23:45 82 08/01/21 22:52 82 18 158/97 H 95 Pulse Ox 08/02/21 07:19 08/02/21 03:08 08/02/21 00:50 92 08/01/21 23:48 08/01/21 23:45 08/01/21 22:52 PG Care Time/CCT Total # of Minutes Spent Total Time Spent with Patient: Total time spent is greater than 50% in coordination of care (as documented) at patient's floor/unit and/or counseling patient: Coding Level of Care Code 52509 Inpt Consult Level 5 Diagnoses Right sided weakness R53.1 Numbness on right side R20.0 7th nerve palsy G51.0 Right facial numbness R20.0 Ptosis of eyelid, left H02.402 Complicated migraine G43.109 Time Spent (min) 90
--- NOTE | 2021-08-02 12:54 | Hospitalist Progress Note ---
Date of Service August 02, 2021 Assessment & Plan (1) Stroke-like symptoms: Plan: Strokelike symptoms/right-sided headache/right-sided numbness. Headache began on Sunday. Neurologic symptoms began on 07/31. - MRI brain on 08/01 with *no* acute or prior CVA. - Carotid Dopplers on 08/01 without significant stenosis. - Discussed with neurology on 08/02. Peripheral CN VIII. Given equivocal Lyme, will start doxycycline. For complex migraine symptoms, will start Medrol Dosepak. - Continue Toradol PRN -> No improvement today. Given complex cranial nerve difficulties, will look for infectious/inflammatory causes with LP, repeat MRI, get other labs. (2) Headache: Plan: Symptoms extend from cervical area toward frontal on the right side, and extending to V1, V2, and V3 distributions. Differential includes: Herpetic neuralgia, muscle spasm, cervical radiculopathy involving C1 and C2. - As above (3) Hyperlipidemia: Plan: - Continue rosuvastatin 20 mg daily (4) COPD (chronic obstructive pulmonary disease): Plan: No wheezing. - Continue usual inhalers (5) Abdominal pain: Plan: Chronic abdominal pain/incisional hernias/history of major abdominal surgery. Reports upcoming evaluation with [facility] surgery [facility]. - No acute change today - Continue dicyclomine (6) Incisional hernia: Plan: See above (7) Depression: Plan: - Continue oxcarbazepine, mirtazapine (8) DVT prophylaxis: Plan: Lovenox 40 mg SQ daily Admission and Anticipated Discharge Date Admission Date: July 31, 2021 Subjective No change today. Still with facial issues and right-sided weakness and paresthesias. Reports no fevers/chills, chest pain, shortness of breath, abdominal pain, nausea, or vomiting. Physical Exam Constitutional: WD/WN, vitals as above Eyes: EOM intact bilaterally; no conjunctival abnormality ENMT: external ear and nose normal, oropharynx normal Neck: trachea midline, no thyromegaly normal visual inspection Respiratory: normal respiratory effort, lungs clear to auscultation no respiratory distress Cardiovascular: RRR, no murmur, no edema Gastrointestinal (Abdomen): Inspection/Auscultation: abdomen normal to inspection; abdomen not distended Musculoskeletal: Extremities: + abnormal strength (Weaker on right side) Skin: no rashes, warm and dry Neurologic: moves all extremities and awake Psychiatric: Orientation: alert, oriented to person and cooperative Results & Data Results & Data ([facility]) Vital Signs (Past 12 Hours) Vital Signs Temp Pulse Resp BP BP Pulse Ox 08/02/21 10:45 36.3 C L 83 19 146/82 H 94 08/02/21 07:19 36.7 C 92 H 18 172/79 H 90 08/02/21 03:08 36.9 C 80 16 147/87 H 94 PG Care Time/CCT Total # of Minutes Spent Total Time Spent with Patient: Total time spent is greater than 50% in coordination of care (as documented) at patient's floor/unit and/or counseling patient: Coding Level of Care Code 03715 Subseq Hosp Care Lvl 2 Diagnoses Stroke-like symptoms R29.90 Headache R51.9 Headache chronicity pattern: acute headache Headache type: unspecified Intractability: intractable Hyperlipidemia E78.5 COPD (chronic obstructive pulmonary disease) J44.9 Abdominal pain R10.9 Abdominal location: unspecified location Incisional hernia K43.2 Obstruction and gangrene presence: without obstruction or gangrene Depression F32.9 DVT prophylaxis Z29.9 (1) Headache Headache chronicity pattern: acute headache Headache type: unspecified Intractability: intractable Qualified Code(s): R51.9 - Headache, unspecified (2) Abdominal pain Abdominal location: unspecified location Qualified Code(s): R10.9 - Unspecified abdominal pain (3) Incisional hernia Obstruction and gangrene presence: without obstruction or gangrene Qualified Code(s): K43.2 - Incisional hernia without obstruction or gangrene
[2021-08-02] MEDS: KETOROLAC TROMETHAMINE 15 MG/ML VIAL IV PRN ×2 (13:48→22:16)
[2021-08-02 16:15] LABS: C Reactive Protein 0.44 mg/dl (0-0.29); Thyroid Stimulating Hormone 0.167 uIu/ml (0.300-4.500)
[2021-08-02 16:27] LABS: T4 Free Thyroxine 0.79 ng/dl (0.8-1.6)
[2021-08-02] MEDS: ROSUVASTATIN CALCIUM 20 MG TAB PO SCH (20:14)
[2021-08-02] MEDS: MIRTAZAPINE SOLTAB 15 MG PO SCH (20:15)
[2021-08-02] MEDS ORDERED: methylPREDNISolone 4 MG TAB PO SCH (21:00)
--- NOTE | 2021-08-02 22:11 | Electrocardiogram Report ---
Test Reason : Blood Pressure : / mmHG Vent. Rate : 084 BPM Atrial Rate : 084 BPM P-R Int : 206 ms QRS Dur : 086 ms QT Int : 362 ms P-R-T Axes : 041 056 037 degrees QTc Int : 427 ms Normal sinus rhythm Normal ECG No previous ECGs available Confirmed by Jayce Marie ([id number]) on 08/02/2021 10:11:23 PM Referred By: [facility] MCKEON Confirmed By:Jayce Marie
[2021-08-03] MEDS ORDERED: GADOBUTROL 65ML VIAL IV ONE (00:08)
[2021-08-03 00:27] LABS: 18KDIGG Band NON-REACTIVE; 23KDIGG Band NON-REACTIVE; 23KDIGM Band REACTIVE; 28KDIGG Band NON-REACTIVE; 30KDIGG Band NON-REACTIVE; 39KDIGG Band NON-REACTIVE; 39KDIGM Band NON-REACTIVE; 41KDIGG Band NON-REACTIVE; 41KDIGM Band NON-REACTIVE; 45KDIGG Band NON-REACTIVE; 58KDIGG Band REACTIVE; 66KDIGG Band NON-REACTIVE; 93KDIGG Band NON-REACTIVE; Lyme Antibodies, WB IgG NEGATIVE (NEGATIVE); Lyme Antibodies, WB IgM NEGATIVE (NEGATIVE)
[2021-08-03] MEDS: MoRPHine SULFATE 2 MG/ML CARP IV PRN ×4 (01:02→23:42)
[2021-08-03] MEDS: methylPREDNISolone 4 MG TAB PO SCH ×4 (06:15→20:54)
[2021-08-03] MEDS: KETOROLAC TROMETHAMINE 15 MG/ML VIAL IV PRN ×2 (06:18→15:51)
[2021-08-03] MEDS: ACETAMINOPHEN W/CODEINE #3 1 TAB PO SCH ×2 (07:51→20:54)
[2021-08-03] MEDS: PANTOprazole 40 MG TAB PO SCH (07:52)
[2021-08-03] MEDS: SIMETHICONE 80 MG CHEW PO SCH ×2 (07:52→20:53)
[2021-08-03] MEDS: OXcarbazepine 150 MG TABLET PO SCH ×2 (07:52→20:53)
[2021-08-03] MEDS: UMECLIDINIUM BROMIDE 62.5MCG/BLISTER 7 PUFFS/INHALER INH SCH (07:52)
[2021-08-03] MEDS: DOXYCYCLINE HYCLATE 100 MG CAP PO SCH ×2 (07:52→20:54)
[2021-08-03] MEDS: DICYCLOMINE HCL 20 MG TAB PO SCH ×2 (07:52→20:53)
[2021-08-03] MEDS: FLUTICASONE/VILANTEROL 200/25MCG 14 PUFFS/INHALER INH SCH (07:52)
[2021-08-03] MEDS: AMMONIUM LACTATE 12% LOTION 225 GM BTL EXT SCH ×2 (07:53→20:51)
--- NOTE | 2021-08-03 08:46 | Magnetic Resonance Report ---
MR brain wo/w con CLINICAL HISTORY: Attention to the brainstem with extra cuts through numbness across the right side o f the face, right arm, and leg. Pain in the back of the neck along the right side. TECHNIQUE: Multiplanar and multisequence MR images of the brain were obtained prior to and following administration of gadolinium contrast. Comparison: Comparison is made to MRI brain 08/01/2021 FINDINGS: No abnormal restricted diffusion is identified. The white matter is unremarkable. The ventricular sys tem is normal in appearance. There is no evidence of acute intraparenchymal hemorrhage. No extra axia l fluid collections are seen. There are no masses, mass effect, or midline shift. No abnormal enhance ment is seen. The corpus callosum, pituitary gland, and cerebellar tonsils appear grossly unremarkab le. Flow voids of the major intracranial arterial vessels are identified. The imaged portions of the para nasal sinuses, mastoid air cells, and orbits are unremarkable. IMPRESSION: No acute abnormality, in particular no restricted diffusion or signal abnormality is seen in the brai nstem. ACT 112: Negative or not required by law. Electronically signed by: Juan Francisco Vargas M.D. 08/03/2021 8:45 AM
[2021-08-03 08:47] LABS: Basophils # (auto) 0.01 K/uL (0-0.2); Basophils % (auto) 0.1 %; Eosinophils # (auto) 0.05 K/uL (0-0.5); Eosinophils % (auto) 0.6 %; Hemoglobin 13.2 g/dL (14.0-18.0); Immature Granulocytes # (auto) 0.04 K/uL (0.00-0.02); Immature Granulocytes % (auto) 0.5 %; Lymphocytes # (auto) 1.56 K/uL (1.2-3.4); Lymphocytes % (auto) 18.9 %; Mean Corpuscular Hemoglobin 29.6 pg (25-34); Mean Corpuscular Volume 89.7 fL (80-100); Mean Platelet Volume 9.7 fL (7.4-10.4); Monocytes # (auto) 0.39 K/uL (0.11-0.59); Monocytes % (auto) 4.7 %; Neutrophils # (auto) 6.19 K/uL (1.4-6.5); Neutrophils % (auto) 75.2 %; Platelet Count 220 K/uL (130-400); RDW Coefficient of Variation 12.8 % (11.5-14.5); RDW Standard Deviation 41.6 fL (36.4-46.3); Red Blood Count 4.46 M/uL (4.7-6.1); White Blood Count 8.24 K/uL (4.8-10.8)
[2021-08-03 09:29] LABS: Albumin Level 3.6 gm/dl (3.4-5.0); BUN Creatinine Ratio 30.5 (10-20); Calcium 8.8 mg/dl (8.5-10.1); Est GFR (African American) 128.9 ml/min; Est GFR (Non-African American) 111.3 ml/min; Potassium 3.7 mmol/L (3.5-5.1)
[2021-08-03 09:31] LABS: Albumin Globulin Ratio 1.1 (0.9-2); Bilirubin,Total 0.5 mg/dl (0.2-1); Globulin 3.4 gm/dl (2.5-4.0)
--- NOTE | 2021-08-03 10:14 | Neurology Progress Note ---
Date of Service August 03, 2021 Assessment & Plan (1) Right-sided Brasher's palsy: Plan: I suspect this patient has a right Brasher's palsy which occurs approximately 3 weeks after receiving a COVID-19 booster vaccination ([employer]), per patient recollection. He has significant weakness for the right upper and lower facial musculature and is unable to completely close the right eyelid. He tends to squint with the left eye and exhibits some resistance to passive opening of the eyelid. I do not think he has a true ptosis for the left eye. I do not find evidence of other cranial neuropathies on examination. Furthermore, his mild relative weakness for the right arm and leg seem functional. The weakness has a giveaway character. He does not orbit are fixed with normal on the right. There is no significant difference with oufvor-ok-yujl or litt-oc-sflp on the right. There is no significant difference with facility of the right hand. There is no difference in deep tendon reflexes when comparing left to right. Would recommend treatment as per Brasher's palsy including a corticosteroid taper. Would also consider adding valacyclovir. Continue with doxycycline as well although Lyme Western blot only revealed a few positive bands, I doubt he has Lyme disease. I do not think additional testing such as lumbar puncture or angiography is necessary at this time. He does have an allergy to iodinated contrast media which would relatively preclude him from CT angiography of the head and neck. MR angiography of the head and neck could potentially be obtained although this testing would be very unlikely to alter his management given unremarkable brain MRI x2 and carotid ultrasound results. There was notably good vertebral flow bilaterally on the ultrasound. Also, he does not have Guillain-Chicas syndrome given his intact deep tendon reflexes, including Achilles tendon reflexes, and lack of a characteristic ascending weakness pattern. Admission and Anticipated Discharge Date Admission Date: July 31, 2021 Subjective Follow-up for weakness The patient is a 51-year-old male prisoner with subacute right upper and lower facial weakness consistent with a Brasher's palsy, but with some associated functional appearing weakness of the right arm and leg as well as apparent inability to fully open the left eyelid. Symptoms began this past Sunday, preceded by headache. Patient complains of associated numbness and tingling as well. Informs me that he had a COVID-19 booster vaccination, [employer], about 3 weeks prior to symptom onset. Dr. Mixon saw this patient in neurological consultation yesterday who noted his right 7th nerve palsy as well as inconsistent weakness of the right arm and leg as well as some difficulty opening the left eyelid. There was some concern for functional weakness or embellishment. This patient did have a repeat brain MRI completed that again revealed no evidence of acute or subacute infarct. Additional high resolution sequences were completed on this follow-up study. I did review the images as well as the radiologist interpretation of this test and agree. A carotid duplex completed 2 days ago was negative for hemodynamically significant stenosis. Antegrade flow seen in both vertebral arteries. I did review his lab work as well. ESR 8, hemoglobin A1c 5.9, C-reactive protein 0.44, triglycerides 188, cholesterol 180, LDL 110, VLDL 38, HDL 32, vitamin B12 level 366, TFTs reduced, TSH 0.167, free T4 0.79. Lyme Western blot negative, did have a single positive IgG band and a single reactive IgM band. SARS-CoV-2 PCR negative. Patient has been receiving methylprednisolone and doxycycline. Review of Systems Constitutional: no fever and no chills Eyes: as per Subjective / HPI; no diplopia and no eye pain Neurologic: + localized weakness and + paresthesia Results & Data ([facility]) Vital Signs (Past 12 Hours) Vital Signs Temp Pulse Resp BP BP Pulse Ox 08/03/21 07:36 36.4 C L 66 18 148/85 H 99 08/03/21 04:09 37.0 C 73 18 117/82 94 08/03/21 01:26 154/87 H 08/02/21 23:00 36.4 C L 79 20 176/76 H 97 Exam (Neuro) Neurologic: Oriented to:: Person, Place and Time Attention: Span Intact and Concentration Intact Speech Fluency: Dysarthria (mild); negative Dysfluency Fund of Knowledge: Vocabulary Cranial Nerves: Normal II, III, IV, , VIII, IX, X, XI and XII; Abnorm V (Mildly reduced sensation for the right side of the face noted.) or VII (Weakness of the right upper and lower facial musculature noted, severe, unable to close right eyelid.) Motor Strength: Hemiparesis (Mild inconsistent functional appearing weakness for the right arm and leg noted. No fix with arm roll. No relative dysmetria with [id number] or nwcw-ua-[id number].) Motor Tone: Normal Lower Extremities and Normal Upper Extremities Muscle Bulk/Involuntary Movements: No Involuntary Movements Sensation: negative Light Touch Intact (Mildly reduced sensation to light touch for the right arm and leg.) Coordination: Finger-Nose Abnormal and Heel-Rizo Abnormal Deep Tendon Reflexes: Rt Triceps: 2+, Lt Triceps: 2+, Rt Biceps: 2+, Lt Biceps: 2+, Rt Brachioradialis: 2+, Lt Brachioradialis: 2+, Rt Patellar: 2+, Lt Patellar: 2+, Rt Ankle: 2+ and Lt Ankle: 2+ Special Tests: negative Babinski Present PG Care Time/CCT Total # of Minutes Spent Total Time Spent with Patient: Total time spent is greater than 50% in coordination of care (as documented) at patient's floor/unit and/or counseling patient: Coding Level of Care Code 25561 Subseq Hosp Care Lvl 2 Diagnoses Right-sided Brasher's palsy G51.0
--- NOTE | 2021-08-03 13:51 | Hospitalist Progress Note ---
Date of Service August 03, 2021 Assessment & Plan (1) Stroke-like symptoms: Plan: Strokelike symptoms/right-sided headache/right-sided numbness. Headache began on Sunday. Neurologic symptoms began on 07/31. - MRI brain on 08/01 with *no* acute or prior CVA. - Carotid Dopplers on 08/01 without significant stenosis. - Discussed with neurology on 08/02 & 08/03. Peripheral CN VIII. Given equivocal Lyme, will start doxycycline. For complex migraine symptoms, will start Medrol Dosepak. - Continue Toradol PRN -> Some improvement today. Neurology felt no additional testing was necessary at this time. Will consider starting Valtrex in case there is any aspect of John- [place]. (2) Headache: Plan: Symptoms extend from cervical area toward frontal on the right side, and extending to V1, V2, and V3 distributions. Differential includes: Herpetic neuralgia, muscle spasm, cervical radiculopathy involving C1 and C2. - As above (3) Hyperlipidemia: Plan: - Continue rosuvastatin 20 mg daily (4) COPD (chronic obstructive pulmonary disease): Plan: No wheezing. - Continue usual inhalers (5) Abdominal pain: Plan: Chronic abdominal pain/incisional hernias/history of major abdominal surgery. Reports upcoming evaluation with [facility] surgery [facility]. - No acute change today - Continue dicyclomine (6) Incisional hernia: Plan: See above (7) Depression: Plan: - Continue oxcarbazepine, mirtazapine (8) DVT prophylaxis: Plan: Lovenox 40 mg SQ daily Admission and Anticipated Discharge Date Admission Date: July 31, 2021 Subjective Doing better today. More strength in arms and legs. Less squinting with left eye. Reports no fevers/chills, chest pain, shortness of breath, abdominal pain, nausea, or vomiting. Physical Exam Constitutional: WD/WN, vitals as above Eyes: EOM intact bilaterally; no conjunctival abnormality ENMT: external ear and nose normal, oropharynx normal Neck: trachea midline, no thyromegaly normal visual inspection Respiratory: normal respiratory effort, lungs clear to auscultation no respiratory distress Cardiovascular: RRR, no murmur, no edema Gastrointestinal (Abdomen): Inspection/Auscultation: abdomen normal to inspection; abdomen not distended Musculoskeletal: Extremities: + abnormal strength (Weaker on right side) Skin: no rashes, warm and dry Neurologic: moves all extremities and awake Psychiatric: Orientation: alert, oriented to person and cooperative Results & Data Results & Data ([facility]) Vital Signs (Past 12 Hours) Vital Signs Temp Pulse Resp BP BP Pulse Ox 08/03/21 11:02 36.5 C 72 22 153/95 H 95 08/03/21 07:36 36.4 C L 66 18 148/85 H 99 08/03/21 04:09 37.0 C 73 18 117/82 94 PG Care Time/CCT Total # of Minutes Spent Total Time Spent with Patient: Total time spent is greater than 50% in coordination of care (as documented) at patient's floor/unit and/or counseling patient: Coding Level of Care Code 68004 Subseq Hosp Care Lvl 2 Diagnoses Stroke-like symptoms R29.90 Headache R51.9 Headache chronicity pattern: acute headache Headache type: unspecified Intractability: intractable Hyperlipidemia E78.5 COPD (chronic obstructive pulmonary disease) J44.9 Abdominal pain R10.9 Abdominal location: unspecified location Incisional hernia K43.2 Obstruction and gangrene presence: without obstruction or gangrene Depression F32.9 DVT prophylaxis Z29.9 (1) Headache Headache chronicity pattern: acute headache Headache type: unspecified Intractability: intractable Qualified Code(s): R51.9 - Headache, unspecified (2) Abdominal pain Abdominal location: unspecified location Qualified Code(s): R10.9 - Unspecified abdominal pain (3) Incisional hernia Obstruction and gangrene presence: without obstruction or gangrene Qualified Code(s): K43.2 - Incisional hernia without obstruction or gangrene
[2021-08-03] MEDS: MIRTAZAPINE SOLTAB 15 MG PO SCH (20:51)
[2021-08-03] MEDS: ROSUVASTATIN CALCIUM 20 MG TAB PO SCH (20:54)
[2021-08-04] MEDS: KETOROLAC TROMETHAMINE 15 MG/ML VIAL IV PRN ×2 (03:00→12:29)
[2021-08-04] MEDS: MoRPHine SULFATE 2 MG/ML CARP IV PRN ×3 (05:37→23:30)
[2021-08-04] MEDS: methylPREDNISolone 4 MG TAB PO SCH ×3 (06:41→20:13)
[2021-08-04] MEDS: FLUTICASONE/VILANTEROL 200/25MCG 14 PUFFS/INHALER INH SCH (08:32)
[2021-08-04] MEDS: DOXYCYCLINE HYCLATE 100 MG CAP PO SCH ×2 (08:32→20:12)
[2021-08-04] MEDS: UMECLIDINIUM BROMIDE 62.5MCG/BLISTER 7 PUFFS/INHALER INH SCH (08:32)
[2021-08-04] MEDS: DICYCLOMINE HCL 20 MG TAB PO SCH ×2 (08:32→20:12)
[2021-08-04] MEDS: AMMONIUM LACTATE 12% LOTION 225 GM BTL EXT SCH ×2 (08:32→20:08)
[2021-08-04] MEDS: SIMETHICONE 80 MG CHEW PO SCH ×2 (08:33→20:11)
[2021-08-04] MEDS: OXcarbazepine 150 MG TABLET PO SCH ×2 (08:33→20:13)
[2021-08-04] MEDS: PANTOprazole 40 MG TAB PO SCH (08:33)
[2021-08-04] MEDS: ACETAMINOPHEN W/CODEINE #3 1 TAB PO SCH ×2 (08:35→20:08)
--- NOTE | 2021-08-04 10:06 | Neurology Progress Note ---
Date of Service August 04, 2021 Assessment & Plan (1) Right-sided Brasher's palsy: Plan: Right-sided Brasher's palsy, appears modestly improved this morning compared with yesterday, currently able to close the right eye. Patient continues to squint with the left eye, does not look like a true ptosis. Patient's right upper extremity weakness appears significantly improved compared with yesterday as well. He continues to exhibit some weakness for the right lower extremity although movement initiation is normal. Element of functional weakness suspected, especially given inconsistent examination findings and to unremarkable brain MRIs. Continue with current medical treatment including corticosteroid taper, and doxycycline. For patient's headache, could try adding topiramate 25 mg twice daily. With plan to uptitrate to 50 mg twice daily depending on clinical response. Of note, patient is already prescribed Trileptal for chronic pain in general, would continue with this medication at the current dosage which appears to be maximal. Admission and Anticipated Discharge Date Admission Date: August 03, 2021 Subjective Follow-up for Brasher's palsy, weakness Patient continues to complain of facial weakness, weakness of the limbs, and headache. Does admit that his right hand and arm strength seem modestly improved compared with yesterday. Review of Systems Eyes: no diplopia and no eye pain Neurologic: as per Subjective / HPI, + localized weakness, + loss of sensation and + headache(s) Results & Data ([facility]) Vital Signs (Past 12 Hours) Vital Signs Temp Pulse Pulse Resp BP Pulse Ox 08/04/21 08:00 62 08/04/21 07:47 36.6 C 65 18 144/82 H 97 08/04/21 03:00 36.5 C 70 18 162/84 H 95 08/04/21 00:00 81 08/03/21 23:00 36.4 C L 79 18 159/97 H 97 Laboratory Results ESR 8, hemoglobin A1c 5.9, RPR nonreactive, Lyme Western blot negative although did have 1 reactive IgG band and 1 reactive IgM band. Diagnostic Findings MRI brain x2 - for acute or subacute infarct. High resolution images were obtained for the second MRI as well. Carotid duplex unremarkable with normal vertebral flow bilaterally. Echocardiography technically limited although unremarkable, no evidence for cardioembolic source. Electrocardiogram unremarkable, normal sinus rhythm, 84 bpm. Exam (Neuro) Neurologic: Oriented to:: Person, Place and Time Attention: Span Intact and Concentration Intact Speech Fluency: negative Dysarthria or Dysfluency Fund of Knowledge: Vocabulary Cranial Nerves: Normal II and III, IV, ; Abnorm VII (Mild to moderate weakness for the right upper and lower facial musculature noted, is able to close the right eyelid.) Motor Strength: negative Normal Lower Extremities or Normal Upper Extremities Muscle Bulk/Involuntary Movements: No Involuntary Movements Coordination: negative Finger-Nose Abnormal Details: Patient continues to exhibit squinting for the left eye, he resists attempts at passively opening the eyelid. The pupils are equal, round, and reactive to light. Eye movements are intact. Speech is fluent and nondysarthric. He moves both upper limbs symmetrically, no pronator drift. 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 Movement quality otherwise appears normal, especially with casual observation. Patient also complains of persistent weakness for the right leg. However, movement initiation was normal appearing suggesting functional weakness or embellishment. Coding Level of Care Code 43978 Subseq Hosp Care Lvl 2 Diagnoses Right-sided Brasher's palsy G51.0
[2021-08-04 10:16] LABS: Anti Nuclear Antibody Screen NEGATIVE (NEGATIVE)
--- NOTE | 2021-08-04 16:42 | Hospitalist Progress Note ---
Date of Service August 04, 2021 Assessment & Plan (1) Stroke-like symptoms: Plan: Strokelike symptoms/right-sided headache/right-sided numbness. Headache began on Sunday. Neurologic symptoms began on 07/31. - MRI brain on 08/01 with *no* acute or prior CVA. - Carotid Dopplers on 08/01 without significant stenosis. - Discussed with neurology on 08/02 & 08/03. Peripheral CN VIII. Given equivocal Lyme, will start doxycycline. For complex migraine symptoms, will start Medrol Dosepak. - Continue Toradol PRN - Will add topiramate 25 mg PO BID for headache. Will add heat pad and Voltaren gel for neck pain. -> Some improvement today. Neurology felt no additional testing was necessary at this time. (2) Headache: Plan: Symptoms extend from cervical area toward frontal on the right side, and exte nding to V1, V2, and V3 distributions. Differential includes: Herpetic neuralgia, muscle spasm, cervical radiculopathy involving C1 and C2. - As above (3) Hyperlipidemia: Plan: - Continue rosuvastatin 20 mg daily (4) COPD (chronic obstructive pulmonary disease): Plan: No wheezing. - Continue usual inhalers (5) Abdominal pain: Plan: Chronic abdominal pain/incisional hernias/history of major abdominal surgery. Reports upcoming evaluation with [facility] surgery [facility]. - No acute change today - Continue dicyclomine (6) Incisional hernia: Plan: See above (7) Depression: Plan: - Continue oxcarbazepine, mirtazapine (8) DVT prophylaxis: Plan: Lovenox 40 mg SQ daily Admission and Anticipated Discharge Date Admission Date: August 03, 2021 Subjective Reports neck pain has not dramatically changed. Feels arm is stronger, but leg is not. Reports no fevers/chills, chest pain, shortness of breath, abdominal pain, nausea, or vomiting. Physical Exam Constitutional: WD/WN, vitals as above Eyes: EOM intact bilaterally; no conjunctival abnormality ENMT: external ear and nose normal, oropharynx normal Neck: trachea midline, no thyromegaly normal visual inspection Respiratory: normal respiratory effort, lungs clear to auscultation no respiratory distress Cardiovascular: RRR, no murmur, no edema Gastrointestinal (Abdomen): Inspection/Auscultation: abdomen normal to inspection; abdomen not distended Musculoskeletal: Extremities: + abnormal strength (Weaker on right side) Skin: no rashes, warm and dry Neurologic: moves all extremities and awake Psychiatric: Orientation: alert, oriented to person and cooperative Results & Data Results & Data ([facility]) Vital Signs (Past 12 Hours) Vital Signs Temp Pulse Pulse Resp BP Pulse Ox 08/04/21 16:06 36.7 C 84 20 141/25 H 93 08/04/21 15:22 76 08/04/21 11:20 36.8 C 75 20 175/82 H 94 08/04/21 08:00 62 08/04/21 07:47 36.6 C 65 18 144/82 H 97 PG Care Time/CCT Total # of Minutes Spent Total Time Spent with Patient: Total time spent is greater than 50% in coordination of care (as documented) at patient's floor/unit and/or counseling patient: Coding Level of Care Code 41473 Subseq Hosp Care Lvl 2 Diagnoses Stroke-like symptoms R29.90 Headache R51.9 Headache chronicity pattern: acute headache Headache type: unspecified Intractability: intractable Hyperlipidemia E78.5 COPD (chronic obstructive pulmonary disease) J44.9 Abdominal pain R10.9 Abdominal location: unspecified location Incisional hernia K43.2 Obstruction and gangrene presence: without obstruction or gangrene Depression F32.9 DVT prophylaxis Z29.9 (1) Headache Headache chronicity pattern: acute headache Headache type: unspecified Intractability: intractable Qualified Code(s): R51.9 - Headache, unspecified (2) Abdominal pain Abdominal location: unspecified location Qualified Code(s): R10.9 - Unspe cified abdominal pain (3) Incisional hernia Obstruction and gangrene presence: without obstruction or gangrene Qualified Code(s): K43.2 - Incisional hernia without obstruction or gangrene
[2021-08-04] MEDS: DICLOFENAC SOD 1% GEL 100 GM TUBE EXT SCH (20:09)
[2021-08-04] MEDS: MIRTAZAPINE SOLTAB 15 MG PO SCH (20:10)
[2021-08-04] MEDS: TOPIRAMATE 25 MG TAB PO SCH (20:14)
[2021-08-04] MEDS: ROSUVASTATIN CALCIUM 20 MG TAB PO SCH (20:14)
[2021-08-05] MEDS: MoRPHine SULFATE 2 MG/ML CARP IV PRN ×4 (05:04→22:42)
[2021-08-05] MEDS: methylPREDNISolone 4 MG TAB PO SCH ×2 (06:27→20:33)
[2021-08-05 07:18] LABS: Hematocrit (blood only) 41.7 % (42-52); Hemoglobin 13.8 g/dL (14.0-18.0); Mean Corpuscular Hemoglobin 30.1 pg (25-34); Mean Corpuscular Hgb Conc 33.1 g/dL (32-36); Mean Platelet Volume 10.2 fL (7.4-10.4); Platelet Count 240 K/uL (130-400); RDW Standard Deviation 43.3 fL (36.4-46.3); Red Blood Count 4.58 M/uL (4.7-6.1); White Blood Count 8.49 K/uL (4.8-10.8)
[2021-08-05 07:48] LABS: BUN Creatinine Ratio 24.7 (10-20); Calcium 8.8 mg/dl (8.5-10.1); Creatinine Clr Calc Pharmacy 215.4 ml/min; Est GFR (Non-African American) 115.6 ml/min
--- NOTE | 2021-08-05 08:32 | Hospitalist Progress Note ---
Date of Service August 05, 2021 Assessment & Plan (1) Stroke-like symptoms: Plan: Strokelike symptoms/right-sided headache/right-sided numbness. Headache began on Sunday. Neurologic symptoms began on 07/31. - MRI brain on 08/01 with *no* acute or prior CVA. - Carotid Dopplers on 08/01 without significant stenosis. - Discussed with neurology on 08/02 & 08/03. Peripheral CN VIII. Given equivocal Lyme, will start doxycycline. For complex migraine symptoms, will start Medrol Dosepak. - Continue Toradol PRN - Will add topiramate 50 mg PO BID for headache. Will add heat pad and Voltaren gel for neck pain. 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 no signs of shingles Neurology suggested topiramate and escalate dose 08/05/21 (3) Hyperlipidemia: Plan: - Continue rosuvastatin 20 mg daily (4) COPD (chronic obstructive pulmonary disease): Plan: No wheezing. - Continue usual inhalers (5) Abdominal pain: Plan: Chronic abdominal pain/incisional hernias/history of major abdominal surgery. Reports upcoming evaluation with [facility] surgery [facility]. - No acute change today - Continue dicyclomine (6) Incisional hernia: Plan: See above (7) Depression: Plan: - Continue oxcarbazepine, mirtazapine (8) DVT prophylaxis: Plan: Lovenox 40 mg SQ daily Admission and Anticipated Discharge Date Admission Date: August 03, 2021 Subjective Reports neck pain has not dramatically changed. Feels arm is stronger, facial droop and lack of right eye lid approximation reinfroces that this is bells palsy. Reports no fevers/chills, chest pain, shortness of breath, abdominal pain, nausea, or vomiting. Review of Systems Review of Systems: Mild distress and fatigue no headache, no visual changes no speech or swallowing issues no chest pain, pressure or palpitations no shortness of breath, cough or wheezes no abdominal pain, nausea or vomiting, diarrhea or constipation no dysuria, hematuria or frequency no focal joint pain or swelling no back pain, CVA tenderness or radicular pain no bruising, bleeding or rashes Right facial paresthesias not pain patient will drooping inability to a pproximate right eye plus some weakness to his right leg however this is improving Physical Exam Physical Exam: The patient appeared well nourished and normally developed. Vital signs as documented. Head exam is normocephalic atraumatic right facial droop inability approximate right eye lid Neck is without JVD, thyromegaly, or carotid bruits patient has reproducible tenderness to the right posterior neck Lungs are clear to auscultation, no focal loss of breath sounds Cardiac exam, Rhythm is regular.. No murmurs, rubs or gallops. Abdominal exam reveals normal bowel sounds, soft non tender, no masses Extremities are nonedematous and both pedal pulses are present Neurologic exam is alert and oriented, facial drooping and some right leg weakness is present Skin is without bruises or rashes no concerns for shingles rash is seen at this time Psychologically is without concerns for anxiety or depression.. Results & Data Results & Data ([facility]) Vital Signs (Past 12 Hours) Vital Signs Temp Pulse Pulse Resp BP Pulse Ox 08/05/21 08:07 75 08/05/21 03:00 97.5 F L 70 22 147/92 H 95 08/05/21 02:57 64 08/04/21 23:00 97.7 F 76 20 146/83 H 95 PG Care Time/CCT Total # of Minutes Spent Total Time Spent with Patient: Total time spent is greater than 50% in coordination of care (as documented) at patient's floor/unit and/or counseling patient: Coding Level of Care Code 33233 Subseq Hosp Care Lvl 3 Diagnoses Stroke-like symptoms R29.90 Headache R51.9 Headache chronicity pattern: acute headache Headache type: unspecified Intractability: intractable Hyperlipidemia E78.5 COPD (chronic obstructive pulmonary disease) J44.9 Abdominal pain R10.9 Abdominal location: unspecified location Incisional hernia K43.2 Obstruction and gangrene presence: without obstruction or gangrene Depression F32.9 DVT prophylaxis Z29.9 (1) Headache Headache chronicity pattern: acute headache Headache type: unspecified Intractability: intractable Qualified Code(s): R51.9 - Headache, unspecified (2) Incisional hernia Obstruction and gangrene presence: without obstruction or gangrene Qualified Code(s): K43.2 - Incisional hernia without obstruction or gangrene (3) Abdominal pain Abdominal location: unspecified location Qualified Code(s): R10.9 - Unspecified abdominal pain
[2021-08-05] MEDS: DICYCLOMINE HCL 20 MG TAB PO SCH ×2 (09:01→20:32)
[2021-08-05] MEDS: OXcarbazepine 150 MG TABLET PO SCH ×2 (09:01→20:34)
[2021-08-05] MEDS: PANTOprazole 40 MG TAB PO SCH (09:01)
[2021-08-05] MEDS: DOXYCYCLINE HYCLATE 100 MG CAP PO SCH ×2 (09:01→20:33)
[2021-08-05] MEDS: FLUTICASONE/VILANTEROL 200/25MCG 14 PUFFS/INHALER INH SCH (09:01)
[2021-08-05] MEDS: SIMETHICONE 80 MG CHEW PO SCH ×2 (09:01→20:34)
[2021-08-05] MEDS: TOPIRAMATE 25 MG TAB PO SCH (09:01)
[2021-08-05] MEDS: DICLOFENAC SOD 1% GEL 100 GM TUBE EXT SCH ×3 (09:02→20:30)
[2021-08-05] MEDS: UMECLIDINIUM BROMIDE 62.5MCG/BLISTER 7 PUFFS/INHALER INH SCH (09:02)
[2021-08-05] MEDS: AMMONIUM LACTATE 12% LOTION 225 GM BTL EXT SCH ×2 (09:02→20:31)
[2021-08-05] MEDS: ACETAMINOPHEN W/CODEINE #3 1 TAB PO SCH ×2 (09:05→20:24)
[2021-08-05] MEDS: oxyCODONE HCL IR 5 MG TAB (IMMEDIATE RELEASE) PO PRN (17:09)
[2021-08-05] MEDS: MIRTAZAPINE SOLTAB 15 MG PO SCH (20:29)
[2021-08-05] MEDS: ARTIFICIAL TEARS OP OINT 3.5 GM TUBE OP SCH (20:30)
[2021-08-05] MEDS: ROSUVASTATIN CALCIUM 20 MG TAB PO SCH (20:34)
[2021-08-05] MEDS: TOPIRAMATE 50 MG TAB PO SCH (20:35)
[2021-08-06] MEDS: oxyCODONE HCL IR 5 MG TAB (IMMEDIATE RELEASE) PO PRN ×2 (01:17→14:00)
[2021-08-06] MEDS: MoRPHine SULFATE 2 MG/ML CARP IV PRN ×5 (03:45→20:07)
[2021-08-06] MEDS ORDERED: methylPREDNISolone 4 MG TAB PO SCH (07:00)
--- NOTE | 2021-08-06 08:05 | Hospitalist Progress Note ---
Date of Service August 06, 2021 Assessment & Plan (1) Stroke-like symptoms: Plan: Strokelike symptoms/right-sided headache/right-sided numbness. Headache began on Sunday. Neurologic symptoms began on 07/31. - MRI brain on 08/01 with *no* acute or prior CVA. - Carotid Dopplers on 08/01 without significant stenosis. - Discussed with neurology on 08/02 & 08/03. Peripheral CN VIII. Given equivocal Lyme, did start doxycycline. For complex migraine symptoms, is on Me thylprednisolone. - Continue Toradol PRN - Increased topiramate 50 mg PO BID for headache. Oxycodone prn, heat pad and Voltaren gel for neck pain. 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 no signs of shingles Neurology suggested topiramate and escalate dose 08/05/21 (3) Hyperlipidemia: Plan: - Continue rosuvastatin 20 mg daily (4) COPD (chronic obstructive pulmonary disease): Plan: No wheezing. - Continue usual inhalers (5) Abdominal pain: Plan: Chronic abdominal pain/incisional hernias/history of major abdominal surgery. Reports upcoming evaluation with [facility]. - No acute change today - Continue dicyclomine (6) Incisional hernia: Plan: See above (7) Depression: Plan: - Continue oxcarbazepine, mirtazapine (8) DVT prophylaxis: Plan: Lovenox 40 mg SQ daily Admission and Anticipated Discharge Date Admission Date: August 03, 2021 Subjective Reports neck pain has not dramatically changed. Feels arm is stronger, facial droop and lack of right eye lid approximation reinfroces that this is bells palsy. Reports no fevers/chills, chest pain, shortness of breath, abdominal pa in, nausea, or vomiting. Review of Systems Review of Systems: Mild distress and fatigue no headache, no visual changes no speech or swallowing issues no chest pain, pressure or palpitations no shortness of breath, cough or wheezes no abdominal pain, nausea or vomiting, diarrhea or constipation no dysuria, hematuria or frequency no focal joint pain or swelling no back pain, CVA tenderness or radicular pain no bruising, bleeding or rashes Right facial paresthesias not pain patient will drooping inability to approximate right eye plus some weakness to his right leg however this is improving Physical Exam Physical Exam: The patient appeared well nourished and normally developed. Vital signs as documented. Head exam is normocephalic atraumatic right facial droop inability approximate right eye lid Neck is without JVD, thyromegaly, or carotid bruits patient has reproducible tenderness to the right posterior neck Lungs are clear to auscultation, no focal loss of breath sounds Cardiac exam, Rhythm is regular.. No murmurs, rubs or gallops. Abdominal exam reveals normal bowel sounds, soft non tender, no masses Extremities are nonedematous and both pedal pulses are present Neurologic exam is alert and oriented, facial drooping and some right leg weakness is present Skin is without bruises or rashes no concerns for shingles rash is seen at this time Psychologically is without concerns for anxiety or depression.. Results & Data Results & Data ([facility]) Vital Signs (Past 12 Hours) Vital Signs Temp Pulse Pulse Resp BP Pulse Ox 08/06/21 07:45 97.9 F 76 20 143/99 H 95 08/06/21 00:52 77 08/05/21 22:00 98.1 F 81 18 166/79 H 95 PG Care Time/CCT Total # of Minutes Spent Total Time Spent with Patient: Total time spent is greater than 50% in coordination of care (as documented) at patient's floor/unit and/or counseling patient: Coding Level of Care Code 25958 Subseq Hosp Care Lvl 3 Diagnoses Stroke-like symptoms R29.90 Headache R51.9 Headache chronicity pattern: acute headache Headache type: unspecified Intractability: intractable Hyperlipidemia E78.5 COPD (chronic obstructive pulmonary disease) J44.9 Abdominal pain R10.9 Abdominal location: unspecified location Incisional hernia K43.2 Obstruction and gangrene presence: without obstruction or gangrene Depression F32.9 DVT prophylaxis Z29.9 (1) Headache Headache chronicity pattern: acute headache Headache type: unspecified Intractability: intractable Qualified Code(s): R51.9 - Headache, unspecified (2) Incisional hernia Obstruction and gangrene presence: without obstruction or gangrene Qualified Code(s): K43.2 - Incisional hernia without obstruction or gangrene (3) Abdominal pain Abdominal location: unspecified location Qualified Code(s): R10.9 - Unspecified abdominal pain
[2021-08-06] MEDS: AMMONIUM LACTATE 12% LOTION 225 GM BTL EXT SCH ×3 (08:29→20:15)
[2021-08-06] MEDS: ACETAMINOPHEN W/CODEINE #3 1 TAB PO SCH (08:29)
[2021-08-06] MEDS: DICLOFENAC SOD 1% GEL 100 GM TUBE EXT SCH ×4 (08:29→20:14)
[2021-08-06] MEDS: SIMETHICONE 80 MG CHEW PO SCH ×2 (08:30→20:12)
[2021-08-06] MEDS: TOPIRAMATE 50 MG TAB PO SCH ×2 (08:30→20:11)
[2021-08-06] MEDS: DICYCLOMINE HCL 20 MG TAB PO SCH ×2 (08:30→20:12)
[2021-08-06] MEDS: OXcarbazepine 150 MG TABLET PO SCH ×2 (08:30→20:11)
[2021-08-06] MEDS: FLUTICASONE/VILANTEROL 200/25MCG 14 PUFFS/INHALER INH SCH (08:31)
[2021-08-06] MEDS: PANTOprazole 40 MG TAB PO SCH (08:31)
[2021-08-06] MEDS: UMECLIDINIUM BROMIDE 62.5MCG/BLISTER 7 PUFFS/INHALER INH SCH (08:31)
[2021-08-06] MEDS: DOXYCYCLINE HYCLATE 100 MG CAP PO SCH ×2 (08:31→20:10)
[2021-08-06] MEDS ORDERED: HYDROcodone/ACETAMINOPHEN 10/325 TAB PO PRN (16:54)
[2021-08-06] MEDS: predniSONE 20 MG TAB PO SCH (17:38)
[2021-08-06] MEDS: valACYclovir HCL 500 MG TABLET PO SCH (20:09)
[2021-08-06] MEDS: ROSUVASTATIN CALCIUM 20 MG TAB PO SCH (20:10)
[2021-08-06] MEDS: ARTIFICIAL TEARS OP OINT 3.5 GM TUBE OP SCH (20:15)
[2021-08-06] MEDS: MIRTAZAPINE SOLTAB 15 MG PO SCH (20:15)
[2021-08-07] MEDS: HYDROcodone/ACETAMINOPHEN 10/325 TAB PO PRN ×4 (00:20→22:27)
--- NOTE | 2021-08-07 07:35 | Hospitalist Progress Note ---
Date of Service August 07, 2021 Assessment & Plan (1) Stroke-like symptoms: Plan: Strokelike symptoms/right-sided headache/right-sided numbness. Headache began on Sunday. Neurologic symptoms began on 07/31. - MRI brain on 08/01 with *no* acute or prior CVA. - Carotid Dopplers on 08/01 without significant stenosis. - Discussed with neurology on 08/02 & 08/03. Peripheral CN VIII. Given equivocal Lyme, did start doxycycline. For complex migraine symptoms, is on Me thylprednisolone. - Continue Toradol PRN - Increased topiramate 50 mg PO BID for headache. Oxycodone prn, heat pad and Voltaren gel for neck pain. -> facial drooping in face of negative brain imaging seems consistent with bells palsy lyme disease maybe implicated in this will protect eye from drying out by using lacrilube at night discussed Lumbar puncture, pt cannot lay on abdomen due to issues with hernia, IR feels cannot do LP sitting up, will imaging MRI cervical spine as his arm and leg weakness do not seem to fit with just bells palsy in addition to neck pain (2) Headache: Plan: Symptoms extend from cervical area toward frontal on the right side, and extending to V1, V2, and V3 distributions. no signs of shingles Neurology suggested topiramate and escalate dose 08/05/21 (3) Hyperlipidemia: Plan: - Continue rosuvastatin 20 mg daily (4) COPD (chronic obstructive pulmonary disease): Plan: No wheezing. - Continue usual inhalers (5) Abdominal pain: Plan: Chronic abdominal pain/incisional hernias/history of major abdominal surgery. Reports upcoming evaluation with [facility] surgery [facility]. - No acute change today - Continue dicyclomine (6) Incisional hernia: Plan: See above (7) Depression: Plan: - Continue oxcarbazepine, mirtazapine (8) DVT prophylaxis: Plan: Lovenox 40 mg SQ daily Admission and Anticipated Discharge Date Admission Date: August 03, 2021 Subjective Reports neck pain has not dramatically changed. Feels arm is stronger, facial droop and lack of right eye lid approximation, plus lack of ability to raise right eyebrow, reinfroces that this is bells palsy. Reports no fevers/chills, chest pain, shortness of breath, abdominal pain, nausea, or vomiting. Review of Systems Review of Systems: Mild distress and fatigue no headache, no visual changes no speech or swallowing issues no chest pain, pressure or palpitations no shortness of breath, cough or wheezes no abdominal pain, nausea or vomiting, diarrhea or constipation no dysuria, hematuria or frequency no focal joint pain or swelling no back pain, CVA tenderness or radicular pain no bruising, bleeding or rashes Right facial paresthesias not pain patient will drooping inability to approximate right eye plus some weakness to his right leg however this is improving Physical Exam Physical Exam: The patient appeared well nourished and normally developed. Vital signs as documented. Head exam is normocephalic atraumatic right facial droop inability approximate right eye lid Neck is without JVD, thyromegaly, or carotid bruits patient has reproducible tenderness to the right posterior neck Lungs are clear to auscultation, no focal loss of breath sounds Cardiac exam, Rhythm is regular.. No murmurs, rubs or gallops. Abdominal exam reveals normal bowel sounds, soft non tender, no masses Extremities are nonedematous and both pedal pulses are present Neurologic exam is alert and oriented, facial drooping and some right leg weakness is present Skin is without bruises or rashes no concerns for shingles rash is seen at this time Psychologically is without concerns for anxiety or depression.. Results & Data Results & Data ([facility]) Vital Signs (Past 12 Hours) Vital Signs Temp Pulse Pulse Resp BP BP Pulse Ox 08/07/21 05:28 97.9 F 85 18 160/95 H 96 08/07/21 01:43 80 08/06/21 23:00 97.9 F 86 18 136/83 95 08/06/21 20:24 97.9 F 76 14 141/80 H 94 PG Care Time/CCT Total # of Minutes Spent Total Time Spent with Patient: Total time spent is greater than 50% in coordination of care (as documented) at patient's floor/unit and/or counseling patient: Coding Level of Care Code 51862 Subseq Hosp Care Lvl 2 Diagnoses Stroke-like symptoms R29.90 Headache R51.9 Headache chronicity pattern: acute headache Headache type: unspecified Intractability: intractable Hyperlipidemia E78.5 COPD (chronic obstructive pulmonary disease) J44.9 Abdominal pain R10.9 Abdominal location: unspecified location Incisional hernia K43.2 Obstruction and gangrene presence: without obstruction or gangrene Depression F32.9 DVT prophylaxis Z29.9 (1) Headache Headache chronicity pattern: acute headache Headache type: unspecified Intractability: intractable Qualified Code(s): R51.9 - Headache, unspecified (2) Incisional hernia Obstruction and gangrene presence: without obstruction or gangrene Qualified Code(s): K43.2 - Incisional hernia without obstruction or gangrene (3) Abdominal pain Abdominal location: unspecified location Qualified Code(s): R10.9 - Unspecified abdominal pain
[2021-08-07] MEDS: DICLOFENAC SOD 1% GEL 100 GM TUBE EXT SCH ×3 (07:40→20:25)
[2021-08-07] MEDS: AMMONIUM LACTATE 12% LOTION 225 GM BTL EXT SCH ×2 (07:41→20:25)
[2021-08-07] MEDS: DOXYCYCLINE HYCLATE 100 MG CAP PO SCH ×2 (08:19→20:23)
[2021-08-07] MEDS: TOPIRAMATE 50 MG TAB PO SCH ×2 (08:19→20:22)
[2021-08-07] MEDS: OXcarbazepine 150 MG TABLET PO SCH ×2 (08:19→20:24)
[2021-08-07] MEDS: predniSONE 20 MG TAB PO SCH (08:19)
[2021-08-07] MEDS: PANTOprazole 40 MG TAB PO SCH (08:19)
[2021-08-07] MEDS: valACYclovir HCL 500 MG TABLET PO SCH ×3 (08:20→20:22)
[2021-08-07] MEDS: DICYCLOMINE HCL 20 MG TAB PO SCH ×2 (08:21→20:24)
[2021-08-07] MEDS: FLUTICASONE/VILANTEROL 200/25MCG 14 PUFFS/INHALER INH SCH (08:21)
[2021-08-07] MEDS: SIMETHICONE 80 MG CHEW PO SCH ×2 (08:21→20:24)
[2021-08-07] MEDS: UMECLIDINIUM BROMIDE 62.5MCG/BLISTER 7 PUFFS/INHALER INH SCH (08:21)
[2021-08-07] MEDS: MoRPHine SULFATE 2 MG/ML CARP IV PRN (11:30)
[2021-08-07] MEDS ORDERED: POLYETHYLENE (MIRALAX) 17 GM PACK PO PRN (17:03)
[2021-08-07] MEDS ORDERED: LORazepam 1 MG/2 ML VIAL IV SCH (17:15)
[2021-08-07] MEDS: ROSUVASTATIN CALCIUM 20 MG TAB PO SCH (20:24)
[2021-08-07] MEDS: MIRTAZAPINE SOLTAB 15 MG PO SCH (20:24)
[2021-08-08] MEDS: MoRPHine SULFATE 2 MG/ML CARP IV PRN ×3 (01:29→13:55)
[2021-08-08] MEDS: ARTIFICIAL TEARS OP OINT 3.5 GM TUBE OP SCH ×2 (01:29→20:44)
--- NOTE | 2021-08-08 08:40 | Magnetic Resonance Report ---
CERVICAL SPINE MRI HISTORY: Right arm and leg numbness. Right-sided neck pain. Assess for spinal stenosis. TECHNIQUE: Multiplanar multisequence MRI of the cervical spine was performed without the use of contr ast. COMPARISON STUDY: None. FINDINGS: Significant motion artifact results in suboptimal evaluation of the cervical spine. There i s straightening of the cervical spine. Normal marrow signal intensity seen throughout the visualized osseous structures. No fracture or subluxation. Mild disc space narrowing at C5-C6 and C6-C7 with sma ll endplate osteophytes. Visualized posterior fossa is unremarkable. Prevertebral soft tissues and th e C1-C2 interval are intact. Small patchy area of increased T2 signal within the cervical spinal cord at the C6 level which is best seen on the oblique sequences image 18 of 18. This favors discogenic m yelomalacia given the associated degenerative changes at this level. C2-C3: No significant central canal narrowing. There is severe bilateral neural foraminal narrowing d ue to the uncovertebral hypertrophy. C3-C4: Small broad-based posterior disc osteophyte complex which abuts and slightly deforms anterior cord resulting in mild central canal narrowing. There is severe left and moderate right neural forami nal narrowing due to the uncovertebral and facet hypertrophy. C4-C5: Broad-based posterior disc osteophyte complex which abuts and slightly deforms anterior cord c onsistent with mild central canal narrowing. There is severe bilateral neural foraminal narrowing due to the uncovertebral and facet hypertrophy. C5-C6: Broad-based posterior disc osteophyte complex asymmetric to the right which abuts and deforms anterior cord resulting in moderate central canal narrowing. The AP diameter of the central canal is approximately 6 mm. There is severe bilateral neural foraminal narrowing, right greater than left, du e to the uncovertebral and facet hypertrophy. C6-C7: Broad-based posterior disc osteophyte complex resulting in severe central canal narrowing with the AP diameter of the central canal measure proximal a 4.5 mm. There is associated moderate cord de formity at this level. There is severe bilateral neural foraminal narrowing due to the uncovertebral and facet hypertrophy. C7-T1: No significant central canal or neural foraminal narrowing. IMPRESSION: 1. Multilevel cervical spondylosis as described above most pronounced at the C6-C7 level which demons trates severe central canal and severe bilateral neural foraminal narrowing. 2. Patchy area of increased T2 signal within the C6 level the spinal cord. This there is nonspecific but favors discogenic myelomalacia given the adjacent degenerative changes. 3. Multilevel severe bilateral neural foraminal narrowing. 4. Straightening of the cervical spine. 5. No fracture or subluxation. ACT 112: Negative or not required by law. Electronically signed by: Ariel Pedersen M.D. 08/08/2021 8:38 AM
[2021-08-08] MEDS: FLUTICASONE/VILANTEROL 200/25MCG 14 PUFFS/INHALER INH SCH (08:59)
[2021-08-08] MEDS: valACYclovir HCL 500 MG TABLET PO SCH ×3 (09:01→20:39)
[2021-08-08] MEDS: TOPIRAMATE 50 MG TAB PO SCH ×2 (09:02→20:38)
[2021-08-08] MEDS: predniSONE 20 MG TAB PO SCH (09:02)
[2021-08-08] MEDS: DICYCLOMINE HCL 20 MG TAB PO SCH ×2 (09:03→20:42)
[2021-08-08] MEDS: SIMETHICONE 80 MG CHEW PO SCH ×2 (09:03→20:40)
[2021-08-08] MEDS: PANTOprazole 40 MG TAB PO SCH (09:03)
[2021-08-08] MEDS: DICLOFENAC SOD 1% GEL 100 GM TUBE EXT SCH ×3 (09:04→20:38)
[2021-08-08] MEDS: DOXYCYCLINE HYCLATE 100 MG CAP PO SCH (09:04)
[2021-08-08] MEDS: OXcarbazepine 150 MG TABLET PO SCH ×2 (09:05→20:42)
[2021-08-08] MEDS: AMMONIUM LACTATE 12% LOTION 225 GM BTL EXT SCH ×2 (09:06→20:37)
[2021-08-08] MEDS: UMECLIDINIUM BROMIDE 62.5MCG/BLISTER 7 PUFFS/INHALER INH SCH (10:35)
[2021-08-08] MEDS: HYDROcodone/ACETAMINOPHEN 10/325 TAB PO PRN ×2 (10:50→18:09)
--- NOTE | 2021-08-08 15:47 | Hospitalist Progress Note ---
Date of Service August 08, 2021 Assessment & Plan (1) Stroke-like symptoms: Plan: Strokelike symptoms/right-sided headache/right-sided numbness. Headache began on Sunday. Neurologic symptoms began on 07/31. - MRI brain on 08/01 with *no* acute or prior CVA. - Carotid Dopplers on 08/01 without significant stenosis. - Discussed with neurology on 08/02 & 08/03. Peripheral CN VIII. Given equivocal Lyme, did start doxycycline., confirmatory test not supportive will stop doxy For complex migraine symptoms, is on Methylprednisolone. - Continue Toradol PRN - Increased topiramate 50 mg PO BID for headache. Oxycodone prn, heat pad and Voltaren gel for neck pain. 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 Multilevel cervical spondylosis as described above most pronounced at the C6-C7 level which demonstrates severe central canal and severe bilateral neural foraminal narrowing. 2. Patchy area of increased T2 signal within the C6 level the spinal cord. This there is nonspecific but favors discogenic myelomalacia given the adjacent degenerative changes. 3. Multilevel severe bilateral neural foraminal narrowing. 4. Straightening of the cervical spine. 5. No fracture or subluxation. discussion with neurology will have ortho spine see patient and make determination if disease is significant enough and correlates with symptoms to warrant surgical correction. I phoned the correction and spoke to [facility] and updated them on his condition (2) Headache: Plan: Symptoms extend from cervical area toward frontal on the right side, and extending to V1, V2, and V3 distributions. no signs of shingles Neurology suggested topiramate and increased dose 08/05/21 (3) Hyperlipidemia: Plan: - Continue rosuvastatin 20 mg daily (4) COPD (chronic obstructive pulmonary disease): Plan: No wheezing. - Continue usual inhalers (5) Abdominal pain: Plan: Chronic abdominal pain/incisional hernias/history of major abdominal surgery. Reports upcoming evaluation with [facility] surgery [facility]. - No acute change today - Continue dicyclomine (6) Incisional hernia: Plan: See above (7) Depression: Plan: - Continue oxcarbazepine, mirtazapine (8) DVT prophylaxis: Plan: Lovenox 40 mg SQ daily Admission and Anticipated Discharge Date Admission Date: August 03, 2021 Subjective Reports neck pain has not dramatically changed. Feels arm is stronger, facial droop and lack of right eye lid approximation, plus lack of ability to raise right eyebrow, reinfroces that this is bells palsy. Reports no fevers/chills, chest pain, shortness of breath, abdominal pain, nausea, or vomiting. Review of Systems Review of Systems: Mild distress and fatigue no headache, no visual changes no speech or swallowing issues no chest pain, pressure or palpitations no shortness of breath, cough or wheezes no abdominal pain, nausea or vomiting, diarrhea or constipation no dysuria, hematuria or frequency no focal joint pain or swelling no back pain, CVA tenderness or radicular pain no bruising, bleeding or rashes Right facial paresthesias not pain patient will drooping inability to approximate right eye plus some weakness to his right leg however this is improving Physical Exam Physical Exam: The patient appeared well nourished and normally developed. Vital signs as documented. Head exam is normocephalic atraumatic right facial droop inability approximate right eye lid Neck is without JVD, thyromegaly, or carotid bruits patient has reproducible tenderness to the right posterior neck Lungs are clear to auscultation, no focal loss of breath sounds Cardiac exam, Rhythm is regular.. No murmurs, rubs or gallops. Abdominal exam reveals normal bowel sounds, soft non tender, no masses Extremities are nonedematous and both pedal pulses are present Neurologic exam is alert and oriented, facial drooping and continued right arm and leg weakness maybe somemild improvement after steroids Skin is without bruises or rashes no concerns for shingles rash is seen at this time Psychologically is without concerns for anxiety or depression. Results & Data Results & Data ([facility]) Vital Signs (Past 12 Hours) Vital Signs Temp Pulse Pulse Pulse Resp BP BP 08/08/21 15:24 97.9 F 84 18 161/84 H 08/08/21 14:59 97.9 F 83 20 155/80 H 08/08/21 11:53 97.7 F 81 20 148/81 H 08/08/21 07:52 97.9 F 79 20 143/81 H 08/08/21 07:42 79 08/08/21 04:24 97.9 F 71 20 157/85 H Pulse Ox 08/08/21 15:24 94 08/08/21 14:59 95 08/08/21 11:53 97 08/08/21 07:52 94 08/08/21 07:42 08/08/21 04:24 97 PG Care Time/CCT Total # of Minutes Spent Total Time Spent with Patient: Total time spent is greater than 50% in coordination of care (as documented) at patient's floor/unit and/or counseling patient: Coding Level of Care Code 00273 Subseq Hosp Care Lvl 3 Diagnoses Stroke-like symptoms R29.90 Headache R51.9 Headache chronicity pattern: acute headache Headache type: unspecified Intractability: intractable Hyperlipidemia E78.5 COPD (chronic obstructive pulmonary disease) J44.9 Abdominal pain R10.9 Abdominal location: unspecified location Incisional hernia K43.2 Obstruction and gangrene presence: without obstruction or gangrene Depression F32.9 DVT prophylaxis Z29.9 (1) Headache Headache chronicity pattern: acute headache Headache type: unspecified Intractability: intractable Qualified Code(s): R51.9 - Headache, unspecified (2) Incisional hernia Obstruction and gangrene presence: without obstruction or gangrene Qualified Code(s): K43.2 - Incisional hernia without obstruction or gangrene (3) Abdominal pain Abdominal location: unspecified location Qualified Code(s): R10.9 - Unspecified abdominal pain
--- NOTE | 2021-08-08 16:22 | Orthopedic Consultation ---
Date of Consultation August 08, 2021 Assessment & Plan (1) Myelopathy concurrent with and due to spinal stenosis of cervical region: Assessment cervical spinal stenosis with myeloradiculopathy. Plan at this time component of his right upper extremity symptoms could very well be the severe pathology of his cervical spine. This may ultimately require surgical treatment. In light of his leg symptoms which could be secondary to the myelopathy in the cervical spine I would like to nevertheless obtain an MRI of the thoracic and lumbar spine. Make further conditions upon completion of the scans and review of his case with his treating physicians. 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 He also notes severe cervicalgia at that time. Does have a history of migraines. Since his admission he is also developed weakness and pain numbness tingling in the right upper extremity states he goes in all fingers. He also notes strength deficits sensory deficits of the right lower extremity. He states he does have a history of spinal disease involving his neck and lumbar spine. MRI of the cervical spine was obtained demonstrating severe multilevel spinal stenosis with displacement the cord and possible myelomalacia. This is most evident at C5-C6 C6-C7. Denies any precipitating trauma fall or event. Again he states he has had treatment to his lumbar spine in the past including injections. Allergies Allergy/AdvReac Type Severity Reaction Status Date / Time Iodinated Contrast Media Allergy Swelling Verified 07/31/21 20:36 of Lip/Tongue/Throat Home Medications Medication Instructions Recorded Confirmed Type levalbuterol tartrate 45 2 inh INHALATION QID PRN 10/29/20 07/31/21 History mcg/actuation aerosol inhaler (Xopenex HFA) mirtazapine 45 mg tablet 45 mg PO HS 10/29/20 07/31/21 History pantoprazole 40 mg tablet,delayed 40 mg PO DAILY 10/29/20 07/31/21 History release rosuvastatin 20 mg tablet 20 mg PO HS tab 10/29/20 07/31/21 History simethicone 80 mg chewable tablet 80 mg PO BID tab 10/29/20 07/31/21 History (Mi-Acid Gas Relief (simethicone)) oxcarbazepine 600 mg tablet 1,200 mg PO BID 04/04/21 07/31/21 History acetaminophen 300 mg-codeine 30 mg 2 tab PO BID 07/31/21 07/31/21 History tablet ammonium lactate 12 % topical cream 1 applic TOPICAL BID 07/31/21 07/31/21 History dicyclomine 20 mg tablet 40 mg PO BID 07/31/21 07/31/21 History fluticasone furoate 200 1 inh INHALATION DAILY 07/31/21 07/31/21 History mcg-vilanterol 25 mcg/dose inhalation powder (Breo Ellipta) furosemide 20 mg tablet 20 mg PO DAILY PRN 07/31/21 07/31/21 History magnesium hydroxide 400 mg/5 mL 30 ml PO DAILY PRN 07/31/21 07/31/21 History oral suspension (Milk of Magnesia) umeclidinium 62.5 mcg/actuation 1 inh INHALATION DAILY 07/31/21 07/31/21 History blister powder for inhalation (Incruse Ellipta) Patient History Medical History Cholelithiasis without obstruction COPD (chronic obstructive pulmonary disease) Depression Hyperlipidemia Hypertension Incisional hernia Morbid obesity Surgical History History of major abdominal surgery Family History Mother , age 76 of lung cancer Breast cancer Lung cancer Stroke Myocardial infarction Father , age 54 of cancer (uncertain type) Cancer Social History (Updated 08/02/21 @ 10:04 by Lee Mixon MD) Smoking Status: Former smoker Number of Years Since Quit: 12; Hx Alcohol Use: No Hx Substance Use: No Preferred Language: Iraqi Communication Ability: Effective Accident Examiner Required: No Beliefs That Will Affect Care: None marital status: Single Current Living Situation: Other Current Living Situation Comment: 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 He is cooperative. He has marked limitation with cervical extension as this reproduces cervical thoracic pain and right upper extremity discomfort. He exhibits weakness globally to exam of his right upper extremity with weak grasp biceps triceps and deltoid at a 4-/5. The left appears to be 5/5. He has bilateral Alicia sign. He has no evidence of a clonus to lower extremities. Deep tendon reflexes are absent. He exhibits reasonable 5 or 5 left dorsiflexion extensor pollicis longus with breakaway weakness on the right. He notes significant sensory deficits to the right lower extremity. Results & Data ([facility]) Vital Signs (Past 12 Hours) Vital Signs Temp Pulse Pulse Pulse Resp BP BP 08/08/21 15:24 36.6 C 84 18 161/84 H 08/08/21 14:59 36.6 C 83 20 155/80 H 08/08/21 11:53 36.5 C 81 20 148/81 H 08/08/21 07:52 36.6 C 79 20 143/81 H 08/08/21 07:42 79 08/08/21 04:24 36.6 C 71 20 157/85 H Pulse Ox 08/08/21 15:24 94 08/08/21 14:59 95 08/08/21 11:53 97 08/08/21 07:52 94 08/08/21 07:42 08/08/21 04:24 97
[2021-08-08] MEDS: ROSUVASTATIN CALCIUM 20 MG TAB PO SCH (20:40)
[2021-08-08] MEDS: MIRTAZAPINE SOLTAB 15 MG PO SCH (20:41)
[2021-08-09] MEDS ORDERED: LORazepam 1 MG TAB PO STA (00:24)
[2021-08-09] MEDS: HYDROcodone/ACETAMINOPHEN 10/325 TAB PO PRN ×4 (03:08→23:32)
--- NOTE | 2021-08-09 08:31 | Magnetic Resonance Report ---
MR lumbar spine wo con CLINICAL HISTORY: Low back pain with leg weakness. COMPARISON: None. TECHNIQUE: Multiplanar multisequence images of the Lumbar Spine were performed without contrast. FINDINGS: There is no evidence for vertebral body fracture. The heights of the vertebral bodies are maintained. The vertebral bodies are in anatomic alignment. Homogeneous marrow signal is seen without evidence f or marrow edema or marrow replacement. T12-L1: The disc space height is maintained. There are no focal disc protrusions or extrusions ident ified. The thecal sac and epidural fat are maintained. The neural foramen are patent bilaterally. Th ere is no evidence for nerve root encroachment. The facet joints are within normal limits. L1-2: The disc space height is maintained. There are no focal disc protrusions or extrusions identi fied. The thecal sac and epidural fat are maintained. The neural foramen are patent bilaterally. The re is no evidence for nerve root encroachment. The facet joints are within normal limits. L2-3: The disc space height is maintained. There are no focal disc protrusions or extrusions identi fied. The thecal sac and epidural fat are maintained. The neural foramen are patent bilaterally. The re is no evidence for nerve root encroachment. The facet joints are within normal limits. L3-4: The disc space height is maintained. There are no focal disc protrusions or extrusions identi fied. The thecal sac and epidural fat are maintained. The neural foramen are patent bilaterally. The re is no evidence for nerve root encroachment. The facet joints are within normal limits. L4-5: The disc space height is maintained. There are no focal disc protrusions or extrusions identi fied. The thecal sac and epidural fat are maintained. The neural foramen are patent bilaterally. The re is no evidence for nerve root encroachment. The facet joints are within normal limits. L5-S1: There is mild disc desiccation with a small left paracentral disc protrusion/herniation pres ent. Due to the increase amount of epidural fat anterior to the thecal sac, there is no encroachment upon the thecal sac demonstrated. However, it does abut the left S1 nerve root as it enters lateral recess. The neural foramen are patent bilaterally. There is no evidence for nerve root encroachment. The facet joints are within normal limits. IMPRESSION: 1. Small left paracentral disc protrusion/herniation at L5-S1 abutting the left S1 nerve root. No rig ht-sided nerve root encroachment is identified. ACT 112: Negative or not required by law. Electronically signed by: North Quezada M.D. 08/09/2021 8:30 AM
--- NOTE | 2021-08-09 09:29 | Magnetic Resonance Report ---
MRI OF THE THORACIC SPINE WITHOUT IV CONTRAST CLINICAL HISTORY: Lower extremity weakness. COMPARISON STUDY: Chest CT dated 04/05/2021. TECHNIQUE: MRI of the thoracic spine is performed utilizing various T1 and T2-weighted sequences in t he axial and sagittal planes. IV contrast was not administered for this examination. The examination is modestly degraded by motion artifact. FINDINGS: Vertebral body height and alignment are maintained throughout the thoracic spine. Tiny ante rior osteophytes are noted in the lower thoracic region. The spinous processes appear intact. There i s no marrow edema or destructive bony lesion. There is mild degenerative disc desiccation. The disc s paces are maintained. There is no disc herniation or central canal stenosis throughout the thoracic r egion. A posterior disc osteophyte complex at C6-C7 abuts the ventral cord. The thoracic spinal cord is normal in morphology and signal intensity. The conus medullaris terminates at the T12-L1 interspac e. There is no evidence of significant neural foraminal narrowing throughout the thoracic region. The paraspinous soft tissues are normal as visualized. No pleural effusion is seen. IMPRESSION: 1. There is no disc herniation, central canal stenosis, or neural foraminal narrowing seen throughout the thoracic region. 2. A posterior disc osteophyte complex at C6-C7 abuts the ventral cord. This is only seen on the sagi ttal sequences. 3. The thoracic spinal cord is normal in morphology and signal intensity. 4. No destructive bony process is identified. Dictated: 08/09/2021 8:46 AM Transcribed: 08/09/2021 9:09 AM Nadine [id number] [email or web address]_Chanel Electronically signed by: Anjum Michelle M.D. 08/09/2021 9:28 AM
[2021-08-09] MEDS: DICYCLOMINE HCL 20 MG TAB PO SCH ×2 (10:39→22:15)
[2021-08-09] MEDS: OXcarbazepine 150 MG TABLET PO SCH ×2 (10:39→19:41)
[2021-08-09] MEDS: DICLOFENAC SOD 1% GEL 100 GM TUBE EXT SCH ×3 (10:39→19:38)
[2021-08-09] MEDS: AMMONIUM LACTATE 12% LOTION 225 GM BTL EXT SCH ×2 (10:39→19:37)
[2021-08-09] MEDS: TOPIRAMATE 50 MG TAB PO SCH ×2 (10:40→19:39)
[2021-08-09] MEDS: valACYclovir HCL 500 MG TABLET PO SCH ×3 (10:40→19:38)
[2021-08-09] MEDS: predniSONE 20 MG TAB PO SCH (10:40)
[2021-08-09] MEDS: FLUTICASONE/VILANTEROL 200/25MCG 14 PUFFS/INHALER INH SCH (10:41)
[2021-08-09] MEDS: PANTOprazole 40 MG TAB PO SCH (10:41)
[2021-08-09] MEDS: UMECLIDINIUM BROMIDE 62.5MCG/BLISTER 7 PUFFS/INHALER INH SCH (10:41)
[2021-08-09] MEDS: SIMETHICONE 80 MG CHEW PO SCH ×2 (10:42→19:38)
[2021-08-09] MEDS: MoRPHine SULFATE 2 MG/ML CARP IV PRN ×2 (13:17→20:00)
--- NOTE | 2021-08-09 17:06 | Hospitalist Progress Note ---
Date of Service August 09, 2021 Assessment & Plan (1) Stroke-like symptoms: Plan: Strokelike symptoms/right-sided headache/right-sided numbness. Headache began on Sunday. Neurologic symptoms began on 07/31. - MRI brain on 08/01 with *no* acute or prior CVA. - Carotid Dopplers on 08/01 without significant stenosis. - Discussed with neurology on 08/02 & 08/03. Peripheral CN VIII. Given equivocal Lyme, started doxycycline, but stopped after Western Blot was negative. For complex migraine symptoms, took Medrol Dosepak. - Added topiramate 50 mg PO BID for headache. Added heat pad and Voltaren gel for neck pain. 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 No improvement thus far after 3 days. -> For right arm and leg, MRIs of cervical, thoracic, and lumbar spine were done. CT cervical spine showed "C6-C7 level severe central canal and severe bilateral neural foraminal narrowing" with "increased T2 signal within the C6 level the spinal cord." -> Discussed with ortho spine on 08/09 - Feel we cannot handle this here. Will reach out to [place] to determine if NSGY will see him there. (2) Headache: Plan: Symptoms extend from cervical area toward frontal on the right side, and extending to V1, V2, and V3 distributions. Differential includes: Herpetic neuralgia, muscle spasm, cervical radiculopathy involving C1 and C2. - As above (3) Hyperlipidemia: Plan: - Continue rosuvastatin 20 mg daily (4) COPD (chronic obstructive pulmonary disease): Plan: No wheezing. - Continue usual inhalers (5) Abdominal pain: Plan: Chronic abdominal pain/incisional hernias/history of major abdominal surgery. [facility] [place] - No acute change today - Continue dicyclomine (6) Incisional hernia: Plan: See above (7) Depression: Plan: - Continue oxcarbazepine, mirtazapine (8) DVT prophylaxis: Plan: Lovenox 40 mg SQ daily Admission and Anticipated Discharge Date Admission Date: August 03, 2021 Subjective No change today. Sleeping when I come in, but reports the headache is still very bad. No change in upper or lower extremity strength. Physical Exam Constitutional: WD/WN, vitals as above Eyes: EOM intact bilaterally; no conjunctival abnormality ENMT: external ear and nose normal, oropharynx normal Neck: trachea midline, no thyromegaly normal visual inspection Respiratory: normal respiratory effort, lungs clear to auscultation no respiratory distress Cardiovascular: RRR, no murmur, no edema Gastrointestinal (Abdomen): Inspection/Auscultation: abdomen normal to inspection; abdomen not distended Musculoskeletal: Extremities: + abnormal strength (Weaker on right side) Skin: no rashes, warm and dry Neurologic: moves all extremities and awake Psychiatric: Orientation: alert, oriented to person and cooperative Results & Data Results & Data ([facility]) Vital Signs (Past 12 Hours) Vital Signs Temp Pulse Pulse Resp BP Pulse Ox 08/09/21 16:00 90 08/09/21 14:52 36.4 C L 97 H 22 123/77 93 08/09/21 11:07 36.5 C 84 20 151/91 H 96 08/09/21 08:02 36.6 C 77 20 128/74 97 08/09/21 08:00 74 08/09/21 06:22 85 PG Care Time/CCT Total # of Minutes Spent Total Time Spent with Patient: Total time spent is greater than 50% in coordination of care (as documented) at patient's floor/unit and/or counseling patient: Coding Level of Care Code 77242 Subseq Hosp Care Lvl 2 Diagnoses Stroke-like symptoms R29.90 Headache R51.9 Headache chronicity pattern: acute headache Headache type: unspecified Intractability: intractable Hyperlipidemia E78.5 COPD (chronic obstructive pulmonary disease) J44.9 Abdominal pain R10.9 Abdominal location: unspecified location Incisional hernia K43.2 Obstruction and gangrene presence: without obstruction or gangrene Depression F32.9 DVT prophylaxis Z29.9 (1) Headache Headache chronicity pattern: acute headache Headache type: unspecified Intractability: intractable Qualified Code(s): R51.9 - Headache, unspecified (2) Abdominal pain Abdominal location: unspecified location Qualified Code(s): R10.9 - Unspecified abdominal pain (3) Incisional hernia Obstruction and gangrene presence: without obstruction or gangrene Qualified Code(s): K43.2 - Incisional hernia without obstruction or gangrene
[2021-08-09] MEDS: ARTIFICIAL TEARS OP OINT 3.5 GM TUBE OP SCH (19:38)
[2021-08-09] MEDS: ROSUVASTATIN CALCIUM 20 MG TAB PO SCH (19:39)
[2021-08-09] MEDS: MIRTAZAPINE SOLTAB 15 MG PO SCH (19:41)
[2021-08-10] MEDS: MoRPHine SULFATE 2 MG/ML CARP IV PRN ×4 (00:14→21:03)
[2021-08-10 07:20] LABS: Hematocrit (blood only) 39.1 % (42-52); Hemoglobin 12.8 g/dL (14.0-18.0); Mean Corpuscular Hemoglobin 29.6 pg (25-34); Mean Corpuscular Hgb Conc 32.7 g/dL (32-36); Mean Corpuscular Volume 90.5 fL (80-100); Mean Platelet Volume 9.7 fL (7.4-10.4); Platelet Count 225 K/uL (130-400); RDW Standard Deviation 43.6 fL (36.4-46.3); Red Blood Count 4.32 M/uL (4.7-6.1); White Blood Count 12.05 K/uL (4.8-10.8)
[2021-08-10] MEDS: HYDROcodone/ACETAMINOPHEN 10/325 TAB PO PRN ×2 (07:44→16:10)
[2021-08-10 07:49] LABS: BUN Creatinine Ratio 24.2 (10-20); Calcium 8.4 mg/dl (8.5-10.1); Creatinine Clr Calc Pharmacy 200.7 ml/min; Est GFR (African American) 130.6 ml/min; Est GFR (Non-African American) 112.6 ml/min; Magnesium 2.3 mg/dl (1.8-2.4); Potassium 3.2 mmol/L (3.5-5.1)
[2021-08-10 07:59] LABS: Thyroid Stimulating Hormone 0.838 uIu/ml (0.300-4.500)
[2021-08-10] MEDS: DICYCLOMINE HCL 20 MG TAB PO SCH ×2 (09:11→21:06)
[2021-08-10] MEDS: valACYclovir HCL 500 MG TABLET PO SCH ×3 (09:17→21:05)
[2021-08-10] MEDS: OXcarbazepine 150 MG TABLET PO SCH ×2 (09:18→21:08)
[2021-08-10] MEDS: FLUTICASONE/VILANTEROL 200/25MCG 14 PUFFS/INHALER INH SCH (09:18)
[2021-08-10] MEDS: SIMETHICONE 80 MG CHEW PO SCH ×2 (09:19→21:07)
[2021-08-10] MEDS: PANTOprazole 40 MG TAB PO SCH (09:19)
[2021-08-10] MEDS: TOPIRAMATE 50 MG TAB PO SCH ×2 (09:19→21:07)
[2021-08-10] MEDS: UMECLIDINIUM BROMIDE 62.5MCG/BLISTER 7 PUFFS/INHALER INH SCH (09:20)
[2021-08-10] MEDS: DICLOFENAC SOD 1% GEL 100 GM TUBE EXT SCH ×3 (12:26→21:05)
[2021-08-10] MEDS: AMMONIUM LACTATE 12% LOTION 225 GM BTL EXT SCH ×2 (12:27→21:04)
--- NOTE | 2021-08-10 15:10 | Hospitalist Progress Note ---
Date of Service August 10, 2021 Assessment & Plan (1) Stroke-like symptoms: Plan: Strokelike symptoms/right-sided headache/right-sided numbness. Headache began on Sunday, 07/29. Neurologic symptoms began on 07/31. - MRI brain on 08/01 with *no* acute or prior CVA. Repeated with close brainstem cuts on 08/02. Still no stroke. - Carotid Dopplers on 08/01 without significant stenosis. - Discussed with neurology on 08/02 & 08/03. Peripheral CN VIII. Given equivocal Lyme, started doxycycline, but stopped after Western Blot was negative. For complex migraine symptoms, took Medrol Dosepak. - Added topiramate 50 mg PO BID for headache. Stopped on 08/10 as it had not helped, and this pain seems to all stem from his cervical stenosis rather than a migraine. - Added heat pad and Voltaren gel on 08/04 for neck pain. 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 No improvement thus far after 3 days. -> For right arm and leg, MRIs of cervical, thoracic, and lumbar spine were done. CT cervical spine showed "C6-C7 level severe central canal and severe bilateral neural foraminal narrowing" with "increased T2 signal within the C6 level the spinal cord." -> Discussed with ortho spine on 08/09 - Feel we cannot handle this here. Will reach out to [place] to determine if NSGY will see him there. (2) Headache: Plan: Symptoms extend from cervical area toward frontal on the right side, and extending to V1, V2, and V3 distributions. Differential includes: Herpetic neuralgia, muscle spasm, cervical radiculopathy. - As above; feel this is likely his spinal stenosis. Have tried a Medrol dosepak (for status migrainosis), Valtrex (for [place]-Mendenhall syndrome), topiramate (again for migraine). Have tried Voltaren gel and heat packs. So far, none have improved the pain. (3) Hyperlipidemia: Plan: - Continue rosuvastatin 20 mg daily (4) COPD (chronic obstructive pulmonary disease): Plan: No wheezing. No report of shortness of breath. - Continue usual inhalers (5) Abdominal pain: Plan: Chronic abdominal pain/incisional hernias/history of major abdominal surgery. Reports upcoming evaluation with [facility]. - No acute change today - Continue dicyclomine (6) Incisional hernia: Plan: See above (7) Depression: Plan: - Continue oxcarbazepine, mirtazapine (8) DVT prophylaxis: Plan: Lovenox 40 mg SQ daily Admission and Anticipated Discharge Date Admission Date: August 03, 2021 Subjective No change today. Reports the neck pain is still very bad. It has centered more on the right neck area instead of being an overall headache. No change in upper or lower extremity strength. Physical Exam Constitutional: WD/WN, vitals as above Eyes: EOM intact bilaterally; no conjunctival abnormality ENMT: external ear and nose normal, oropharynx normal Neck: trachea midline, no thyromegaly normal visual inspection Respiratory: normal respiratory effort, lungs clear to auscultation no respiratory distress Cardiovascular: RRR, no murmur, no edema Gastrointestinal (Abdomen): Inspection/Auscultation: abdomen normal to inspection; abdomen not distended Musculoskeletal: Extremities: + abnormal strength (Weaker on right side) Skin: no rashes, warm and dry Neurologic: moves all extremities and awake Psychiatric: Orientation: alert, oriented to person and cooperative Results & Data Results & Data ([facility]) Vital Signs (Past 12 Hours) Vital Signs Temp Pulse Pulse Resp BP Pulse Ox 08/10/21 07:49 74 08/10/21 07:46 36.5 C 75 22 145/78 H 94 PG Care Time/CCT Total # of Minutes Spent Total Time Spent with Patient: Total time spent is greater than 50% in coordination of care (as documented) at patient's floor/unit and/or counseling patient: Coding Level of Care Code 79847 Subseq Hosp Care Lvl 2 Diagnoses Stroke-like symptoms R29.90 Headache R51.9 Headache chronicity pattern: acute headache Headache type: unspecified Intractability: intractable Hyperlipidemia E78.5 COPD (chronic obstructive pulmonary disease) J44.9 Abdominal pain R10.9 Abdominal location: unspecified location Incisional hernia K43.2 Obstruction and gangrene presence: without obstruction or gangrene Depression F32.9 DVT prophylaxis Z29.9 (1) Headache Headache chronicity pattern: acute headache Headache type: unspecified Intractability: intractable Qualified Code(s): R51.9 - Headache, unspecified (2) Abdominal pain Abdominal location: unspecified location Qualified Code(s): R10.9 - Unspecified abdominal pain (3) Incisional hernia Obstruction and gangrene presence: without obstruction or gangrene Qualified Code(s): K43.2 - Incisional hernia without obstruction or gangrene
--- NOTE | 2021-08-10 17:38 | Discharge Summary ---
Date of Service August 10, 2021 Admission HPI Per Admitting Provider The patient is a 51-year-old male with a past medical history including depression, hyperlipidemia, hypertension, COPD, chronic abdominal pain, incisional hernia, previous major abdominal surgeries, morbid obesity, c holelithiasis without obstruction and insomnia. Patient presents with symptoms as noted above. 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) 2) Severe cervical spinal stenosis Discharge Exam Constitutional WD/WN, vitals as above Eyes EOM intact bilaterally; no conjunctival abnormality ENMT external ear and nose normal, oropharynx normal Neck trachea midline, no thyromegaly normal visual inspection Respiratory normal respiratory effort, lungs clear to auscultation no respiratory distress Cardiovascular RRR, no murmur, no edema Gastrointestinal (Abdomen) Inspection/Auscultation: abdomen normal to inspection; abdomen not distended Musculoskeletal Extremities: + abnormal strength (Weaker on right side) Skin no rashes, warm and dry Neurologic moves all extremities and awake Psychiatric Orientation: alert, oriented to person and cooperative Discharge Data Allergies Allergy/AdvReac Type Severity Reaction Status Date / Time Iodinated Contrast Media Allergy Swelling Verified 07/31/21 20:36 of Lip/Tongue/Throat Consultations 07/31/21 21:57 ED Decision to Admit Stat 08/02/21 09:24 Consult Neurology Routine 08/08/21 09:06 Consult Orthopedic Surgery Routine Ordered Studies 07/31/21 20:28 CT head/brain wo con Stat 08/01/21 03:35 MR brain wo con Routine US carotid doppler BI Routine 08/02/21 12:55 MR brain wo/w con Routine 08/07/21 MR cervical spine wo con Routine 08/09/21 16:15 MR thoracic spine wo con Routine 08/09/21 16:16 MR lumbar spine wo con Routine Hospital Course (1) Stroke-like symptoms: Strokelike symptoms/right-sided headache/right-sided numbness. Headache began on Sunday, 07/29. Neurologic symptoms began on 07/31. - MRI brain on 08/01 with *no* acute or prior CVA. Repeated with close brainstem cuts on 08/02. Still no stroke. - Carotid Dopplers on 08/01 without significant stenosis. ---NOT a stroke; felt to be 2 separate issues: 1) Right Brasher's palsy (possibly from J&J Covid vaccine 3 weeks ago) and 2) Severe cervical stenosis 1) - Discussed with neurology on 08/02 & 08/03. Peripheral CN VIII (Brasher'sy palsy). Given equivocal Lyme, started doxycycline, but stopped after Western Blot was negative. Prior provider felt that it was possible this was [place]-Mendenhall syndrome, and started valacyclovir. No improvement thus far after 3 days. 2) -> For right arm and leg, MRIs of cervical, thoracic, and lumbar spine were done. CT cervical spine showed "C6-C7 level severe central canal and severe bilateral neural foraminal narrowing" with "increased T2 signal within the C6 level the spinal cord." -> Discussed with ortho spine on 08/09 - Feel we cannot handle this here. Will reach out to [place] to determine if NSGY will see him there. (2) Headache: Symptoms extend from cervical area toward frontal on the right side, and extending to V1, V2, and V3 distributions. Differential includes: Herpetic neuralgia, muscle spasm, cervical radiculopathy. - For complex migraine symptoms, took Medrol Dosepak. - Added topiramate 50 mg PO BID for headache. Stopped on 08/10 as it had not helped, and this pain seems to all stem from his cervical stenosis rather than a migraine. - Added heat pad and Voltaren gel on 08/04 for neck pain. - As above; feel this is likely his spinal stenosis. Have tried a Medrol dosepak (for status migrainosus), Valtrex (for John-Mendenhall syndrome), topiramate (again for migraine). Have tried Voltaren gel and heat packs. So far, none have improved the pain. (3) Hyperlipidemia: - Continue rosuvastatin 20 mg daily (4) COPD (chronic obstructive pulmonary disease): No wheezing. No report of shortness of breath. - Continue usual inhalers (5) Abdominal pain: Chronic abdominal pain/incisional hernias/history of major abdominal surgery. [facility] [place]. - No acute change today - Continue dicyclomine (6) Incisional hernia: See above (7) Depression: - Continue oxcarbazepine, mirtazapine (8) DVT prophylaxis: Lovenox 40 mg SQ daily Total Time Total Time Spent Total Time Spent (In Minutes): 35 Discharge Plan Discharge Items Patient Disposition: Transfer Acute Care Hospital Reason For Visit: STROKE-LIKE SYMPTOMS Discharge Diagnosis: Cervical stenosis and separate Brasher's palsy Activity: Resume your previous activity Non-emergency contact: Primary Care Provider Call non-emergency contact if: your symptoms worsen Follow-up/Referrals: Giselle MCKEON [Primary Care Provider] - Diet: Regular Addtl Attending Provider Instructions: (1) Stroke-like symptoms: Plan: Strokelike symptoms/right-sided headache/right-sided numbness. Headache began on Sunday, 07/29. Neurologic symptoms began on 07/31. - MRI brain on 08/01 with *no* acute or prior CVA. Repeated with close brainstem cuts on 08/02. Still no stroke. - Carotid Dopplers on 08/01 without significant stenosis. ---NOT a stroke; felt to be 2 separate issues: 1) Right Brasher's palsy (possibly from J&J Covid vaccine 3 weeks ago) and 2) Severe cervical stenosis 1) - Discussed with neurology on 08/02 & 08/03. Peripheral CN VIII (Brasher'sy palsy). Given equivocal Lyme, started doxycycline, but stopped after Western Blot was negative. Prior provider felt that it was possible this was [place]-Mendenhall syndrome, and started valacyclovir. No improvement thus far after 3 days. 2) -> For right arm and leg, MRIs of cervical, thoracic, and lumbar spine were done. CT cervical spine showed "C6-C7 level severe central canal and severe bilateral neural foraminal narrowing" with "increased T2 signal within the C6 level the spinal cord." -> Discussed with ortho spine on 08/09 - Feel we cannot handle this here. Will reach out to [place] to determine if NSGY will see him there. (2) Headache: Plan: Symptoms extend from cervical area toward frontal on the right side, and extending to V1, V2, and V3 distributions. Differential includes: Herpetic neuralgia, muscle spasm, cervical radiculopathy. - For complex migraine symptoms, took Medrol Dosepak. - Added topiramate 50 mg PO BID for headache. Stopped on 08/10 as it had not helped, and this pain seems to all stem from his cervical stenosis rather than a migraine. - Added heat pad and Voltaren gel on 08/04 for neck pain. - As above; feel this is likely his spinal stenosis. Have tried a Medrol dosepak (for status migrainosis), Valtrex (for John-Mendenhall syndrome), topiramate (again for migraine). Have tried Voltaren gel and heat packs. So far, none have improved the pain. (3) Hyperlipidemia: Plan: - Continue rosuvastatin 20 mg daily (4) COPD (chronic obstructive pulmonary disease): Plan: No wheezing. No report of shortness of breath. - Continue usual inhalers (5) Abdominal pain: Plan: Chronic abdominal pain/incisional hernias/history of major abdominal surgery. [facility] - No acute change today - Continue dicyclomine (6) Incisional hernia: Plan: See above (7) Depression: Plan: - Continue oxcarbazepine, mirtazapine (8) DVT prophylaxis: Plan: Lovenox 40 mg SQ daily Pending Studies at Discharge: No Stand-Alone Forms: [facility] Skilled Items Patient informed of condition?: Yes DNR: No Discharge Level of Care: Other Communicable Disease: No Discharge Prognosis: Stable Lines: Peripheral IV Urinary Catheter: No Medications and DC Order Prescriptions: New Artificial Tears (tien/min) 83-15 % Ointment 1 applic ophthalmic (eye) HS Qty: 0 RF: 0 diclofenac sodium [Voltaren Arthritis Pain] 1 % Gel 2 g EXT TID Qty: 0 RF: 0 Continued pantoprazole 40 mg tablet,delayed release (DR/EC) 40 mg PO DAILY RF: 0 rosuvastatin 20 mg tablet 20 mg PO HS RF: 0 simethicone [Mi-Acid Gas Relief(simethicon)] 80 mg tablet,chewable 80 mg PO BID RF: 0 mirtazapine 45 mg tablet 45 mg PO HS RF: 0 levalbuterol tartrate [Xopenex HFA] 45 mcg/actuation HFA aerosol inhaler 2 inh inhalation QID PRN (Reason: Shortness Of Breath) RF: 0 oxcarbazepine 600 mg Tablet 1,200 mg PO BID RF: 0 acetaminophen-codeine 300-30 mg Tablet 2 tab PO BID RF: 0 magnesium hydroxide [Milk of Magnesia] 400 mg/5 mL Suspension 30 ml PO DAILY PRN (Reason: Constipation) RF: 0 dicyclomine 20 mg Tablet 40 mg PO BID RF: 0 ammonium lactate 12 % Cream 1 applic TOPICAL BID RF: 0 Incruse Ellipta 62.5 mcg/actuation Blister With Device 1 inh INHALATION DAILY RF: 0 Breo Ellipta 200-25 mcg/dose Blister With Device 1 inh INHALATION DAILY RF: 0 Discontinued furosemide 20 mg Tablet 20 mg PO DAILY PRN (Reason: Edema) RF: 0 Discharge Orders: Discharge Order (Routine); Ordered 08/10/21 Ordered By: Mariusz Marie Admission Data Admit Date/Time: 08/03/21 13:52 Attending Provider: Mariusz Marie Admit Provider: Robbie Valenzuela Primary Care Provider: Giselle MCKEON Other Providers: Lee Mixon ; Noel Alejandro Coding Level of Care Code D/C DAY MANAGEMENT >30 MINS Diagnoses Stroke-like symptoms R29.90 Headache R51.9 Headache chronicity pattern: acute headache Headache type: unspecified Intractability: intractable Hyperlipidemia E78.5 COPD (chronic obstructive pulmonary disease) J44.9 Abdominal pain R10.9 Abdominal location: unspecified location Incisional hernia K43.2 Obstruction and gangrene presence: without obstruction or gangrene Depression F32.9 DVT prophylaxis Z29.9
[2021-08-10] MEDS: ARTIFICIAL TEARS OP OINT 3.5 GM TUBE OP SCH (21:05)
[2021-08-10] MEDS: ROSUVASTATIN CALCIUM 20 MG TAB PO SCH (21:07)
[2021-08-10] MEDS: MIRTAZAPINE SOLTAB 15 MG PO SCH (21:11)
[2021-08-11] MEDS: MoRPHine SULFATE 2 MG/ML CARP IV PRN (02:45)
== END 2021-08-11 03:18 | disposition short-term general hospital (02) | DRG 74 ==
LOC: ED 20:10 → EDINP 23:13 → INTOOBSV 23:13 → SUATTDRO 23:13 → 2N 08-01 01:11 → SUATTDRO 08-03 13:52